=== PATIENT | female | born 1955 | race Caucasian/White ===

== ENCOUNTER 2021-09-17 01:23 | Observation (INO) | payer MEDICARE ==
--- NOTE | 2021-09-17 01:33 | ERPHSYRPT ---
- History of Present Illness Time Seen by Provider: 09/17/21 01:32 Source: patient, EMS Exam Limitations: clinical condition Physician History: This is a 66-year-old white female who has a history of hypothyroidism and arthritis and was recently placed on Humira. Patient took her first dose of Humira last night. Patient son said the last time he saw her was last evening. She woke up this morning confused and staring off into space. EMS service brought her in. There was a concern of a possible stroke. Patient denies hitting her head. She arrives to the emergency department vital signs normal and she is moving all her extremities. Patient's son states that she had a similar episode when they, in the past, attempted to take her off of thyroid medication. Patient reports, and son confirms that relatively recently she was taken off of thyroid medicine completely. Her primary care doctor is Dr. Aguilar. Timing/Duration: today Severity: mild Character of Deficits: other (Intermittently stares off then returned to normal baseline) Baseline/Normal Cognition: alert oriented x 3 Current Cognition: alert oriented x 3 Baseline Gait: walks w/o assistance Associated Symptoms: confusion Allergies/Adverse Reactions: Penicillins Allergy (Intermediate, Verified 09/17/21 03:13) Sulfa (Sulfonamide Antibiotics) Allergy (Intermediate, Verified 09/17/21 03:13) Home Medications: Unobtainable 09/17/21 [History] Travel Risk - International Travel Have you traveled outside of the country in past 3 weeks: No - Coronavirus Screening Are you exhibiting any of the following symptoms?: No Close contact with a COVID-19 positive Pt in past 14-21 Days: No - Past Medical History Pertinent Past Medical History: Yes - Past Surgical History Past Surgical History: Yes - Nursing Vital Signs Nursing Vital Signs: Initial Vital Signs Temperature 98.1 F 09/17/21 01:23 Pulse Rate 96 H 09/17/21 01:23 Respiratory Rate 16 09/17/21 01:23 Blood Pressure 144/100 09/17/21 01:23 O2 Sat by Pulse Oximetry 94 L 09/17/21 01:23 Pain Scale Pain Intensity 0 - James Coma Scale Best Eye Response ([place]): (4) open spontaneously Best Verbal Response ([place]): (5) oriented Best Motor Response ([place]): (6) obeys commands James Total: 15 - Physical Exam General Appearance: no apparent distress, alert, anxiety, thin Eye Exam: bilateral eye: normal inspection, PERRL, EOMI Ears, Nose, Throat Exam: normal ENT inspection, moist mucous membranes Neck Exam: normal inspection, non-tender, supple, full range of motion Respiratory: normal breath sounds, lungs clear, airway intact, No chest tenderness, No respiratory distress Cardiovascular: regular rate/rhythm, normal heart sounds, normal peripheral pulses Gastrointestinal: soft, normal bowel sounds, No tenderness Pelvic Exam: not done Rectal Exam: not done Back Exam: normal inspection, normal range of motion, CVA tenderness Extremity Exam: normal inspection, normal range of motion, pelvis stable Mental Status: alert, oriented x 3, cooperative forepart laster Exam: normal hearing, normal speech, PERRL, tongue midline Coordination/Gait: normal finger to nose Motor/Sensory: no motor deficit, no sensory deficit, no pronator drift Skin Exam: normal color, warm, dry SpO2 Interpretation: normal O2 Delivery: Room Air - Course Nursing assessment & vital signs reviewed: Yes EKG Interpreted by Me: RATE ([id number]), Sinus Rhythm, NORMAL AXIS, prolonged QT interval, Non-specific ST Changes, Other (No acute ischemic changes. No comparison EKG) Ordered Tests: Active Orders 24 hr Category Date Time Status Supervisor Engine Assembly STAT Care 09/17/21 01:34 Active Clean Catch Urine Specimen STAT Care 09/17/21 01:34 Active EKG-ER Only STAT Care 09/17/21 01:33 Active IV Insertion STAT Care 09/17/21 01:33 Active NPO (ED) STAT Care 09/17/21 01:33 Active Pulse Oximetry (ED) STAT Care 09/17/21 01:33 Active HEAD WITHOUT CONTRAST [CT] Stat Exams 09/17/21 01:33 Taken CBC W DIFF Stat Lab 09/17/21 01:46 Completed CMP Stat Lab 09/17/21 01:46 Completed ETHYL ALCOHOL Stat Lab 09/17/21 01:46 Completed T4 (Thyroxine) Stat Lab 09/17/21 01:48 Completed TSH [TSH, 3RD Generation] Stat Lab 09/17/21 01:48 Completed UA W/RFX UR CULTURE Stat Lab 09/17/21 01:33 Ordered Urine Triage Profile Stat Lab 09/17/21 01:34 Ordered Medication Summary Generic Name Dose Route Start Last Admin Trade Name Freq PRN Reason Stop Dose Admin Sodium Chloride 1,000 mls @ 100 mls/hr 09/17/21 01:45 09/17/21 01:47 Sodium Chloride 0.9% 1000 Ml IV 10/17/21 01:44 100 mls/hr .Q10H ESTRELLITA Administration Lab/Rad Data: Laboratory Result Diagrams 09/17/21 01:46 09/17/21 01:46 Laboratory Results 09/17/21 09/17/21 09/17/21 Range/Units 01:48 01:46 01:46 WBC (4.0-10.5) K/mm3 RBC (4.1-5.4) M/mm3 Hgb (12.0-16.0) gm/dl Hct (35-47) % MCV (78-100) fl MCH (26-32) pg MCHC (32-36) g/dl RDW (11.5-14.0) % Plt Count (150-450) K/mm3 Gran % (36.0-66.0) % Eos # (Auto) (0-0.5) Absolute Lymphs (auto) (1.0-4.6) Absolute Monos (auto) (0.0-1.3) Lymphocytes % (24.0-44.0) % Monocytes % (0.0-12.0) % Eosinophils % (0.00-5.0) % Basophils % (0.0-0.4) % Absolute Granulocytes (1.4-6.9) Basophils # (0-0.4) Sodium (137-145) mmol/L Potassium (3.5-5.1) mmol/L Chloride (98-107) mmol/L Carbon Dioxide (22-30) mmol/L Anion Gap (5-15) MEQ/L BUN (7-17) mg/dL Creatinine (0.52-1.04) mg/dL Estimated GFR ML/MIN Glucose (74-106) mg/dL Calcium (8.4-10.2) mg/dL Total Bilirubin (0.2-1.3) mg/dL AST (14-36) U/L ALT (0-35) U/L Alkaline Phosphatase (38-126) U/L Ammonia < 9 L (9-30) umol/L Serum Total Protein (6.3-8.2) g/dL Albumin (3.5-5.0) g/dL Thyroxine (T4) 6.34 (5.53-10.96) ug/dL TSH 3rd Generation 15.700 H (0.47-4.68) mIU/L Ethyl Alcohol < 10 (0-10) mg/dL 09/17/21 09/17/21 Range/Units 01:46 01:46 WBC 3.0 L (4.0-10.5) K/mm3 RBC 4.47 (4.1-5.4) M/mm3 Hgb 14.3 (12.0-16.0) gm/dl Hct 42.5 (35-47) % MCV 95.1 (78-100) fl MCH 32.0 (26-32) pg MCHC 33.6 (32-36) g/dl RDW 17.0 H (11.5-14.0) % Plt Count 24 L* (150-450) K/mm3 Gran % 84.3 H (36.0-66.0) % Eos # (Auto) 0.01 (0-0.5) Absolute Lymphs (auto) 0.30 L (1.0-4.6) Absolute Monos (auto) 0.14 (0.0-1.3) Lymphocytes % 10.0 L (24.0-44.0) % Monocytes % 4.7 (0.0-12.0) % Eosinophils % 0.3 (0.00-5.0) % Basophils % 0.7 (0.0-0.4) % Absolute Granulocytes 2.52 (1.4-6.9) Basophils # 0.02 (0-0.4) Sodium 132 L (137-145) mmol/L Potassium 4.3 (3.5-5.1) mmol/L Chloride 98 (98-107) mmol/L Carbon Dioxide 25 (22-30) mmol/L Anion Gap 13.1 (5-15) MEQ/L BUN 17 (7-17) mg/dL Creatinine 0.65 (0.52-1.04) mg/dL Estimated GFR > 60.0 ML/MIN Glucose 106 (74-106) mg/dL Calcium 9.1 (8.4-10.2) mg/dL Total Bilirubin 0.90 (0.2-1.3) mg/dL AST 41 H (14-36) U/L ALT 15 (0-35) U/L Alkaline Phosphatase 161 H (38-126) U/L Ammonia (9-30) umol/L Serum Total Protein 6.8 (6.3-8.2) g/dL Albumin 3.8 (3.5-5.0) g/dL Thyroxine (T4) (5.53-10.96) ug/dL TSH 3rd Generation (0.47-4.68) mIU/L Ethyl Alcohol (0-10) mg/dL - Progress Progress: improved, re-examined Progress Note: 09/17/21 02:43 CAT scan of the head stroke protocol reveals areas of ill-defined hypodensity bi lateral frontal lobes with an appearance of vasogenic edema. This is concerning for metastatic disease. Medical decision making: The nurse spoke with the patient's son and I spoke with the patient and both confirm that the patient has no history of any known cancers. I reviewed the results of the CAT scan with the patient. 09/17/21 Medical decision making: I spoke with Dr. Aguilar, the patient's primary care physician. I reviewed the patient history, condition, EKG findings, laboratory results and CAT scan of the head without contrast findings. He knows this patient well. He agrees with the patient should be admitted into the hospital and an MRI should be obtained. We will admit the patient to the hospital and obtain an MRI of the brain this morning. Discussed with : Dustin Counseled pt/family regarding: lab results, diagnosis, rad results - Departure Departure Disposition: In-patient Admission Clinical Impression: Thrombocytopenia, Vasogenic brain edema, Altered mental status Condition: Stable Critical Care Time: Yes Critical Care Time(excluding separately billable procedures): Critical 30-74 mins (35 minutes) Referrals: MARVIN AGUILAR MD [Primary Care Provider] - Follow up/PCP as directed
[2021-09-17] MEDS ORDERED: Sodium Chloride 0.9% 1000 ML 1,000 ML IV SCH (01:45)
[2021-09-17] MEDS ORDERED: Sodium Chloride 0.9% 1000 ML 1,000 ML ONE (01:46)
[2021-09-17 02:21] LABS: ALBUMIN 3.8 g/dL (3.5-5.0); ALKALINE PHOSPHATASE 161 U/L (38-126); ANION GAP 13.1 MEQ/L (5-15); Absolute Neutrophil Ct (ANC) 2.52 (1.4-6.9); BASOPHIL % 0.7 % (0.0-0.4); BLOOD UREA NITROGEN 17 mg/dL (7-17); Basophil (Absolute #) 0.02 (0-0.4); CHLORIDE 98 mmol/L (98-107); Calcium 9.1 mg/dL (8.4-10.2); Carbon Dioxide 25 mmol/L (22-30); Creatinine 1 0.65 mg/dL (0.52-1.04); EST GLOMERULAR FILTRATION RATE > 60.0 ML/MIN; Eosinophil % 0.3 % (0.00-5.0); Eosinophil (Absolute #) 0.01 (0-0.5); Glucose 106 mg/dL (74-106); Hematocrit 42.5 % (35-47); Hemoglobin 14.3 gm/dl (12.0-16.0); Mean Cell Volume 95.1 fl (78-100); Mean Corpuscular Hgb Concent. 33.6 g/dl (32-36); Monocyte (Absolute #) 0.14 (0.0-1.3); Monocytes % 4.7 % (0.0-12.0); Neutrophil % 84.3 % (36.0-66.0); Potassium 4.3 mmol/L (3.5-5.1); Red Blood Count 4.47 M/mm3 (4.1-5.4); SGOT/AST 41 U/L (14-36); SGPT/ALT 15 U/L (0-35); SODIUM 132 mmol/L (137-145); Total Protein 6.8 g/dL (6.3-8.2)
[2021-09-17 02:25] LABS: Platelet Count 24 K/mm3 (150-450)
[2021-09-17 03:05] LABS: T4 (Thyroxine) 6.34 ug/dL (5.53-10.96); TSH, 3RD Generation 15.7 mIU/L (0.47-4.68)
[2021-09-17 04:13] LABS: Slide Review 1 YES
[2021-09-17 04:15] LABS: Amphetamine,Urine NEGATIVE (NEGATIVE); Barbiturate,Urine NEGATIVE (NEGATIVE); Benzodiazepine,Urine NEGATIVE (NEGATIVE); Cocaine,Urine NEGATIVE (NEGATIVE); Methadone,Urine NEGATIVE (NEGATIVE); Opiate,Urine NEGATIVE (NEGATIVE); PCP,Urine NEGATIVE (NEGATIVE); THC,Urine NEGATIVE (NEGATIVE)
[2021-09-17 04:20] LABS: Appearance SLIGHTLY CLOUDY (CLEAR); Bilirubin NEGATIVE (NEGATIVE); Blood NEGATIVE Ery/ul (0-5); Glucose NEGATIVE (NEGATIVE); Ketones SMALL (NEGATIVE); Leukocyte Esterase SMALL (NEGATIVE); Mucus SLIGHT /HPF (NEGATIVE); Nitrite NEGATIVE (NEGATIVE); Protein,Urine Dip 100 (Negative); Urobilinogen 2 mg/dL (0-1)
[2021-09-17] MEDS ORDERED: TYLENOL 325 MG PO PRN (05:50)
[2021-09-17] MEDS ORDERED: Zofran 4 MG/2 ML VIAL IV PRN (05:50)
[2021-09-17] MEDS: Sodium Chloride 0.9% 1000 ML 1,000 ML IV SCH (07:00)
--- NOTE | 2021-09-17 08:41 | PCM.HP ---
History of Present Illness - Chief Complaint Chief Complaint: Altered Mental Status History of Present Illness: is a 66 year old female.who has a history of hypothyroidism and arthritis and was recently placed on Humira. Patient took her first dose of Humira last night. Patient son said the last time he saw her was last evening. She woke up this morning confused and staring off into space. EMS service brought her in. There was a concern of a possible stroke. Patient denies h itting her head. She arrives to the emergency department vital signs normal and she is moving all her extremities. Patient's son states that she had a similar episode when they, in the past, attempted to take her off of thyroid medication. Patient reports, and son confirms that relatively recently she was taken off of thyroid medicine completely. Her primary care doctor is Dr. Borja. Timing/Duration: today Severity: mild Character of Deficits: other (Intermittently stares off then returned to normal baseline) Baseline/Normal Cognition: alert oriented x 3 Current Cognition: alert oriented x 3 Baseline Gait: walks w/o assistance Associated Symptoms: confusion - Review of Systems Constitutional: Lethargy, Weakness, No Fever, No Chills Eyes: No Symptoms Ears, Nose, & Throat: No Symptoms Respiratory: No Cough, No Short Of Breath Cardiac: No Chest Pain, No Edema, No Syncope Abdominal/Gastrointestinal: No Abdominal Pain, No Nausea, No Vomiting, No Diarrhea Genitourinary Symptoms: No Dysuria Musculoskeletal: No Back Pain, No Neck Pain Skin: No Rash Neurological: No Dizziness, No Focal Weakness, No Sensory Changes Psychological: No Symptoms Endocrine: No Symptoms Hematologic/Lymphatic: No Symptoms Immunological/Allergic: No Symptoms Medications & Allergies Home Medications: Home Medication List Unobtainable 09/17/21 [History Confirmed 09/17/21] Allergies/Adverse Reactions: Allergies Allergy/AdvReac Type Severity Reaction Status Date / Time Penicillins Allergy Intermediate Verified 09/17/21 03:13 Sulfa (Sulfonamide Allergy Intermediate Verified 09/17/21 03:13 Antibiotics) - Past Medical History Past Medical History: Yes Neurological History: Stroke Cardiac History: Coronary Artery Disease, Myocardial Infarction (NH) Respiratory History: COPD Musculoskelatal History: Rheumatoid Arthritis Comment: Patient is not the best historian - Female History Are you now?: No - Past Surgical History Past Surgical History: Yes Musculskeletal Surgical Hx: Orthopedic Surgery Other Surgical History: hx of bilat shoulder surgery. pt poor historian at this time. hx obtained from pt's son over the phone. - Social History Smoking Status: Former smoker How long have you smoked: years Exposure to second hand smoke: Yes (Son) Alcohol: None Drug Use: none - Physical Exam Vital Signs: Vital Signs - 24 hr Temp Pulse Resp BP Pulse Ox 09/17/21 06:22 98.2 F 83 19 134/95 96 09/17/21 06:18 96 09/17/21 05:17 86 14 134/99 96 09/17/21 04:23 89 16 142/102 96 09/17/21 04:00 87 16 142/102 95 09/17/21 03:04 97 09/17/21 03:00 82 18 135/90 96 09/17/21 02:23 79 18 129/89 97 09/17/21 01:23 98.1 F 96 H 16 144/100 94 L General Appearance: no apparent distress, alert Neurologic Exam: alert, normal mood/affect, nml cerebellar function, nml station & gait, sensation nml, disoriented, No motor deficits Eye Exam: PERRL/EOMI, eyes nml inspection Ears, Nose, Throat Exam: normal ENT inspection, TMs normal, pharynx normal, moist mucous membranes Neck Exam: normal inspection, non-tender, supple, full range of motion Respiratory Exam: normal breath sounds, lungs clear, No respiratory distress Cardiovascular Exam: regular rate/rhythm, normal heart sounds, normal peripheral pulses Gastrointestinal/Abdomen Exam: soft, normal bowel sounds, No tenderness, No mass Back Exam: normal inspection, normal range of motion, No CVA tenderness, No vertebral tenderness Extremity Exam: normal inspection, normal range of motion, pelvis stable Skin Exam: normal color, warm, dry, No rash Lymphatic Exam: No adenopathy Results - Labs Lab/Micro Results: Lab Results-Last 24 Hours 09/17/21 09/17/21 09/17/21 Range/Units 01:46 01:46 01:46 WBC 3.0 L (4.0-10.5) K/mm3 RBC 4.47 (4.1-5.4) M/mm3 Hgb 14.3 (12.0-16.0) gm/dl Hct 42.5 (35-47) % MCV 95.1 (78-100) fl MCH 32.0 (26-32) pg MCHC 33.6 (32-36) g/dl RDW 17.0 H (11.5-14.0) % Plt Count 24 L* (150-450) K/mm3 Gran % 84.3 H (36.0-66.0) % Eos # (Auto) 0.01 (0-0.5) Absolute Lymphs (auto) 0.30 L (1.0-4.6) Absolute Monos (auto) 0.14 (0.0-1.3) Lymphocytes % 10.0 L (24.0-44.0) % Monocytes % 4.7 (0.0-12.0) % Eosinophils % 0.3 (0.00-5.0) % Basophils % 0.7 (0.0-0.4) % Absolute Granulocytes 2.52 (1.4-6.9) Basophils # 0.02 (0-0.4) Sodium 132 L (137-145) mmol/L Potassium 4.3 (3.5-5.1) mmol/L Chloride 98 (98-107) mmol/L Carbon Dioxide 25 (22-30) mmol/L Anion Gap 13.1 (5-15) MEQ/L BUN 17 (7-17) mg/dL Creatinine 0.65 (0.52-1.04) mg/dL Estimated GFR > 60.0 ML/MIN Glucose 106 (74-106) mg/dL Calcium 9.1 (8.4-10.2) mg/dL Total Bilirubin 0.90 (0.2-1.3) mg/dL AST 41 H (14-36) U/L ALT 15 (0-35) U/L Alkaline Phosphatase 161 H (38-126) U/L Ammonia (9-30) umol/L Serum Total Protein 6.8 (6.3-8.2) g/dL Albumin 3.8 (3.5-5.0) g/dL Thyroxine (T4) (5.53-10.96) ug/dL TSH 3rd Generation (0.47-4.68) mIU/L Urine Color (YELLOW) Urine Appearance (CLEAR) Urine pH (5-6) Ur Specific Tyler (1.005-1.025) Urine Protein (Negative) Urine Ketones (NEGATIVE) Urine Blood (0-5) Jacek/ul Urine Nitrite (NEGATIVE) Urine Bilirubin (NEGATIVE) Urine Urobilinogen (0-1) mg/dL Ur Leukocyte Esterase (NEGATIVE) Urine WBC (Auto) (0-5) /HPF Urine RBC (Auto) (0-2) /HPF U Epithel Cells (Auto) (FEW) /HPF Urine Bacteria (Auto) (NEGATIVE) /HPF Urine Mucus (Auto) (NEGATIVE) /HPF Urine Culture Reflexed (NO) Urine Glucose (NEGATIVE) mg/dL Urine Opiates Level (NEGATIVE) Ur Methadone (NEGATIVE) Urine Barbiturates (NEGATIVE) Ur Phencyclidine (PCP) (NEGATIVE) Urine Amphetamine (NEGATIVE) U Benzodiazepine Level (NEGATIVE) Urine Cocaine (NEGATIVE) Urine Marijuana (THC) (NEGATIVE) Ethyl Alcohol < 10 (0-10) mg/dL SARS-CoV-2 (PCR) (NEGATIVE) Slides for Path Review YES 09/17/21 09/17/21 09/17/21 Range/Units 01:46 01:48 03:36 WBC (4.0-10.5) K/mm3 RBC (4.1-5.4) M/mm3 Hgb (12.0-16.0) gm/dl Hct (35-47) % MCV (78-100) fl MCH (26-32) pg MCHC (32-36) g/dl RDW (11.5-14.0) % Plt Count (150-450) K/mm3 Gran % (36.0-66.0) % Eos # (Auto) (0-0.5) Absolute Lymphs (auto) (1.0-4.6) Absolute Monos (auto) (0.0-1.3) Lymphocytes % (24.0-44.0) % Monocytes % (0.0-12.0) % Eosinophils % (0.00-5.0) % Basophils % (0.0-0.4) % Absolute Granulocytes (1.4-6.9) Basophils # (0-0.4) Sodium (137-145) mmol/L Potassium (3.5-5.1) mmol/L Chloride (98-107) mmol/L Carbon Dioxide (22-30) mmol/L Anion Gap (5-15) MEQ/L BUN (7-17) mg/dL Creatinine (0.52-1.04) mg/dL Estimated GFR ML/MIN Glucose (74-106) mg/dL Calcium (8.4-10.2) mg/dL Total Bilirubin (0.2-1.3) mg/dL AST (14-36) U/L ALT (0-35) U/L Alkaline Phosphatase (38-126) U/L Ammonia < 9 L (9-30) umol/L Serum Total Protein (6.3-8.2) g/dL Albumin (3.5-5.0) g/dL Thyroxine (T4) 6.34 (5.53-10.96) ug/dL TSH 3rd Generation 15.700 H (0.47-4.68) mIU/L Urine Color CHRISTOPHER (YELLOW) Urine Appearance SLIGHTLY CLOUDY (CLEAR) Urine pH 6.0 (5-6) Ur Specific Tyler 1.020 (1.005-1.025) Urine Protein 100 (Negative) Urine Ketones SMALL (NEGATIVE) Urine Blood NEGATIVE (0-5) Jacek/ul Urine Nitrite NEGATIVE (NEGATIVE) Urine Bilirubin NEGATIVE (NEGATIVE) Urine Urobilinogen 2 (0-1) mg/dL Ur Leukocyte Esterase SMALL (NEGATIVE) Urine WBC (Auto) 16-25 (0-5) /HPF Urine RBC (Auto) 16-25 (0-2) /HPF U Epithel Cells (Auto) NONE (FEW) /HPF Urine Bacteria (Auto) NONE (NEGATIVE) /HPF Urine Mucus (Auto) SLIGHT (NEGATIVE) /HPF Urine Culture Reflexed YES (NO) Urine Glucose NEGATIVE (NEGATIVE) mg/dL Urine Opiates Level (NEGATIVE) Ur Methadone (NEGATIVE) Urine Barbiturates (NEGATIVE) Ur Phencyclidine (PCP) (NEGATIVE) Urine Amphetamine (NEGATIVE) U Benzodiazepine Level (NEGATIVE) Urine Cocaine (NEGATIVE) Urine Marijuana (THC) (NEGATIVE) Ethyl Alcohol (0-10) mg/dL SARS-CoV-2 (PCR) (NEGATIVE) Slides for Path Review 09/17/21 09/17/21 Range/Units 03:36 04:26 WBC (4.0-10.5) K/mm3 RBC (4.1-5.4) M/mm3 Hgb (12.0-16.0) gm/dl Hct (35-47) % MCV (78-100) fl MCH (26-32) pg MCHC (32-36) g/dl RDW (11.5-14.0) % Plt Count (150-450) K/mm3 Gran % (36.0-66.0) % Eos # (Auto) (0-0.5) Absolute Lymphs (auto) (1.0-4.6) Absolute Monos (auto) (0.0-1.3) Lymphocytes % (24.0-44.0) % Monocytes % (0.0-12.0) % Eosinophils % (0.00-5.0) % Basophils % (0.0-0.4) % Absolute Granulocytes (1.4-6.9) Basophils # (0-0.4) Sodium (137-145) mmol/L Potassium (3.5-5.1) mmol/L Chloride (98-107) mmol/L Carbon Dioxide (22-30) mmol/L Anion Gap (5-15) MEQ/L BUN (7-17) mg/dL Creatinine (0.52-1.04) mg/dL Estimated GFR ML/MIN Glucose (74-106) mg/dL Calcium (8.4-10.2) mg/dL Total Bilirubin (0.2-1.3) mg/dL AST (14-36) U/L ALT (0-35) U/L Alkaline Phosphatase (38-126) U/L Ammonia (9-30) umol/L Serum Total Protein (6.3-8.2) g/dL Albumin (3.5-5.0) g/dL Thyroxine (T4) (5.53-10.96) ug/dL TSH 3rd Generation (0.47-4.68) mIU/L Urine Color (YELLOW) Urine Appearance (CLEAR) Urine pH (5-6) Ur Specific Tyler (1.005-1.025) Urine Protein (Negative) Urine Ketones (NEGATIVE) Urine Blood (0-5) Jacek/ul Urine Nitrite (NEGATIVE) Urine Bilirubin (NEGATIVE) Urine Urobilinogen (0-1) mg/dL Ur Leukocyte Esterase (NEGATIVE) Urine WBC (Auto) (0-5) /HPF Urine RBC (Auto) (0-2) /HPF U Epithel Cells (Auto) (FEW) /HPF Urine Bacteria (Auto) (NEGATIVE) /HPF Urine Mucus (Auto) (NEGATIVE) /HPF Urine Culture Reflexed (NO) Urine Glucose (NEGATIVE) mg/dL Urine Opiates Level NEGATIVE (NEGATIVE) Ur Methadone NEGATIVE (NEGATIVE) Urine Barbiturates NEGATIVE (NEGATIVE) Ur Phencyclidine (PCP) NEGATIVE (NEGATIVE) Urine Amphetamine NEGATIVE (NEGATIVE) U Benzodiazepine Level NEGATIVE (NEGATIVE) Urine Cocaine NEGATIVE (NEGATIVE) Urine Marijuana (THC) NEGATIVE (NEGATIVE) Ethyl Alcohol (0-10) mg/dL SARS-CoV-2 (PCR) NEGATIVE (NEGATIVE) Slides for Path Review - Radiology Impressions Radiology Exams & Impressions: Radiology Procedures Category Date Time Status HEAD WITHOUT CONTRAST [CT] Stat Exams 09/17/21 01:33 Taken MRI BRAIN W/O CONTRAST [MRI] Stat Exams 09/17/21 05:50 Ordered Assessment/Plan (1) Altered mental status Current Visit: Yes Status: Acute Qualifiers: Altered mental status type: disorientation Qualified Code(s): R41.0 - Disorientation, unspecified Assessment & Plan: Chief Complaint Diagnosis Altered Mental Status Allergies Allergy/AdvReac Type Severity Reaction Status Date / Time Penicillins Allergy Intermediate Verified 09/17/21 03:13 Sulfa (Sulfonamide Allergy Intermediate Verified 09/17/21 03:13 Antibiotics) Vital Signs (Last 24 hours) Temp Pulse Resp BP Pulse Ox 09/17/21 06:22 98.2 F 83 19 134/95 96 09/17/21 06:18 96 09/17/21 05:17 86 14 134/99 96 09/17/21 04:23 89 16 142/102 96 09/17/21 04:00 87 16 142/102 95 09/17/21 03:04 97 09/17/21 03:00 82 18 135/90 96 09/17/21 02:23 79 18 129/89 97 09/17/21 01:23 98.1 F 96 H 16 144/100 94 L Home Medications Medication Instructions Recorded Confirmed Last Taken Type Unobtainable 09/17/21 09/17/21 Unknown History Current Medications Generic Name Dose Route Start Last Admin Trade Name Freq PRN Reason Stop Dose Admin Acetaminophen 650 mg 09/17/21 05:50 Acetaminophen 325 Mg Tablet PO 10/17/21 05:49 Q4H PRN PRN PAIN, FEVER, HEADACHE Sodium Chloride 1,000 mls @ 50 mls/hr 09/17/21 05:50 09/17/21 07:00 Sodium Chloride 0.9% 1000 Ml IV 12/12/21 05:49 50 mls/hr .Q20H ESTRELLITA Administration Ondansetron HCl 4 mg 09/17/21 05:50 Ondansetron Hcl 4 Mg/2 Ml Vial IV 10/17/21 05:49 Q6H PRN PRN NAUSEA/VOMITING Discontinued Medications Generic Name Dose Route Start Last Admin Trade Name Freq PRN Reason Stop Dose Admin Sodium Chloride 1,000 mls @ 100 mls/hr 09/17/21 01:45 09/17/21 01:47 Sodium Chloride 0.9% 1000 Ml IV 10/17/21 01:44 100 mls/hr .Q10H ESTRELLITA Administration Sodium Chloride Confirm 09/17/21 01:46 Sodium Chloride 0.9% 1000 Ml Administered 09/17/21 01:47 Dose 1,000 mls @ ud .ROUTE .STK-MED ONE Intake & Output (Last 24 hours) 09/14/21 09/15/21 09/16/21 09/17/21 11:59 11:59 11:59 11:59 Weight 44.6 kg Microbiology Results (Last 24 hours) 09/17/21 03:36 Urine, Void Urine Culture - Pending Laboratory Results (Last 24 hours) 09/17/21 09/17/21 09/17/21 04:26 03:36 03:36 WBC RBC Hgb Hct MCV MCH MCHC RDW Plt Count Gran % Eos # (Auto) Absolute Lymphs (auto) Absolute Monos (auto) Lymphocytes % Monocytes % Eosinophils % Basophils % Absolute Granulocytes Basophils # Sodium Potassium Chloride Carbon Dioxide Anion Gap BUN Creatinine Estimated GFR Glucose Calcium Total Bilirubin AST ALT Alkaline Phosphatase Ammonia Serum Total Protein Albumin Thyroxine (T4) TSH 3rd Generation Urine Color CHRISTOPHER Urine Appearance SLIGHTLY CLOUDY Urine pH 6.0 Ur Specific Tyler 1.020 Urine Protein 100 Urine Ketones SMALL Urine Blood NEGATIVE Urine Nitrite NEGATIVE Urine Bilirubin NEGATIVE Urine Urobilinogen 2 Ur Leukocyte Esterase SMALL Urine WBC (Auto) 16-25 Urine RBC (Auto) 16-25 U Epithel Cells (Auto) NONE Urine Bacteria (Auto) NONE Urine Mucus (Auto) SLIGHT Urine Culture Reflexed YES Urine Glucose NEGATIVE Urine Opiates Level NEGATIVE Ur Methadone NEGATIVE Urine Barbiturates NEGATIVE Ur Phencyclidine (PCP) NEGATIVE Urine Amphetamine NEGATIVE U Benzodiazepine Level NEGATIVE Urine Cocaine NEGATIVE Urine Marijuana (THC) NEGATIVE Ethyl Alcohol SARS-CoV-2 (PCR) NEGATIVE Slides for Path Review 09/17/21 09/17/21 09/17/21 01:48 01:46 01:46 WBC RBC Hgb Hct MCV MCH MCHC RDW Plt Count Gran % Eos # (Auto) Absolute Lymphs (auto) Absolute Monos (auto) Lymphocytes % Monocytes % Eosinophils % Basophils % Absolute Granulocytes Basophils # Sodium Potassium Chloride Carbon Dioxide Anion Gap BUN Creatinine Estimated GFR Glucose Calcium Total Bilirubin AST ALT Alkaline Phosphatase Ammonia < 9 L Serum Total Protein Albumin Thyroxine (T4) 6.34 TSH 3rd Generation 15.700 H Urine Color Urine Appearance Urine pH Ur Specific Tyler Urine Protein Urine Ketones Urine Blood Urine Nitrite Urine Bilirubin Urine Urobilinogen Ur Leukocyte Esterase Urine WBC (Auto) Urine RBC (Auto) U Epithel Cells (Auto) Urine Bacteria (Auto) Urine Mucus (Auto) Urine Culture Reflexed Urine Glucose Urine Opiates Level Ur Methadone Urine Barbiturates Ur Phencyclidine (PCP) Urine Amphetamine U Benzodiazepine Level Urine Cocaine Urine Marijuana (THC) Ethyl Alcohol < 10 SARS-CoV-2 (PCR) Slides for Path Review 09/17/21 09/17/21 01:46 01:46 WBC 3.0 L RBC 4.47 Hgb 14.3 Hct 42.5 MCV 95.1 MCH 32.0 MCHC 33.6 RDW 17.0 H Plt Count 24 L* Gran % 84.3 H Eos # (Auto) 0.01 Absolute Lymphs (auto) 0.30 L Absolute Monos (auto) 0.14 Lymphocytes % 10.0 L Monocytes % 4.7 Eosinophils % 0.3 Basophils % 0.7 Absolute Granulocytes 2.52 Basophils # 0.02 Sodium 132 L Potassium 4.3 Chloride 98 Carbon Dioxide 25 Anion Gap 13.1 BUN 17 Creatinine 0.65 Estimated GFR > 60.0 Glucose 106 Calcium 9.1 Total Bilirubin 0.90 AST 41 H ALT 15 Alkaline Phosphatase 161 H Ammonia Serum Total Protein 6.8 Albumin 3.8 Thyroxine (T4) TSH 3rd Generation Urine Color Urine Appearance Urine pH Ur Specific Tyler Urine Protein Urine Ketones Urine Blood Urine Nitrite Urine Bilirubin Urine Urobilinogen Ur Leukocyte Esterase Urine WBC (Auto) Urine RBC (Auto) U Epithel Cells (Auto) Urine Bacteria (Auto) Urine Mucus (Auto) Urine Culture Reflexed Urine Glucose Urine Opiates Level Ur Methadone Urine Barbiturates Ur Phencyclidine (PCP) Urine Amphetamine U Benzodiazepine Level Urine Cocaine Urine Marijuana (THC) Ethyl Alcohol SARS-CoV-2 (PCR) Slides for Path Review YES Orders (Last 24 hours) Category Date Time Status Bedrest TOLERATED Activity 09/17/21 05:50 Active Admit as Inpatient ROUTINE Care 09/17/21 05:50 Active Neonatal Pediatric Nurse STAT Care 09/17/21 01:34 Completed Clean Catch Urine Specimen STAT Care 09/17/21 01:34 Completed EKG-ER Only STAT Care 09/17/21 01:33 Completed IV Insertion STAT Care 09/17/21 01:33 Completed NPO (ED) STAT Care 09/17/21 01:33 Completed Pulse Oximetry (ED) STAT Care 09/17/21 01:33 Completed Weight,Daily 0600 Care 09/17/21 05:50 Active Cardio-Pulmonary Rehab .as ordered Cons 09/17/21 08:00 Active Heart-Healthy Diet Diet 09/17/21 Breakfast Active Nutritional Admission Screen ONCE Diet 09/17/21 08:00 Active HEAD WITHOUT CONTRAST [CT] Stat Exams 09/17/21 01:33 Taken MRI BRAIN W/O CONTRAST [MRI] Stat Exams 09/17/21 05:50 Ordered AMMONIA Stat Lab 09/17/21 01:46 Completed CBC W DIFF Stat Lab 09/17/21 01:46 Completed CMP Stat Lab 09/17/21 01:46 Completed CULTURE,URINE Stat Lab 09/17/21 03:36 Received ETHYL ALCOHOL Stat Lab 09/17/21 01:46 Completed T4 (Thyroxine) Stat Lab 09/17/21 01:48 Completed TSH [TSH, 3RD Generation] Stat Lab 09/17/21 01:48 Completed UA W/RFX UR CULTURE Stat Lab 09/17/21 03:36 Completed Urine Triage Profile Stat Lab 09/17/21 03:36 Completed Acetaminophen 325 mg [Tylenol 325 mg] Med 09/17/21 05:50 Active 650 mg PO Q4H PRN PRN NaCl 0.9% 1000 ml [Sodium Chloride 0.9% 1000 ML] 1,000 Med 09/17/21 01:46 Discontinued ml .ROUTE UD NaCl 0.9% 1000 ml [Sodium Chloride 0.9% 1000 ML] 1,000 Med 09/17/21 01:45 Discontinued ml IV 100 mls/hr NaCl 0.9% 1000 ml [Sodium Chloride 0.9% 1000 ML] 1,000 Med 09/17/21 05:50 Active ml IV 50 mls/hr Ondansetron HCl 4 mg/2 ml [Zofran 4 MG/2 ML VIAL] Med 09/17/21 05:50 Active 4 mg IV Q6H PRN PRN Pulse Oximetry ROUTINE RT 09/17/21 05:50 Active Transfer Order Routine Transfer 09/17/21 Completed Code(s): R41.82 - ALTERED MENTAL STATUS, UNSPECIFIED (2) Thrombocytopenia Current Visit: Yes Status: Acute (3) Vasogenic brain edema Current Visit: Yes Status: Acute Code(s): G93.6 - CEREBRAL EDEMA
--- NOTE | 2021-09-17 09:32 | XRAY ---
Indication: Acute mental status change. Stroke. Multiple contiguous axial images obtained through the head without contrast. Comparison: None Age-appropriate global atrophy and mild periventricular degenerative micro-ischemia. Anterior parietal lobe demonstrates moderate right and mild left cortical/subcortical vague hypodensities without mass effect/midline shifting. Findings most likely gliosis from old infarct. No acute intracranial hemorrhage, abnormal extra axial fluid collection, or hydrocephalus. Left maxillary sinus demonstrates moderate fluid leveling. Remaining visualized paranasal sinuses and mastoid air cells are clear. Impression: 1. Bilateral anterior parietal lobe cortical/subcortical hypodensities as detailed favoring old infarcts. Outside comparison studies or MRI brain may yield further information if there remains clinical concern. 2. Normal aging brain including atrophy and degenerative micro-ischemia. Comment: Preliminary interpretation made by [facility]. No critical discrepancy.
--- NOTE | 2021-09-17 11:13 | XRAY ---
Indication: Memory loss. Vasogenic edema. Sagittal, coronal, and axial MRI brain performed without contrast using T1, T2, FLAIR, diffusion, and ADC sequences. Comparison: None Age-appropriate global atrophy and mild periventricular degenerative micro-ischemia signal bilaterally. Brainstem demonstrates lesser minimal degenerative micro-ischemia signal. Old bilateral parietal lobe infarcts anteriorly, right greater than left with surrounding gliosis. Diffusion images are negative for restricted signal. No acute intracranial hemorrhage, abnormal extra-axial fluid collection, or mass effect. Fourth ventricle is midline without hydrocephalus. 7/8 cranial nerve complex bilaterally symmetric. Normal flow-void signal within the major intracerebral circulation. Normal appearing craniocervical junction and sella turcica. Fluid leveling left maxillary sinus. Impression: 1. Old bilateral parietal lobe infarcts as detailed. 2. Normal aging brain including atrophy and degenerative micro-ischemia as detailed. 3. Incidental left maxillary sinus disease.
[2021-09-17] MEDS: Spiriva 18 Mcg/Cap Inhaler IH SCH (13:10)
[2021-09-17] MEDS: Advair Hfa 115/21 Common canister IH SCH ×2 (13:10→19:45)
[2021-09-17] MEDS ORDERED: OXYCODONE HCL 5 MG PO PRN (13:21)
[2021-09-17] MEDS ORDERED: Oxy-IR 5 MG PO PRN (13:25)
[2021-09-17] MEDS ORDERED: MEDICATION INTERVENTION PO SCH (14:00)
[2021-09-17] MEDS: FOLATE 1 MG PO SCH (14:53)
[2021-09-17] MEDS: Protonix 40MG Tablet PO SCH (14:53)
[2021-09-17] MEDS: Neurontin 100 MG PO SCH (14:53)
[2021-09-17] MEDS: DELTASONE 20 MG PO SCH (14:53)
[2021-09-17] MEDS: Coreg 3.125 MG PO SCH (14:53)
[2021-09-17] MEDS: Paxil 20 MG PO SCH (14:53)
[2021-09-17] MEDS: Flonase NASAL NS SCH (14:54)
[2021-09-18] MEDS: Coreg 3.125 MG PO SCH ×3 (00:01→21:45)
[2021-09-18] MEDS: Neurontin 100 MG PO SCH ×3 (00:01→21:45)
[2021-09-18] MEDS: REMERON 30 MG PO SCH ×2 (00:01→21:45)
[2021-09-18] MEDS: DELTASONE 20 MG PO SCH ×3 (00:02→21:45)
[2021-09-18] MEDS: ZOCOR 20MG PO SCH ×2 (00:02→10:36)
[2021-09-18 05:48] LABS: BASOPHIL % 0.8 % (0.0-0.4); Basophil (Absolute #) 0.02 (0-0.4); Eosinophil (Absolute #) 0 (0-0.5); Hematocrit 40.4 % (35-47); Hemoglobin 13.2 gm/dl (12.0-16.0); Lymphocyte (Absolute #) 0.32 (1.0-4.6); Lymphocytes % 12.3 % (24.0-44.0); Mean Cell Volume 96.2 fl (78-100); Mean Corpuscular Hemoglobin 31.4 pg (26-32); Mean Corpuscular Hgb Concent. 32.7 g/dl (32-36); Monocyte (Absolute #) 0.06 (0.0-1.3); Monocytes % 2.3 % (0.0-12.0); Neutrophil % 84.6 % (36.0-66.0); White Blood Count 2.6 K/mm3 (4.0-10.5)
[2021-09-18 06:01] LABS: Platelet Count 15 K/mm3 (150-450)
[2021-09-18] MEDS: Spiriva 18 Mcg/Cap Inhaler IH SCH (07:28)
[2021-09-18] MEDS: Advair Hfa 115/21 Common canister IH SCH ×2 (07:28→19:47)
[2021-09-18 09:44] LABS: ABO TYPING A; Antibody Screen NEGATIVE (NEGATIVE); RH TYPING NEGATIVE
[2021-09-18] MEDS ORDERED: NON-FORMULARY ITEM (Leflunomide [Leflunomide] 20 MG Tablet) PO SCH (10:00)
[2021-09-18] MEDS ORDERED: NON-FORMULARY ITEM (Atorvastatin Calcium 20 MG Tab) PO SCH (10:00)
[2021-09-18] MEDS ORDERED: NON-FORMULARY ITEM (Omeprazole [Omeprazole] 20 MG Capsule.Dr) PO SCH (10:00)
[2021-09-18] MEDS: Paxil 20 MG PO SCH (10:36)
[2021-09-18] MEDS: Protonix 40MG Tablet PO SCH (10:36)
[2021-09-18] MEDS: FOLATE 1 MG PO SCH (10:37)
[2021-09-18] MEDS: Flonase NASAL NS SCH (10:37)
[2021-09-18 12:38] LABS: Slide Review 1 YES
[2021-09-18] MEDS: Sodium Chloride 0.9% 1000 ML 1,000 ML IV SCH (17:53)
[2021-09-18] MEDS ORDERED: APRESOLINE 20 MG/ML INJ IV PRN (22:45)
[2021-09-19 06:49] LABS: Absolute Neutrophil Ct (ANC) 3.33 (1.4-6.9); BASOPHIL % 0.3 % (0.0-0.4); Basophil (Absolute #) 0.01 (0-0.4); Eosinophil (Absolute #) 0 (0-0.5); Hematocrit 37.8 % (35-47); Hemoglobin 12.2 gm/dl (12.0-16.0); Lymphocyte (Absolute #) 0.26 (1.0-4.6); Mean Cell Volume 98.2 fl (78-100); Mean Corpuscular Hemoglobin 31.7 pg (26-32); Mean Corpuscular Hgb Concent. 32.3 g/dl (32-36); Mean Platelet Volume 10.7 fl (7.5-11.0); Monocyte (Absolute #) 0.12 (0.0-1.3); Monocytes % 3.2 % (0.0-12.0); Neutrophil % 89.5 % (36.0-66.0); Red Blood Count 3.85 M/mm3 (4.1-5.4); Red Cell Distribution Width 17.2 % (11.5-14.0); White Blood Count 3.7 K/mm3 (4.0-10.5)
[2021-09-19 06:55] LABS: Platelet Count 122 K/mm3 (150-450)
[2021-09-19 07:11] LABS: ANION GAP 7.8 MEQ/L (5-15); BLOOD UREA NITROGEN 14 mg/dL (7-17); CHLORIDE 104 mmol/L (98-107); Calcium 8.8 mg/dL (8.4-10.2); Carbon Dioxide 32 mmol/L (22-30); Creatinine 1 0.76 mg/dL (0.52-1.04); EST GLOMERULAR FILTRATION RATE > 60.0 ML/MIN; Glucose 109 mg/dL (74-106); Potassium 4.5 mmol/L (3.5-5.1); SODIUM 140 mmol/L (137-145)
[2021-09-19] MEDS: Advair Hfa 115/21 Common canister IH SCH (07:27)
[2021-09-19] MEDS: Spiriva 18 Mcg/Cap Inhaler IH SCH (07:27)
[2021-09-19] MEDS: ZOCOR 20MG PO SCH (10:00)
[2021-09-19] MEDS: FOLATE 1 MG PO SCH (10:00)
[2021-09-19] MEDS: Flonase NASAL NS SCH (10:00)
[2021-09-19] MEDS: Neurontin 100 MG PO SCH (10:00)
[2021-09-19] MEDS: DELTASONE 20 MG PO SCH (10:01)
[2021-09-19] MEDS: Paxil 20 MG PO SCH (10:01)
[2021-09-19] MEDS: Coreg 3.125 MG PO SCH (10:01)
[2021-09-19] MEDS: Protonix 40MG Tablet PO SCH (10:02)
--- NOTE | 2021-09-20 13:19 | PCM.DS ---
Discharge Summary Date of Admission: 09/17/21 05:45 Admitting Physician: MARVIN AGUILAR Primary Care Provider: MARVIN AGUILAR Allergies Allergies Penicillins Allergy (Intermediate, Verified 09/17/21 03:13) Sulfa (Sulfonamide Antibiotics) Allergy (Intermediate, Verified 09/17/21 03:13) Hospital Summary - Hospital Course Hospital Course: Chief Complaint Diagnosis Altered Mental Status Allergies Allergy/AdvReac Type Severity Reaction Status Date / Time Penicillins Allergy Intermediate Verified 09/17/21 03:13 Sulfa (Sulfonamide Allergy Intermediate Verified 09/17/21 03:13 Antibiotics) Home Medications Medication Instructions Recorded Confirmed Last Taken Type Atorvastatin Calcium [Lipitor 20MG 20 mg PO DAILY 09/17/21 09/17/21 Unknown History Tablet] Carvedilol 3.125 mg [Coreg 3.125 mg PO BID 09/17/21 09/17/21 Unknown History 3.125 MG] Fluticasone Propionate [Flonase 1 spray NS DAILY 09/17/21 09/17/21 Unknown History NASAL] Fluticasone/Salmeterol 2 puff IH BID 09/17/21 09/17/21 Unknown History [Advair Hfa 45-21 Mcg Inhaler] Folic Acid 1 mg [Folate 1 mg] 1 mg PO DAILY 09/17/21 09/17/21 Unknown History Gabapentin 100 mg [Neurontin 100 mg PO BID 09/17/21 09/17/21 Unknown History 100 MG] Leflunomide 20 mg PO DAILY 09/17/21 09/17/21 Unknown History Mirtazapine 30 mg [Remeron 30 30 mg PO QHS 09/17/21 09/17/21 Unknown History mg] Omeprazole 20 mg PO DAILY 09/17/21 09/17/21 Unknown History Oxycodone HCl 10 mg PO BIDPRN PRN 09/17/21 09/17/21 Unknown History Paroxetine HCl 20 mg [Paxil 20 20 mg PO DAILY 09/17/21 09/17/21 Unknown History MG] Prednisone 20 mg [Deltasone 20 20 mg PO BID 09/17/21 09/17/21 Unknown History mg] Tiotropium [place] Inhaler 1 puff IH DAILY 09/17/21 09/17/21 Unknown History [Spiriva 18 Mcg/Cap Inhaler] Current Medications Discontinued Medications Generic Name Dose Route Start Last Admin Trade Name Freq PRN Reason Stop Dose Admin Acetaminophen 650 mg 09/17/21 05:50 Acetaminophen 325 Mg Tablet PO 10/17/21 05:49 Q4H PRN PRN PAIN, FEVER, HEADACHE Carvedilol 3.125 mg 09/17/21 14:00 09/19/21 10:01 Carvedilol 3.125 Mg Tablet PO 10/17/21 13:59 3.125 mg BID ESTRELLITA Administration Fluticasone Propionate 0 gm 09/17/21 14:00 09/19/21 10:00 Fluticasone Propionate 16 Gm Bottle Nasal [place] NS 10/17/21 13:59 1 gm DAILY ESTRELLITA Administration Folic Acid 1 mg 09/17/21 14:00 09/19/21 10:00 Folic Acid 1 Mg Tablet PO 10/17/21 13:59 1 mg DAILY ESTRELLITA Administration Gabapentin 100 mg 09/17/21 14:00 09/19/21 10:00 Gabapentin 100 Mg Capsule PO 10/17/21 13:59 100 mg BID ESTRELLITA Administration Hydralazine HCl 10 mg 09/18/21 22:45 Hydralazine Hcl 20 Mg/Ml Vial IV 10/18/21 22:44 Q6H PRN PRN for SBP > 180 Sodium Chloride 1,000 mls @ 100 mls/hr 09/17/21 01:45 09/17/21 01:47 Sodium Chloride 0.9% 1000 Ml IV 10/17/21 01:44 100 mls/hr .Q10H ESTRELLITA Administration Sodium Chloride Confirm 09/17/21 01:46 Sodium Chloride 0.9% 1000 Ml Administered 09/17/21 01:47 Dose 1,000 mls @ ud .ROUTE .STK-MED ONE Sodium Chloride 1,000 mls @ 50 mls/hr 09/17/21 05:50 09/18/21 17:53 Sodium Chloride 0.9% 1000 Ml IV 10/17/21 05:49 50 mls/hr .Q20H ESTRELLITA Administration Mirtazapine 30 mg 09/17/21 22:00 09/18/21 21:45 Mirtazapine 30 Mg Tablet PO 10/17/21 21:59 30 mg QHS ESTRELLITA Administration Miscellaneous Information 1 each 09/17/21 14:00 Medication Intervention 1 Each Each PO 10/17/21 13:59 .RN TO CHECK ON ESTRELLITA Ondansetron HCl 4 mg 09/17/21 05:50 Ondansetron Hcl 4 Mg/2 Ml Vial IV 10/17/21 05:49 Q6H PRN PRN NAUSEA/VOMITING Oxycodone HCl 10 mg 09/17/21 13:25 Oxycodone Hcl 5 Mg Ir Tab PO 09/22/21 13:24 BIDPRN PRN PAIN Pantoprazole Sodium 40 mg 09/17/21 14:00 09/19/21 10:02 Protonix (Pantoprazole) 40 Mg Tablet PO 10/17/21 13:59 40 mg DAILY ESTRELLITA Administration Paroxetine HCl 20 mg 09/17/21 14:00 09/19/21 10:01 Paroxetine Hcl 20 Mg Tablet PO 10/17/21 13:59 20 mg DAILY ESTRELLITA Administration Prednisone 20 mg 09/17/21 14:00 09/19/21 10:01 Prednisone 20 Mg Tablet PO 10/17/21 13:59 20 mg BID ESTRELLITA Administration Fluticasone/Salmeterol 2 puff 09/17/21 07:00 09/19/21 07:27 Fluticasone/Salmeterol - 120 Puff Common Canister 10/17/21 06:59 2 puff BIDRT ESTRELLITA Administration Simvastatin 20 mg 09/17/21 14:00 09/19/21 10:00 Simvastatin 20 Mg Tablet PO 10/17/21 13:59 20 mg DAILY ESTRELLITA Administration Tiotropium [place] 1 ea 09/17/21 10:00 09/19/21 07:27 Tiotropium [place] 18 Mcg/Cap Inhaler IH 10/17/21 09:59 1 ea DAILY ESTRELLITA Administration Intake & Output (Last 24 hours) 09/18/21 09/19/21 09/20/21 09/21/21 11:59 11:59 11:59 11:59 Intake Total 1960 1625 Output Total 1800 800 Balance 160 825 Weight 44.5 kg 45 kg - Vitals & Intake/Output Vital Signs: Vital Signs Temperature 97.7 F 09/19/21 07:00 Pulse Rate 84 09/19/21 07:00 Respiratory Rate 18 09/19/21 07:00 Blood Pressure 158/101 09/19/21 07:00 O2 Sat by Pulse Oximetry 93 L 09/19/21 07:00 Intake & Output: Intake & Output 09/18/21 09/19/21 09/20/21 09/21/21 11:59 11:59 11:59 11:59 Intake Total 1960 1625 Output Total 1800 800 Balance 160 825 Weight 44.5 kg 45 kg - Lab Result Diagrams: 09/19/21 05:00 09/19/21 05:00 Micro Results-Entire Visit: Microbiology 09/17/21 03:36 Urine Culture - Final Urine, Void Enterobacter Clocae Complex - Procedures and Test Procedures and Tests throughout Hospitalization: Therapy Orders & Screens 09/18/21 07:00 Respiratory Therapy Assessment DAILY Comment: Diagnosis: Altered Mental Status Discharge Exam General Appearance: no apparent distress, alert Neurologic Exam: alert, oriented x 3, cooperative, normal mood/affect, nml cerebellar function, sensation nml, No motor deficits Eye Exam: PERRL, EOMI, eyes nml inspection Ears, Nose, Throat Exam: normal ENT inspection, pharynx normal, moist mucous membranes Neck Exam: normal inspection, non-tender, supple, full range of motion Respiratory Exam: normal breath sounds, lungs clear, No respiratory distress Cardiovascular Exam: regular rate/rhythm, normal heart sounds Gastrointestinal/Abdomen Exam: soft, No tenderness, No mass Pelvic Exam: deferred Rectal Exam: deferred Back Exam: normal inspection, normal range of motion, No CVA tenderness, No vertebral tenderness Extremity Exam: normal inspection, normal range of motion Skin Exam: normal color, warm, dry Final Diagnosis/Problem List - Final Discharge Diagnosis/Problem (1) Altered mental status Status: Acute Code(s): R41.82 - ALTERED MENTAL STATUS, UNSPECIFIED (2) Thrombocytopenia Status: Acute (3) Vasogenic brain edema Status: Acute Code(s): G93.6 - CEREBRAL EDEMA - Discharge Discharge Date: 09/19/21 Disposition: Home, Self-Care Condition: Stable Prescriptions: Continue Paroxetine HCl 20 mg [Paxil 20 MG] 20 mg PO DAILY Folic Acid 1 mg [Folate 1 mg] 1 mg PO DAILY Carvedilol 3.125 mg [Coreg 3.125 MG] 3.125 mg PO BID Tiotropium [place] Inhaler [Spiriva 18 Mcg/Cap Inhaler] 1 puff IH DAILY Oxycodone HCl 10 mg PO BIDPRN PRN PRN Reason: Pain Omeprazole 20 mg PO DAILY Mirtazapine 30 mg [Remeron 30 mg] 30 mg PO QHS Gabapentin 100 mg [Neurontin 100 MG] 100 mg PO BID Fluticasone/Salmeterol 45/21 [Advair Hfa 45-21 Mcg Inhaler] 2 puff IH BID Fluticasone Propionate [Flonase NASAL] 1 spray NS DAILY Atorvastatin Calcium [Lipitor 20MG Tablet] 20 mg PO DAILY Prednisone 20 mg [Deltasone 20 mg] 20 mg PO BID Leflunomide 20 mg PO DAILY Instructions: Altered Mental Status (DC) Additional Instructions: Follow-up with Dr. Aguilar no later than Monday. Follow up with: MARVIN AGUILAR MD [Primary Care Provider] - Forms: Discharge Instructions
== END 2021-09-19 11:08 | disposition home or self-care (01) ==
LOC: ED 01:23 → MED SURG 05:45 → INTOOBSV 05:45
PROVIDERS: ADMIT General Practice; ATTEND General Practice
DX: R41.82 Altered mental status, unspecified (principal); D69.6 Thrombocytopenia, unspecified; G93.6 Cerebral edema; E03.9 Hypothyroidism, unspecified; M19.90 Unspecified osteoarthritis, unspecified site; I25.10 Atherosclerotic heart disease of native coronary artery without angina pectoris; I25.2 Old myocardial infarction; J44.9 Chronic obstructive pulmonary disease, unspecified; R53.1 Weakness; Z79.899 Other long term (current) drug therapy; Z20.828 Contact with and (suspected) exposure to other viral communicable diseases
CPT/HCPCS: 36000; 36415; 36430; 70450; 70551; 80048; 80053; 80307; 81001; 82140; 84436; 84443; 85025; 86850; 86900; 86901; 87077; 87086; 87186; 93005; 93041; 94640; 94760; 99285; 99291; G0378; G0480; P9073; U0003; A9270-GY

== ENCOUNTER 2021-11-20 10:53 | Inpatient (IN) | payer MEDICARE ==
[2021-11-20] MEDS ORDERED: DUONEB 0.5-3 MG/3 ml Neb IH ONE ×2 (11:21→11:26)
[2021-11-20] MEDS ORDERED: solu-MEDROL 125 MG, Sterile H2O 10 ml 2 ML IV ONE ×2 (11:21)
[2021-11-20] MEDS ORDERED: solu-MEDROL ONE (11:26)
--- NOTE | 2021-11-20 11:29 | ERPHSYRPT ---
- History of Present Illness Time Seen by Provider: 11/20/21 10:59 Source: patient Exam Limitations: no limitations Patient Subjective Stated Complaint: SOB Triage Nursing Assessment: Patient brought back to ED via w/c and transferred to bed per self. Patient A+O X3. Patient's skin pink, warm and dry. Patient complains of increased SOB that started today. Patient is currently on home O2 at 2 liters per N/C but increased herself to 4 liters today. Initial O2 sat 85% on 4 liters per N/C; O2 increased to 5 liters with o2 sat 86%. Patient placed on non rebreather at 15 liters with sat coming to 94%. Patient's lungs noted to have rhonchi and wheezing throughout. Patient's work of breathing labored. Patient denies pain or discomfort. Physician History: 66 years old female with history of chronic respiratory failure from COPD on 2 L oxygen normally presented in the ER with increasing shortness of breath for the last couple of days which got worse this morning and she increased her oxygen to 4 L with no relief. Also reports cough productive of yellow-green sputum with rattling in the chest. Denies any chest pain. Reports recent admission to [facility] for pneumonia. Patient oxygen saturation is 85% on 4 L on presentation, placed on nonrebreather followed by BiPAP and feeling much better. Timing/Duration: day(s) (2), constant, gradual onset, worse Severity of Dyspnea-Max: severe Severity of Dyspnea-Current: severe Modifying Factors: Improves With: oxygen. Worsens With: coughing Associated Symptoms: chest pain/discomfort, productive cough, tightness Allergies/Adverse Reactions: Penicillins Allergy (Intermediate, Verified 11/20/21 11:06) Sulfa (Sulfonamide Antibiotics) Allergy (Intermediate, Verified 11/20/21 11:06) Home Medications: Atorvastatin Calcium [Lipitor 20MG Tablet] 20 mg PO DAILY 09/17/21 [History] Carvedilol 3.125 mg [Coreg 3.125 MG] 3.125 mg PO BID 09/17/21 [History] Fluticasone Propionate [Flonase NASAL] 1 spray NS DAILY 09/17/21 [History] Fluticasone/Salmeterol 45/21 [Advair Hfa 45-21 Mcg Inhaler] 2 puff IH BID 09/17/21 [History] Folic Acid 1 mg [Folate 1 mg] 1 mg PO DAILY 09/17/21 [History] Gabapentin 100 mg [Neurontin 100 MG] 100 mg PO BID 09/17/21 [History] Leflunomide 20 mg PO DAILY 09/17/21 [History] Mirtazapine 30 mg [Remeron 30 mg] 30 mg PO QHS 09/17/21 [History] Omeprazole 20 mg PO DAILY 09/17/21 [History] Oxycodone HCl 10 mg PO BIDPRN PRN 09/17/21 [History] Paroxetine HCl 20 mg [Paxil 20 MG] 20 mg PO DAILY 09/17/21 [History] Prednisone 20 mg [Deltasone 20 mg] 20 mg PO BID 09/17/21 [History] Tiotropium [place] Inhaler [Spiriva 18 Mcg/Cap Inhaler] 1 puff IH DAILY 09/17/21 [History] Hx Tetanus, Diphtheria Vaccination/Date Given: No (unsure) Hx Influenza Vaccination/Date Given: No Hx Pneumococcal Vaccination/Date Given: No Immunizations Up to Date: Yes Travel Risk - International Travel Have you traveled outside of the country in past 3 weeks: No - Coronavirus Screening Are you exhibiting any of the following symptoms?: No Close contact with a COVID-19 positive Pt in past 14-21 Days: No - Vaccine Status Have you recieved a Covid-19 vaccination: Yes Coupon Clerk: Moderna - Vaccination Dates Date of 2cond Vaccination (if applicable): Unknown - Review of Systems Constitutional: No Symptoms Eyes: No Symptoms Ears, Nose, & Throat: No Symptoms Respiratory: Cough, Dyspnea, Dyspnea on Exertion ([place]), Wheezing Cardiac: No Symptoms Abdominal/Gastrointestinal: No Symptoms Genitourinary Symptoms: No Symptoms Musculoskeletal: No Symptoms Skin: No Symptoms Neurological: No Symptoms Psychological: No Symptoms Endocrine: No Symptoms Hematologic/Lymphatic: No Symptoms Immunological/Allergic: No Symptoms - Past Medical History Pertinent Past Medical History: Yes Neurological History: Stroke Cardiac History: Coronary Artery Disease, Myocardial Infarction ([place]) Respiratory History: COPD Musculoskeletal History: Rheumatoid Arthritis Other Medical History: Patient is not the best historian - Past Surgical History Past Surgical History: Yes Musculoskeletal: Orthopedic Surgery Other Surgical History: hx of bilat shoulder surgery. pt poor historian at this time. hx obtained from pt's son over the phone. - Social History Smoking Status: Former smoker How long have you smoked: years Exposure to second hand smoke: Yes (Son) Drug Use: none Patient Lives Alone: No - Nursing Vital Signs Nursing Vital Signs: Initial Vital Signs Temperature 98.4 F 11/20/21 11:07 Pulse Rate 68 11/20/21 11:07 Respiratory Rate 30 H 11/20/21 11:07 Blood Pressure 95/69 11/20/21 11:07 O2 Sat by Pulse Oximetry 85 L 11/20/21 11:07 Pain Scale Pain Intensity 0 - Physical Exam General Appearance: no apparent distress, alert, anxiety Eye Exam: PERRL/EOMI, eyes nml inspection Ears, Nose, Throat Exam: hearing grossly normal, nasal congestion, pharyngeal erythema Neck Exam: normal inspection, non-tender, supple, full range of motion Respiratory Exam: respiratory distress, diminished breath sounds, crackles/rales, rhonchi, wheezing Cardiovascular/Chest Exam: normal heart sounds, regular rate/rhythm Abdominal/Gastrointestinal Exam: soft Extremity Exam: non-tender, normal range of motion Neurologic Exam: alert, oriented x 3, cooperative, alterations tailor II-XII nml as tested Skin Exam: normal color SpO2 Interpretation: hypoxic, O2 applied SpO2: 85 O2 Delivery: BiPap/CPAP - Course EKG Interpreted by Me: RATE (110), Sinus Tach, NORMAL AXIS, NORMAL INTERVALS, Non-specific ST Changes Ordered Tests: Active Orders 24 hr Category Date Time Status Electric Lineman STAT Care 11/20/21 11:22 Active EKG-ER Only STAT Care 11/20/21 11:21 Active Michael [Catheter-[place] Michael] STAT Care 11/20/21 12:07 Active IV Insertion STAT Care 11/20/21 11:21 Active CHEST 1 VIEW (PORTABLE) Stat Exams 11/20/21 11:22 Taken ARTERIAL BLOOD GASES Stat Lab 11/20/21 11:43 Completed BLOOD CULTURE Stat Lab 11/20/21 11:44 Received CBC W DIFF Stat Lab 11/20/21 11:25 Completed CMP Stat Lab 11/20/21 11:25 Completed Lactic Acid Stat Lab 11/20/21 11:43 Completed MAGNESIUM Stat Lab 11/20/21 11:25 Completed Manual Differential NC Stat Lab 11/20/21 11:25 Completed NT PRO BNP Stat Lab 11/20/21 11:25 Completed TROPONIN Q3H Lab 11/20/21 11:25 Completed TROPONIN Q3H Lab 11/20/21 14:30 Ordered TROPONIN Q3H Lab 11/20/21 17:30 Ordered TROPONIN Q3H Lab 11/20/21 20:30 Ordered TROPONIN Q3H Lab 11/20/21 23:30 Ordered UA W/RFX UR CULTURE Stat Lab 11/20/21 11:43 Ordered Medication Summary Generic Name Dose Route Start Last Admin Trade Name Freq PRN Reason Stop Dose Admin Sodium Chloride 1,000 mls @ 100 mls/hr 11/20/21 12:45 11/20/21 13:12 Sodium Chloride 0.9% 1000 Ml IV 12/20/21 12:44 500 mls/hr .Q10H ESTRELLITA Infusion Discontinued Medications Generic Name Dose Route Start Last Admin Trade Name Freq PRN Reason Stop Dose Admin Albuterol/Ipratropium 3 ml 11/20/21 11:21 11/20/21 11:37 Ipratropium/Albuterol Sulfate 3 Ml Ampul.Neb IH 11/20/21 11:22 3 ml STAT ONE Administration Albuterol/Ipratropium Confirm 11/20/21 11:26 Ipratropium/Albuterol Sulfate 3 Ml Ampul.Neb Administered 11/20/21 11:27 Dose 3 ml IH .STK-MED ONE Methylprednisolone Sodium 0 mg 11/20/21 11:21 11/20/21 11:27 Succinate 125 mg/ Sterile IV 11/20/21 11:22 125 mg Water 2 ml STAT ONE Administration Levofloxacin/Dextrose 500 mg in 100 mls @ 100 mls/hr 11/20/21 12:16 11/20/21 12:34 Levofloxacin 500mg/100ml D5w IV 11/20/21 13:15 100 mls/hr STAT STA 100 mls/hr Administration Levofloxacin/Dextrose Confirm 11/20/21 12:32 Levofloxacin 500mg/100ml D5w Administered 11/20/21 12:33 Dose 500 mg in 100 mls @ ud IV .STK-MED ONE Methylprednisolone Sodium Succinate Confirm 11/20/21 11:26 Methylprednis Sod Succ 125 Mg/2 Ml Vial Administered 11/20/21 11:27 Dose 125 mg .ROUTE .STK-MED ONE Lab/Rad Data: Laboratory Result Diagrams 11/20/21 11:25 11/20/21 11:25 Laboratory Results 11/20/21 11/20/21 11/20/21 Range/Units 11:43 11:25 11:25 WBC (4.0-10.5) K/mm3 RBC (4.1-5.4) M/mm3 Hgb (12.0-16.0) gm/dl Hct (35-47) % MCV (78-100) fl MCH (26-32) pg MCHC (32-36) g/dl RDW (11.5-14.0) % Plt Count (150-450) K/mm3 MPV (7.5-11.0) fl Puncture Site LEFT BRACHIAL pCO2 41 (35-45) mmHg pO2 88 (75-100) mmHg Base Excess 5.6 H (-2.0-2.0) O2 Saturation 95.3 (94-100) g/dF ABG pH 7.47 H (7.35-7.45) ABG HCO3 29.8 H* (22-28) ABG O2 Sat (Measured) 97.8 (95-100) % Arsenio Test NOT APPLICABLE A-a Gradient 574 a/A Ratio 0.13 Hemoglobin 13.6 Carboxyhemoglobin 1.6 (0.0-6.9) % THgb Methemoglobin 1.0 L (1.4-1.5) % Temperature 37.0 C POC O2 Flow Rate 100 % Sodium 131 L (137-145) mmol/L Potassium 4.6 4.9 (3.5-5.1) mmol/L Chloride 92 L (98-107) mmol/L Carbon Dioxide 30 (22-30) mmol/L Anion Gap 13.9 (5-15) MEQ/L BUN 54 H (7-17) mg/dL Creatinine 2.28 H (0.52-1.04) mg/dL Estimated GFR 22.8 ML/MIN Glucose 102 (74-106) mg/dL Lactic Acid 2.0 (0.4-2.0) Calcium 8.3 L (8.4-10.2) mg/dL Magnesium 1.7 (1.6-2.3) mg/dL Total Bilirubin 1.40 H (0.2-1.3) mg/dL AST 36 (14-36) U/L ALT 19 (0-35) U/L Alkaline Phosphatase 73 (38-126) U/L Troponin I 0.483 H* (0.000-0.034) ng/mL NT-Pro-B Natriuret Pep 5700 H (0-900) pg/mL Serum Total Protein 5.8 L (6.3-8.2) g/dL Albumin 3.0 L (3.5-5.0) g/dL 11/20/21 Range/Units 11:25 WBC 6.9 (4.0-10.5) K/mm3 RBC 3.90 L (4.1-5.4) M/mm3 Hgb 13.2 (12.0-16.0) gm/dl Hct 40.3 (35-47) % MCV 103.3 H (78-100) fl MCH 33.8 H (26-32) pg MCHC 32.8 (32-36) g/dl RDW 16.7 H (11.5-14.0) % Plt Count 39 L (150-450) K/mm3 MPV 10.7 (7.5-11.0) fl Puncture Site pCO2 (35-45) mmHg pO2 (75-100) mmHg Base Excess (-2.0-2.0) O2 Saturation (94-100) g/dF ABG pH (7.35-7.45) ABG HCO3 (22-28) ABG O2 Sat (Measured) (95-100) % Arsenio Test A-a Gradient a/A Ratio Hemoglobin Carboxyhemoglobin (0.0-6.9) % THgb Methemoglobin (1.4-1.5) % Temperature C POC O2 Flow Rate % Sodium (137-145) mmol/L Potassium (3.5-5.1) mmol/L Chloride (98-107) mmol/L Carbon Dioxide (22-30) mmol/L Anion Gap (5-15) MEQ/L BUN (7-17) mg/dL Creatinine (0.52-1.04) mg/dL Estimated GFR ML/MIN Glucose (74-106) mg/dL Lactic Acid (0.4-2.0) Calcium (8.4-10.2) mg/dL Magnesium (1.6-2.3) mg/dL Total Bilirubin (0.2-1.3) mg/dL AST (14-36) U/L ALT (0-35) U/L Alkaline Phosphatase (38-126) U/L Troponin I (0.000-0.034) ng/mL NT-Pro-B Natriuret Pep (0-900) pg/mL Serum Total Protein (6.3-8.2) g/dL Albumin (3.5-5.0) g/dL - Progress Progress: improved Air Movement: fair Progress Note: 11/20/21 13:33 66 years old is evaluated for increasing shortness of breath despite being on 4 L. Patient was hypoxic, placed on nonrebreather followed by BiPAP and feeling better. She is given Solu-Medrol and DuoNeb as well. Work-up showed normal white count and low platelets in the 30s which she has been running like this for last few months. Patient has acute renal failure with baseline creatinine of 1 and today 2.28 with BUN of 54. EKG showed sinus tach without any obvious acute ST elevations but has a troponin of 0.4 with no chest pain. On reevaluation patient is feeling much better. Elevated troponin probably from worsening renal function versus respiratory failure versus cardiac. Patient's platelets are low and will hold off aspirin for now. Chest x-ray showed infiltrative process on the right side and started on Levaquin. After placing on BiPAP patient blood pressure is in the 70s and 60s systolic, placed on 6 L O xymizer and pressure currently in the 90s. We will give her a small bolus of fluid and gentle hydration. I have discussed with patient about CODE STATUS and she does not want CPR/intubation and wants to be DNR, paperwork was signed. I have discussed with Dr. Schwartz, reviewed history/work-up, current management and agreed with admission. Blood Culture(s) Obtained: Yes Antibiotics given: Yes Discussed with : Peggy Will see patient in: hospital (full admit) Counseled pt/family regarding: drug and/or alcohol abuse, lab results, diagnosis - Departure Departure Disposition: In-patient Admission Clinical Impression: Thrombocytopenia, Elevated troponin Acute on chronic respiratory failure Qualifiers: Respiratory failure complication: hypoxia Qualified Code(s): J96.21 - Acute and chronic respiratory failure with hypoxia Acute renal failure Qualifiers: Acute renal failure type: unspecified Qualified Code(s): N17.9 - Acute kidney failure, unspecified Condition: Fair Critical Care Time: Yes Critical Care Time(excluding separately billable procedures): Critical 30-74 mins Referrals: MARVIN AGUILAR MD [Primary Care Provider] - Follow up/PCP as directed
[2021-11-20 11:48] LABS: A-aADO2 574; ABG HEMOGLOBIN 13.6; ABG POTASSIUM 4.6 (3.5-5.1); ABG SITE LEFT BRACHIAL; ARTERIAL BLD GAS O2 SATURATION 97.8 % (95-100); ARTERIAL BLOOD GAS BASE EXCESS 5.6 (-2.0-2.0); ARTERIAL BLOOD GAS FIO2 100 %; ARTERIAL BLOOD GAS PCO2 41 mmHg (35-45); ARTERIAL BLOOD GAS PO2 88 mmHg (75-100); ARTERIAL BLOOD GAS pH 7.47 (7.35-7.45); CARBOXYHEMOGLOBIN 1.6 % THgb (0.0-6.9); HCO3- 29.8 (22-28); HGB O2 SAT 95.3 g/dF (94-100)
[2021-11-20 11:54] LABS: Hematocrit 40.3 % (35-47); Hemoglobin 13.2 gm/dl (12.0-16.0); Mean Cell Volume 103.3 fl (78-100); Mean Corpuscular Hemoglobin 33.8 pg (26-32); Mean Corpuscular Hgb Concent. 32.8 g/dl (32-36); Mean Platelet Volume 10.7 fl (7.5-11.0); Platelet Count 39 K/mm3 (150-450); Red Cell Distribution Width 16.7 % (11.5-14.0); White Blood Count 6.9 K/mm3 (4.0-10.5)
[2021-11-20 12:11] LABS: ANION GAP 13.9 MEQ/L (5-15); BILIRUBIN,TOTAL 1.4 mg/dL (0.2-1.3); Calcium 8.3 mg/dL (8.4-10.2); Creatinine 1 2.28 mg/dL (0.52-1.04); EST GLOMERULAR FILTRATION RATE 22.8 ML/MIN; MAGNESIUM 1.7 mg/dL (1.6-2.3); Potassium 4.9 mmol/L (3.5-5.1); Total Protein 5.8 g/dL (6.3-8.2)
[2021-11-20] MEDS ORDERED: Levofloxacin 500MG/100ML D5W 500 MG/100 ML BAG IV STA (12:16)
[2021-11-20] MEDS ORDERED: Levofloxacin 500MG/100ML D5W 500 MG/100 ML BAG IV ONE (12:32)
[2021-11-20] MEDS ORDERED: Sodium Chloride 0.9% 1000 ML 1,000 ML IV SCH (12:45)
[2021-11-20] MEDS ORDERED: Sodium Chloride 0.9% 1000 ML 1,000 ML ONE (13:10)
[2021-11-20 14:25] LABS: INFLUENZA A NEGATIVE (NEGATIVE); INFLUENZA B NEGATIVE (NEGATIVE); RESPIRATORY SYNCTIAL VIRUS NEGATIVE (Negative); SARS-CoV-2 Xpert Express NEGATIVE (NEGATIVE)
[2021-11-20] MEDS ORDERED: Sodium Chloride 0.9% 500 ML 500 ML IV ONE ×2 (14:43→14:45)
[2021-11-20 15:23] LABS: Appearance SLIGHTLY CLOUDY (CLEAR); Bilirubin NEGATIVE (NEGATIVE); Blood MODERATE Ery/ul (0-5); Epithelial Cells RARE /HPF (FEW); Glucose NEGATIVE (NEGATIVE); Ketones NEGATIVE (NEGATIVE); Leukocyte Esterase TRACE (NEGATIVE); Mucus SLIGHT /HPF (NEGATIVE); Nitrite NEGATIVE (NEGATIVE); Non-Squamous Epithelial Cells RARE /HPF (FEW); Protein,Urine Dip 100 (Negative); RBC 26-50 /HPF (0-2); Urobilinogen 4 mg/dL (0-1)
[2021-11-20] MEDS: DUONEB 0.5-3 MG/3 ml Neb IH SCH ×2 (15:55→20:24)
[2021-11-20 16:05] LABS: BAND 34 % (0.0-2.0); Lymphocytes 6 % (24-44); Monocyte 4 % (0.0-12.0); Neutrophils 56 % (36.0-66.0); Platelet Estimate DECREASED (NORMAL); Total Cells Counted 100
[2021-11-20] MEDS: CARDIZEM DRIP 100 MG/100 ML D5W 100 ML IV PRN (16:34)
[2021-11-20] MEDS: Sodium Chloride 0.9% 1000 ML 1,000 ML IV SCH (16:34)
[2021-11-20] MEDS ORDERED: Flonase NASAL NS PRN (16:42)
[2021-11-20] MEDS ORDERED: MEDICATION INTERVENTION MC SCH (17:00)
[2021-11-20] MEDS ORDERED: solu-MEDROL 60 MG, Sterile H2O 10 ml 2 ML IV SCH ×2 (18:00)
[2021-11-20] MEDS: solu-MEDROL IV SCH (18:09)
--- NOTE | 2021-11-20 19:30 | XRAY ---
Indication: Short of breath. Comparison: December 13, 2019. Portable chest again hyperinflated with new right mid to lower lung consolidating airspace disease with tiny effusion. Stable left base calcified granuloma. Heart not enlarged. Bony thorax again demonstrates osteopenia, dextroscoliosis, and degenerative changes with interval bilateral shoulder arthroplasty.
[2021-11-20] MEDS: Advair Hfa 115/21 Common canister IH SCH (20:26)
[2021-11-20] MEDS: REMERON 30 MG PO SCH (21:05)
[2021-11-20] MEDS: Neurontin 100 MG PO SCH (21:05)
[2021-11-20] MEDS ORDERED: DELTASONE 20 MG PO SCH (22:00)
[2021-11-21] MEDS: CARDIZEM DRIP 100 MG/100 ML D5W 100 ML IV PRN ×3 (00:24→12:55)
[2021-11-21] MEDS: solu-MEDROL IV SCH ×4 (00:38→18:11)
[2021-11-21] MEDS: Advair Hfa 115/21 Common canister IH SCH ×2 (06:55→19:46)
[2021-11-21] MEDS: DUONEB 0.5-3 MG/3 ml Neb IH SCH ×4 (06:55→19:24)
[2021-11-21 07:43] LABS: ALBUMIN 2.4 g/dL (3.5-5.0); ANION GAP 8.2 MEQ/L (5-15); BILIRUBIN,TOTAL 1.1 mg/dL (0.2-1.3); Calcium 7.5 mg/dL (8.4-10.2); Creatinine 1 1.5 mg/dL (0.52-1.04); EST GLOMERULAR FILTRATION RATE 36.9 ML/MIN; Total Protein 5.3 g/dL (6.3-8.2)
[2021-11-21] MEDS ORDERED: PHARMACY DOSING REQUIRED: VANCOMYCIN IV STA (08:56)
[2021-11-21] MEDS ORDERED: PHARMACY DOSING REQUEST MC ONE (08:57)
[2021-11-21 09:22] LABS: Hematocrit 36.5 % (35-47); Hemoglobin 12.1 gm/dl (12.0-16.0); Mean Cell Volume 103.4 fl (78-100); Mean Corpuscular Hemoglobin 34.3 pg (26-32); Mean Corpuscular Hgb Concent. 33.2 g/dl (32-36); Mean Platelet Volume 12.3 fl (7.5-11.0); Red Blood Count 3.53 M/mm3 (4.1-5.4); Red Cell Distribution Width 16.8 % (11.5-14.0); White Blood Count 6.3 K/mm3 (4.0-10.5)
[2021-11-21 09:26] LABS: Platelet Count 8 K/mm3 (150-450)
[2021-11-21] MEDS ORDERED: NON-FORMULARY ITEM (Leflunomide [Leflunomide] 20 MG Tablet) PO SCH (10:00)
[2021-11-21] MEDS ORDERED: NON-FORMULARY ITEM (Atorvastatin Calcium 20 MG Tab) PO SCH (10:00)
[2021-11-21] MEDS ORDERED: NON-FORMULARY ITEM (Omeprazole [Omeprazole] 20 MG Capsule.Dr) PO SCH (10:00)
[2021-11-21] MEDS ORDERED: Levofloxacin 500MG/100ML D5W 500 MG/100 ML BAG IV SCH (10:00)
[2021-11-21] MEDS ORDERED: Spiriva 18 Mcg/Cap Inhaler IH SCH (10:00)
[2021-11-21] MEDS: PROTONIX 40 MG IV IV SCH (11:07)
[2021-11-21] MEDS: Paxil 20 MG PO SCH (11:10)
[2021-11-21] MEDS: ZOCOR 20MG PO SCH (11:10)
[2021-11-21] MEDS: Levofloxacin 250MG Tablet PO SCH (11:10)
[2021-11-21] MEDS: Cardizem CD 180 MG PO SCH (11:10)
[2021-11-21] MEDS: FOLATE 1 MG PO SCH (11:10)
[2021-11-21] MEDS: Neurontin 100 MG PO SCH ×2 (11:11→22:36)
[2021-11-21] MEDS: VANCOCIN 500 MG VIAL*** 500 MG in Sodium Chloride 100ML MINI-BAG PLUS 100 ML IV SCH (11:15)
[2021-11-21 13:48] LABS: BAND 20 % (0.0-2.0); Lymphocytes 5 % (24-44); Monocyte 2 % (0.0-12.0); Neutrophils 73 % (36.0-66.0); Platelet Estimate DECREASED (NORMAL); Total Cells Counted 100
[2021-11-21] MEDS: REMERON 30 MG PO SCH (22:37)
[2021-11-22] MEDS: solu-MEDROL IV SCH ×5 (00:01→23:47)
[2021-11-22 05:31] LABS: Hemoglobin 10.9 gm/dl (12.0-16.0); Mean Cell Volume 103.1 fl (78-100); Mean Corpuscular Hemoglobin 34.1 pg (26-32); Red Cell Distribution Width 16.8 % (11.5-14.0); White Blood Count 6.8 K/mm3 (4.0-10.5)
[2021-11-22 05:45] LABS: ALBUMIN 2.2 g/dL (3.5-5.0); ANION GAP 9.6 MEQ/L (5-15); BILIRUBIN,TOTAL 0.8 mg/dL (0.2-1.3); Calcium 7.9 mg/dL (8.4-10.2); Creatinine 1 1.34 mg/dL (0.52-1.04); EST GLOMERULAR FILTRATION RATE 42.1 ML/MIN; Potassium 3.9 mmol/L (3.5-5.1); Total Protein 4.7 g/dL (6.3-8.2)
[2021-11-22 06:08] LABS: Platelet Count 1 K/mm3 (150-450)
[2021-11-22] MEDS: DUONEB 0.5-3 MG/3 ml Neb IH SCH ×4 (07:15→19:09)
[2021-11-22] MEDS: Advair Hfa 115/21 Common canister IH SCH ×2 (07:21→19:09)
[2021-11-22] MEDS: ZOCOR 20MG PO SCH (09:29)
[2021-11-22] MEDS: Cardizem CD 180 MG PO SCH (09:29)
[2021-11-22] MEDS: FOLATE 1 MG PO SCH (09:29)
[2021-11-22] MEDS: Paxil 20 MG PO SCH (09:29)
[2021-11-22] MEDS: Levofloxacin 250MG Tablet PO SCH (09:29)
[2021-11-22] MEDS: Neurontin 100 MG PO SCH ×2 (09:29→21:26)
[2021-11-22] MEDS: PROTONIX 40 MG IV IV SCH (09:30)
[2021-11-22] MEDS: VANCOCIN 500 MG VIAL*** 500 MG in Sodium Chloride 100ML MINI-BAG PLUS 100 ML IV SCH (09:46)
[2021-11-22 09:53] LABS: ANISOCYTOSIS 1+; BAND 4 % (0.0-2.0); Lymphocytes 5 % (24-44); Monocyte 3 % (0.0-12.0); Neutrophils 88 % (36.0-66.0); Platelet Estimate DECREASED (NORMAL); Total Cells Counted 100; Toxic Granulation 1+
[2021-11-22] MEDS ORDERED: Levaquin 250MG/50ML D5W 250 MG/50 ML BAG IV SCH (10:00)
[2021-11-22] MEDS: TYLENOL 325 MG PO PRN (13:59)
[2021-11-22] MEDS ORDERED: Cardizem IV 50 MG/10 ML IV ONE (14:12)
[2021-11-22] MEDS: Sodium Chloride 0.9% 1000 ML 1,000 ML IV SCH (14:34)
[2021-11-22 15:32] LABS: ABO TYPING A
[2021-11-22 15:33] LABS: RH TYPING NEGATIVE
[2021-11-22] MEDS ORDERED: Sodium Chloride 0.9% 500 ML 500 ML IV ONE (16:14)
[2021-11-22] MEDS: CARDIZEM DRIP 100 MG/100 ML D5W 100 ML IV PRN (17:56)
--- NOTE | 2021-11-22 18:23 | PCM.HP ---
History of Present Illness - Chief Complaint Chief Complaint: weakness for 2-3 days History of Present Illness: is a 66 year old female with history of chronic respiratory failure from COPD on 2 L oxygen normally presented in the ER with increasing shortness of breath for the last couple of days which got worse this morning and she increased her oxygen to 4 L with no relief. Also reports cough productive of yellow-green sputum with rattling in the chest. Denies any chest pain. Reports recent admission to [facility] for pneumonia. Patient oxygen saturation is 85% on 4 L on presentation, placed on nonrebreather followed by BiPAP and feeling much better. Timing/Duration: day(s) (2), constant, gradual onset, worse Severity of Dyspnea-Max: severe Severity of Dyspnea-Current: severe Modifying Factors: Improves With: oxygen. Worsens With: coughing Associated Symptoms: chest pain/discomfort, productive cough, tightness - Review of Systems Constitutional: No Fever, No Chills Eyes: No Symptoms Ears, Nose, & Throat: No Symptoms Respiratory: Cough, Orthopnea, Short Of Breath Cardiac: No Chest Pain, No Edema, No Syncope Abdominal/Gastrointestinal: No Abdominal Pain, No Nausea, No Vomiting, No Diarrhea Genitourinary Symptoms: No Dysuria Musculoskeletal: No Back Pain, No Neck Pain Skin: No Rash Neurological: No Dizziness, No Focal Weakness, No Sensory Changes Psychological: No Symptoms Endocrine: No Symptoms Hematologic/Lymphatic: No Symptoms Immunological/Allergic: No Symptoms Medications & Allergies Home Medications: Home Medication List Atorvastatin Calcium [Lipitor 20MG Tablet] 20 mg PO DAILY 09/17/21 [History Confirmed 11/20/21] Carvedilol 3.125 mg [Coreg 3.125 MG] 3.125 mg PO BID 09/17/21 [History Confirmed 11/20/21] Fluticasone Propionate [Flonase NASAL] 1 spray NS DAILY PRN PRN 09/17/21 [History Confirmed 11/20/21] Fluticasone/Salmeterol 45/21 [Advair Hfa 45-21 Mcg Inhaler] 2 puff IH BID 09/17/21 [History Confirmed 11/20/21] Folic Acid 1 mg [Folate 1 mg] 1 mg PO DAILY 09/17/21 [History Confirmed 11/20/21] Gabapentin 100 mg [Neurontin 100 MG] 100 mg PO BID 09/17/21 [History Confirmed 11/20/21] Leflunomide 20 mg PO DAILY 09/17/21 [History Confirmed 11/20/21] Mirtazapine 30 mg [Remeron 30 mg] 30 mg PO QHS 09/17/21 [History Confirmed 11/20/21] Omeprazole 20 mg PO DAILY 09/17/21 [History Confirmed 11/20/21] Paroxetine HCl 20 mg [Paxil 20 MG] 20 mg PO DAILY 09/17/21 [History Confirmed 11/20/21] Prednisone 20 mg [Deltasone 20 mg] 20 mg PO BID 09/17/21 [History Confirmed 11/20/21] Tiotropium [place] Inhaler [Spiriva 18 Mcg/Cap Inhaler] 1 puff IH DAILY 09/17/21 [History Confirmed 11/20/21] Allergies/Adverse Reactions: Allergies Allergy/AdvReac Type Severity Reaction Status Date / Time Penicillins Allergy Intermediate Verified 11/20/21 11:06 Sulfa (Sulfonamide Allergy Intermediate Verified 11/20/21 11:06 Antibiotics) - Past Medical History Past Medical History: Yes Neurological History: Stroke Cardiac History: Coronary Artery Disease, Myocardial Infarction ([place]) Respiratory History: COPD Musculoskelatal History: Rheumatoid Arthritis GI Medical History: No Pertinent History History: No Pertinent History Pyscho-Social History: Depression Reproductive Disorders: No Pertinent History Comment: Patient is not the best historian - Female History Are you now?: No - Past Surgical History Past Surgical History: Yes Neuro Surgical History: No Pertinent History Cardiac History: No Pertinent History Respiratory Surgery: No Pertinent History GI Surgical History: No Pertinent History Genitourinary Surgical Hx: No Pertinent History Musculskeletal Surgical Hx: Orthopedic Surgery Female Surgical History: No Pertinent History Other Surgical History: hx of bilat shoulder surgery and back surgery. pt poor historian at this time. hx obtained from pt's son over the phone. - Social History Smoking Status: Former smoker How long have you smoked: years Exposure to second hand smoke: Yes (Son) Alcohol: None Drug Use: none - Physical Exam Vital Signs: Vital Signs - 24 hr Temp Pulse Resp BP BP Pulse Ox 11/22/21 18:00 113 H 18 89/60 97 11/22/21 17:56 133 H 21 94/58 11/22/21 16:00 96.8 F 106 H 18 103/61 98 11/22/21 14:34 150 H 21 95 11/22/21 14:00 93 H 96/61 96 11/22/21 12:00 97.2 F 92 H 25 H 96/72 92 L 11/22/21 11:26 98 H 24 90 L 11/22/21 10:00 96 H 24 88/60 97 11/22/21 08:55 80 28 H 99 11/22/21 08:00 97.6 F 86 19 99/62 99 11/22/21 06:36 97.8 F 86 18 94/63 98 11/22/21 05:14 98.2 F 89 16 93/62 97 11/22/21 04:00 98.2 F 101 H 16 94/77 97 11/22/21 02:12 97.4 F 89 16 102/70 96 11/22/21 00:50 97.7 F 84 16 95/50 97 11/21/21 23:51 93 H 11/21/21 23:05 97.8 F 94 H 18 106/66 97 11/21/21 22:00 97.7 F 88 18 87/57 96 11/21/21 21:00 97.6 F 85 18 82/50 96 11/21/21 20:18 97.6 F 88 18 99/38 96 11/21/21 20:00 97.3 F 75 19 88/58 96 11/21/21 19:24 88 16 95 General Appearance: no apparent distress, mild distress, alert Neurologic Exam: alert, oriented x 3, cooperative, normal mood/affect, sensation nml, No motor deficits Eye Exam: PERRL/EOMI, eyes nml inspection Ears, Nose, Throat Exam: normal ENT inspection, TMs normal, pharynx normal, moist mucous membranes Neck Exam: normal inspection, non-tender, supple, full range of motion Respiratory Exam: normal breath sounds, diminished breath sounds, crackles/rales, rhonchi, wheezing, No respiratory distress Cardiovascular Exam: regular rate/rhythm, normal heart sounds, normal peripheral pulses Gastrointestinal/Abdomen Exam: soft, normal bowel sounds, No tenderness, No mass Pelvic Exam: not done Rectal Exam: deferred Back Exam: normal inspection, normal range of motion, No CVA tenderness, No vertebral tenderness Extremity Exam: normal inspection, normal range of motion, pelvis stable Skin Exam: normal color, warm, dry, No rash Lymphatic Exam: No adenopathy Results - Labs Lab/Micro Results: Lab Results-Last 24 Hours 11/21/21 11/22/21 11/22/21 Range/Units 21:09 04:25 04:25 WBC 6.8 (4.0-10.5) K/mm3 RBC 3.20 L (4.1-5.4) M/mm3 Hgb 10.9 L (12.0-16.0) gm/dl Hct 33.0 L (35-47) % MCV 103.1 H (78-100) fl MCH 34.1 H (26-32) pg MCHC 33.0 (32-36) g/dl RDW 16.8 H (11.5-14.0) % Plt Count 1 L* D (150-450) K/mm3 Segmented Neutrophils 88 H (36.0-66.0) % Band Neutrophils 4 H (0.0-2.0) % Lymphocytes (Manual) 5 L (24-44) % Monocytes (Manual) 3 (0.0-12.0) % Toxic Granulation 1+ Platelet Estimate DECREASED (NORMAL) RBC Morphology ABNORMAL Anisocytosis 1+ Sodium (137-145) mmol/L Potassium (3.5-5.1) mmol/L Chloride (98-107) mmol/L Carbon Dioxide (22-30) mmol/L Anion Gap (5-15) MEQ/L BUN (7-17) mg/dL Creatinine (0.52-1.04) mg/dL Estimated GFR ML/MIN Glucose (74-106) mg/dL POC Glucometer 142 H (74 to 106) mg/dL Calcium (8.4-10.2) mg/dL Total Bilirubin (0.2-1.3) mg/dL AST (14-36) U/L ALT (0-35) U/L Alkaline Phosphatase (38-126) U/L Troponin I 0.101 H* (0.000-0.034) ng/mL Serum Total Protein (6.3-8.2) g/dL Albumin (3.5-5.0) g/dL ABO Group Rh Factor 11/22/21 11/22/21 11/22/21 Range/Units 04:25 07:47 09:02 WBC (4.0-10.5) K/mm3 RBC (4.1-5.4) M/mm3 Hgb (12.0-16.0) gm/dl Hct (35-47) % MCV (78-100) fl MCH (26-32) pg MCHC (32-36) g/dl RDW (11.5-14.0) % Plt Count (150-450) K/mm3 Segmented Neutrophils (36.0-66.0) % Band Neutrophils (0.0-2.0) % Lymphocytes (Manual) (24-44) % Monocytes (Manual) (0.0-12.0) % Toxic Granulation Platelet Estimate (NORMAL) RBC Morphology Anisocytosis Sodium 133 L (137-145) mmol/L Potassium 3.9 (3.5-5.1) mmol/L Chloride 103 (98-107) mmol/L Carbon Dioxide 24 (22-30) mmol/L Anion Gap 9.6 (5-15) MEQ/L BUN 46 H (7-17) mg/dL Creatinine 1.34 H (0.52-1.04) mg/dL Estimated GFR 42.1 ML/MIN Glucose 115 H (74-106) mg/dL POC Glucometer 113 H (74 to 106) mg/dL Calcium 7.9 L (8.4-10.2) mg/dL Total Bilirubin 0.80 (0.2-1.3) mg/dL AST 24 (14-36) U/L ALT 14 (0-35) U/L Alkaline Phosphatase 65 (38-126) U/L Troponin I (0.000-0.034) ng/mL Serum Total Protein 4.7 L (6.3-8.2) g/dL Albumin 2.2 L (3.5-5.0) g/dL ABO Group A Rh Factor NEGATIVE 11/22/21 11/22/21 Range/Units 11:28 16:20 WBC (4.0-10.5) K/mm3 RBC (4.1-5.4) M/mm3 Hgb (12.0-16.0) gm/dl Hct (35-47) % MCV (78-100) fl MCH (26-32) pg MCHC (32-36) g/dl RDW (11.5-14.0) % Plt Count (150-450) K/mm3 Segmented Neutrophils (36.0-66.0) % Band Neutrophils (0.0-2.0) % Lymphocytes (Manual) (24-44) % Monocytes (Manual) (0.0-12.0) % Toxic Granulation Platelet Estimate (NORMAL) RBC Morphology Anisocytosis Sodium (137-145) mmol/L Potassium (3.5-5.1) mmol/L Chloride (98-107) mmol/L Carbon Dioxide (22-30) mmol/L Anion Gap (5-15) MEQ/L BUN (7-17) mg/dL Creatinine (0.52-1.04) mg/dL Estimated GFR ML/MIN Glucose (74-106) mg/dL POC Glucometer 103 150 H (74 to 106) mg/dL Calcium (8.4-10.2) mg/dL Total Bilirubin (0.2-1.3) mg/dL AST (14-36) U/L ALT (0-35) U/L Alkaline Phosphatase (38-126) U/L Troponin I (0.000-0.034) ng/mL Serum Total Protein (6.3-8.2) g/dL Albumin (3.5-5.0) g/dL ABO Group Rh Factor Microbiology 11/20/21 11:43 Urine Culture - Preliminary Catherized GRAM POSITIVE ID AND SENSITIVITY PENDING 11/20/21 11:44 Blood Culture Gram Stain - Final Blood Blood Culture - Preliminary GRAM POSITIVE ID AND SENSITIVITY PENDING 11/20/21 11:25 Blood Culture Gram Stain - Final Blood Blood Culture - Preliminary GRAM POSITIVE ID AND SENSITIVITY PENDING Accuchecks Date 11/22/21 Date 11/21/21 Time 11:54 Time 21:28 Assessment/Plan (1) Thrombocytopenia Current Visit: Yes Status: Acute Assessment & Plan: Chief Complaint Diagnosis thrombocytopenia, elevated troponin Allergies Allergy/AdvReac Type Severity Reaction Status Date / Time Penicillins Allergy Intermediate Verified 11/20/21 11:06 Sulfa (Sulfonamide Allergy Intermediate Verified 11/20/21 11:06 Antibiotics) Vital Signs (Last 24 hours) Temp Pulse Resp BP BP Pulse Ox 11/22/21 18:00 113 H 18 89/60 97 11/22/21 17:56 133 H 21 94/58 11/22/21 16:00 96.8 F 106 H 18 103/61 98 11/22/21 14:34 150 H 21 95 11/22/21 14:00 93 H 96/61 96 11/22/21 12:00 97.2 F 92 H 25 H 96/72 92 L 11/22/21 11:26 98 H 24 90 L 11/22/21 10:00 96 H 24 88/60 97 11/22/21 08:55 80 28 H 99 11/22/21 08:00 97.6 F 86 19 99/62 99 11/22/21 06:36 97.8 F 86 18 94/63 98 11/22/21 05:14 98.2 F 89 16 93/62 97 11/22/21 04:00 98.2 F 101 H 16 94/77 97 11/22/21 02:12 97.4 F 89 16 102/70 96 11/22/21 00:50 97.7 F 84 16 95/50 97 11/21/21 23:51 93 H 11/21/21 23:05 97.8 F 94 H 18 106/66 97 11/21/21 22:00 97.7 F 88 18 87/57 96 11/21/21 21:00 97.6 F 85 18 82/50 96 11/21/21 20:18 97.6 F 88 18 99/38 96 11/21/21 20:00 97.3 F 75 19 88/58 96 11/21/21 19:24 88 16 95 Current Medications Generic Name Dose Route Start Last Admin Trade Name Freq PRN Reason Stop Dose Admin Acetaminophen 650 mg 11/20/21 15:07 11/22/21 13:59 Acetaminophen 325 Mg Tablet PO 12/20/21 15:06 650 mg Q4H PRN PRN Administration PAIN AND/OR FEVER Albuterol/Ipratropium 3 ml 11/20/21 15:07 11/22/21 14:33 Ipratropium/Albuterol Sulfate 3 Ml Ampul.Neb IH 12/20/21 15:06 3 ml QIDRT ESTRELLITA Administration Device 1 11/23/21 09:30 Therapuetic Drug Level Monitor Each IJ 11/23/21 09:31 1XONLY ONE Diltiazem HCl 180 mg 11/21/21 10:00 11/22/21 09:29 Diltiazem Hcl 180 Mg Cap.Sr.24h PO 12/21/21 09:59 180 mg DAILY ESTRELLITA Administration Fluticasone Propionate 0 gm 11/20/21 16:42 Fluticasone Propionate 16 Gm Bottle Nasal [place] NS 12/20/21 16:41 DAILY PRN PRN ALLERGIES Folic Acid 1 mg 11/21/21 10:00 11/22/21 09:29 Folic Acid 1 Mg Tablet PO 12/21/21 09:59 1 mg DAILY ESTRELLITA Administration Gabapentin 100 mg 11/20/21 22:00 11/22/21 09:29 Gabapentin 100 Mg Capsule PO 12/20/21 21:59 100 mg BID ESTRELLITA Administration Sodium Chloride 1,000 mls @ 30 mls/hr 11/20/21 15:07 11/22/21 14:34 Sodium Chloride 0.9% 1000 Ml IV 12/20/21 15:06 30 mls/hr .Q24H ESTRELLITA Administration Vancomycin HCl 500 mg/ Sodium 100 mls @ 100 mls/hr 11/21/21 10:00 11/22/21 09:46 Chloride IV 12/21/21 09:59 100 mls/hr Q24H10 ESTRELLITA Administration Diltiazem HCl 100 mls @ 5 mls/hr 11/22/21 17:46 11/22/21 17:56 Cardizem Drip 100 Mg/100 Ml D5w IV 12/22/21 17:45 5 mg/hr .Q20H PRN 5 mls/hr HEART RATE/ A-FIB Administration Protocol 5 MG/HR Levofloxacin 250 mg 11/21/21 10:00 11/22/21 09:29 Levofloxacin 250 Mg Tab PO 12/21/21 09:59 250 mg DAILY ESTRELLITA Administration Methylprednisolone Sodium Succinate 60 mg 11/20/21 18:00 11/22/21 17:55 Methylprednis Sod Succ 125 Mg/2 Ml Vial IV 12/20/21 17:59 60 mg Q6HT ESTRELLITA Administration Mirtazapine 30 mg 11/20/21 22:00 11/21/21 22:37 Mirtazapine 30 Mg Tablet PO 12/20/21 21:59 30 mg QHS ESTRELLITA Administration Miscellaneous Information 1 each 11/20/21 17:00 Medication Intervention 1 Each Each 12/20/21 16:59 .RN TO CHECK WITH PT ESTRELLITA Pantoprazole Sodium 40 mg 11/21/21 10:00 11/22/21 09:30 Pantoprazole 40 Mg Vial IV 12/21/21 09:59 40 mg Q24H10 ESTRELLITA Administration Paroxetine HCl 20 mg 11/21/21 10:00 11/22/21 09:29 Paroxetine Hcl 20 Mg Tablet PO 12/21/21 09:59 20 mg DAILY ESTRELLITA Administration Fluticasone/Salmeterol 2 puff 11/20/21 19:00 11/22/21 07:21 Fluticasone/Salmeterol 115/21 - 120 Puff Common Canister IH 12/20/21 18:59 2 puff BIDRT ESTRELLITA Administration Simvastatin 20 mg 11/21/21 10:00 11/22/21 09:29 Simvastatin 20 Mg Tablet PO 12/21/21 09:59 20 mg DAILY ESTRELLITA Administration Discontinued Medications Generic Name Dose Route Start Last Admin Trade Name Freq PRN Reason Stop Dose Admin Albuterol/Ipratropium 3 ml 11/20/21 11:21 11/20/21 11:37 Ipratropium/Albuterol Sulfate 3 Ml Ampul.Neb IH 11/20/21 11:22 3 ml STAT ONE Administration Albuterol/Ipratropium Confirm 11/20/21 11:26 Ipratropium/Albuterol Sulfate 3 Ml Ampul.Neb Administered 11/20/21 11:27 Dose 3 ml IH .STK-MED ONE Methylprednisolone Sodium 0 mg 11/20/21 11:21 11/20/21 11:27 Succinate 125 mg/ Sterile IV 11/20/21 11:22 125 mg Water 2 ml STAT ONE Administration Methylprednisolone Sodium 0 mg 11/20/21 18:00 Succinate 60 mg/ Sterile Water IV 12/20/21 17:59 2 ml Q6HT ESTRELLITA Diltiazem HCl 5 mg 11/22/21 14:12 11/22/21 14:31 Diltiazem Hcl Iv 5 Mg/Ml Vial IV 11/22/21 14:13 5 mg STAT ONE Administration Levofloxacin/Dextrose 500 mg in 100 mls @ 100 mls/hr 11/20/21 12:16 11/20/21 13:42 Levofloxacin 500mg/100ml D5w IV 11/20/21 13:15 Infused STAT STA Infusion Levofloxacin/Dextrose Confirm 11/20/21 12:32 Levofloxacin 500mg/100ml D5w Administered 11/20/21 12:33 Dose 500 mg in 100 mls @ ud IV .STK-MED ONE Sodium Chloride 1,000 mls @ 100 mls/hr 11/20/21 12:45 11/20/21 14:16 Sodium Chloride 0.9% 1000 Ml IV 12/20/21 12:44 500 mls/hr .Q10H ESTRELLITA Infusion Sodium Chloride 500 mls @ 500 mls/hr 11/20/21 14:43 11/20/21 14:45 Sodium Chloride 0.9% 500 Ml IV 11/20/21 15:42 500 mls/hr .Q1H ONE Administration Sodium Chloride Confirm 11/20/21 14:45 Sodium Chloride 0.9% 500 Ml Administered 11/20/21 14:46 Dose 500 mls @ ud IV .STK-MED ONE Sodium Chloride Confirm 11/20/21 13:10 Sodium Chloride 0.9% 1000 Ml Administered 11/20/21 13:11 Dose 1,000 mls @ ud .ROUTE .STK-MED ONE Diltiazem HCl 100 mls @ 5 mls/hr 11/20/21 16:19 11/21/21 16:57 Cardizem Drip 100 Mg/100 Ml D5w IV 12/20/21 16:18 0 mg/hr .Q20H PRN 0 mls/hr HEART RATE/ A-FIB Titration Protocol 5 MG/HR Levofloxacin/Dextrose 250 mg in 50 mls @ 100 mls/hr 11/22/21 10:00 Levaquin 250mg/50ml D5w IV 12/22/21 09:59 Q48H ESTRELLITA Sodium Chloride Confirm 11/22/21 16:14 Sodium Chloride 0.9% 500 Ml Administered 11/22/21 16:15 Dose 500 mls @ ud IV .STK-MED ONE Methylprednisolone Sodium Succinate Confirm 11/20/21 11:26 Methylprednis Sod Succ 125 Mg/2 Ml Vial Administered 11/20/21 11:27 Dose 125 mg .ROUTE .STK-MED ONE Non-Formulary Medication 20 mg 11/21/21 10:00 Omeprazole [Omeprazole] PO 12/21/21 09:59 DAILY [facility] Non-Formulary Medication 1 each 11/21/21 08:56 11/21/21 11:11 Pharmacy Dose Request: Vancomycin 1 Each IV 11/21/21 08:57 1 each STAT STA Administration Non-Formulary Medication 1 each 11/21/21 08:57 11/21/21 11:12 Pharmacy Dosing Request 11/21/21 08:58 1 each STAT ONE Administration Prednisone 20 mg 11/20/21 22:00 Prednisone 20 Mg Tablet PO 12/20/21 21:59 BID ESTRELLITA Tiotropium [place] 1 ea 11/21/21 10:00 Tiotropium [place] 18 Mcg/Cap Inhaler IH 12/21/21 09:59 DAILY ESTRELLITA Intake & Output (Last 24 hours) 11/20/21 11/21/21 11/22/21 11/23/21 11:59 11:59 11:59 11:59 Intake Total 2051 1413 1098 Output Total 775 800 300 Balance 1276 613 798 Weight 47.174 kg 48.1 kg 48.3 kg Microbiology Results (Last 24 hours) 11/20/21 11:43 Catherized Urine Culture - Preliminary GRAM POSITIVE ID AND SENSITIVITY PENDING 11/20/21 11:44 Blood Blood Culture Gram Stain - Final 11/20/21 11:44 Blood Blood Culture - Preliminary GRAM POSITIVE ID AND SENSITIVITY PENDING 11/20/21 11:25 Blood Blood Culture Gram Stain - Final 11/20/21 11:25 Blood Blood Culture - Preliminary GRAM POSITIVE ID AND SENSITIVITY PENDING Laboratory Results (Last 24 hours) 11/22/21 11/22/21 11/22/21 16:20 11:28 09:02 WBC RBC Hgb Hct MCV MCH MCHC RDW Plt Count Segmented Neutrophils Band Neutrophils Lymphocytes (Manual) Monocytes (Manual) Toxic Granulation Platelet Estimate RBC Morphology Anisocytosis Sodium Potassium Chloride Carbon Dioxide Anion Gap BUN Creatinine Estimated GFR Glucose POC Glucometer 150 H 103 Calcium Total Bilirubin AST ALT Alkaline Phosphatase Troponin I Serum Total Protein Albumin ABO Group A Rh Factor NEGATIVE 11/22/21 11/22/21 11/22/21 07:47 04:25 04:25 WBC 6.8 RBC 3.20 L Hgb 10.9 L Hct 33.0 L MCV 103.1 H MCH 34.1 H MCHC 33.0 RDW 16.8 H Plt Count 1 L* D Segmented Neutrophils 88 H Band Neutrophils 4 H Lymphocytes (Manual) 5 L Monocytes (Manual) 3 Toxic Granulation 1+ Platelet Estimate DECREASED RBC Morphology ABNORMAL Anisocytosis 1+ Sodium 133 L Potassium 3.9 Chloride 103 Carbon Dioxide 24 Anion Gap 9.6 BUN 46 H Creatinine 1.34 H Estimated GFR 42.1 Glucose 115 H POC Glucometer 113 H Calcium 7.9 L Total Bilirubin 0.80 AST 24 ALT 14 Alkaline Phosphatase 65 Troponin I Serum Total Protein 4.7 L Albumin 2.2 L ABO Group Rh Factor 11/22/21 11/21/21 04:25 21:09 WBC RBC Hgb Hct MCV MCH MCHC RDW Plt Count Segmented Neutrophils Band Neutrophils Lymphocytes (Manual) Monocytes (Manual) Toxic Granulation Platelet Estimate RBC Morphology Anisocytosis Sodium Potassium Chloride Carbon Dioxide Anion Gap BUN Creatinine Estimated GFR Glucose POC Glucometer 142 H Calcium Total Bilirubin AST ALT Alkaline Phosphatase Troponin I 0.101 H* Serum Total Protein Albumin ABO Group Rh Factor Orders (Last 24 hours) Category Date Time Status Miscellaneous Nursing Order ROUTINE Care 11/22/21 09:02 Active ABO TYPING Stat Lab 11/22/21 09:02 Completed BLOOD COMPONENT REQUEST Stat Lab 11/22/21 09:02 Completed CBC W DIFF AM.LAB Lab 11/22/21 04:25 Completed CMP AM.LAB Lab 11/22/21 04:25 Completed Manual Differential NC Routine Lab 11/22/21 04:25 Completed POCT GLUCOSE Stat Lab 11/21/21 21:09 Completed POCT GLUCOSE Stat Lab 11/22/21 07:47 Completed POCT GLUCOSE Stat Lab 11/22/21 11:28 Completed POCT GLUCOSE Stat Lab 11/22/21 16:20 Completed RH TYPING Stat Lab 11/22/21 09:02 Completed TROPONIN Routine Lab 11/22/21 04:25 Completed Vancomycin, Trough Urgent Lab 11/23/21 09:30 Ordered Diltiazem HCl 100 mg/100 ml [Cardizem Drip 100 mg/100 Med 11/22/21 17:46 Ordered ml D5w] 100 ml IV 5 mg/hr Diltiazem HCl 50 mg/10 ml [Cardizem IV 50 MG/10 ML Med 11/22/21 14:12 Discontinued *] 5 mg IV STAT ONE Levofloxacin [Levaquin 250MG/50ML D5W] Med 11/22/21 10:00 Discontinued 250 mg in 50 ml IV Q48H NaCl 0.9% 500 ml [Sodium Chloride 0.9% 500 ML] 500 ml Med 11/22/21 16:14 Discontinued IV UD Therapuetic Drug Level Monitor [Trough Drug Levels] Med 11/23/21 09:30 Once 1 IJ 1XONLY ONE Patient Care Notes (Last 24 hours) 11/22/21 17:51 Nursing Note by Liseth Tiwari Patient HR starting to increase again 120's -150's. Dr Borja notified and order recvd to restart Cardizem gtt Initialized on 11/22/21 17:51 - END OF NOTE 11/22/21 16:42 Nursing Note by Liseth Tiwari 1st unit of platelets infusing without difficulty. Patient resting in bed with bipapa on and sats 98%. No active bleeding noted. Watching TV at present Initialized on 11/22/21 16:42 - END OF NOTE 11/22/21 14:23 Nursing Note by Liseth Tiwari HR elevated 120's-150's. Patient back to bed and put back on bipap. Sat up to 95% Dr Borja notifed of elevated HR and Orders recvd for 1x dose of Cardizem 5mg IV. No gtt or additional po med at this time. Initialized on 11/22/21 14:23 - END OF NOTE 11/22/21 10:03 (created 11/22/21 10:25) Nursing Note by June Shrestha FAXED RECORDS REQUEST TO DR. MARTINEZ'S OFFICE. Initialized on 11/22/21 10:25 - END OF NOTE 11/22/21 09:20 (created 11/22/21 09:24) Nursing Note by June Shrestha FAXED RECORD REQUEST TO DR. CABRERA' OFFICE Initialized on 11/22/21 09:24 - END OF NOTE 11/22/21 08:15 Case Management Note by Bethany Gonzalez PATIENT ACUTELY ILL ON BIPAP AND CPAP, WILL HOLD ON D/C ASSESSMENT AT THIS TIME. Initialized on 11/22/21 08:15 - END OF NOTE 11/22/21 07:10 Nursing Note by Itzel Guerin Pt had a critical Troponin of 0.101 which is trending down from 0.515. Platlets are also critical at 1,000. Dr Borja notified @ this time. Initialized on 11/22/21 07:10 - END OF NOTE (2) Acute on chronic respiratory failure Current Visit: Yes Status: Acute Qualifiers: Respiratory failure complication: hypoxia and hypercapnia Qualified Code(s): J96.21 - Acute and chronic respiratory failure with hypoxia; J96.22 - Acute and chronic respiratory failure with hypercapnia Code(s): J96.20 - ACUTE AND CHR RESP FAILURE, UNSP W HYPOXIA OR HYPERCAPNIA (3) Acute renal failure Current Visit: Yes Status: Acute Qualifiers: Acute renal failure type: unspecified Qualified Code(s): N17.9 - Acute kidney failure, unspecified (4) Elevated troponin Current Visit: Yes Status: Acute Code(s): R77.8 - OTHER SPECIFIED ABNORMALITIES OF PLASMA PROTEINS
[2021-11-22] MEDS ORDERED: DECADRON 10MG INJ. IV ONE (20:02)
[2021-11-22] MEDS ORDERED: Decadron 4 MG INJ ONE (20:06)
[2021-11-22] MEDS: REMERON 30 MG PO SCH (21:25)
[2021-11-23] MEDS: solu-MEDROL IV SCH ×4 (05:30→22:46)
[2021-11-23] MEDS: Advair Hfa 115/21 Common canister IH SCH (07:28)
[2021-11-23] MEDS: DUONEB 0.5-3 MG/3 ml Neb IH SCH ×4 (07:28→18:45)
[2021-11-23] MEDS: Cardizem CD 180 MG PO SCH (09:09)
[2021-11-23] MEDS ORDERED: TROUGH DRUG LEVELS IJ ONE (09:30)
[2021-11-23 09:54] LABS: Basophil (Absolute #) 0 (0-0.4); Eosinophil (Absolute #) 0 (0-0.5); Hematocrit 27.4 % (35-47); Hemoglobin 8.9 gm/dl (12.0-16.0); Lymphocyte (Absolute #) 0.17 (1.0-4.6); Lymphocytes % 2.5 % (24.0-44.0); Mean Cell Volume 104.6 fl (78-100); Mean Corpuscular Hgb Concent. 32.5 g/dl (32-36); Mean Platelet Volume 9.7 fl (7.5-11.0); Monocyte (Absolute #) 0.14 (0.0-1.3); Neutrophil % 95.5 % (36.0-66.0); Red Blood Count 2.62 M/mm3 (4.1-5.4); Red Cell Distribution Width 17.1 % (11.5-14.0); White Blood Count 6.9 K/mm3 (4.0-10.5)
[2021-11-23 09:55] LABS: Platelet Count 49 K/mm3 (150-450)
[2021-11-23 10:25] LABS: ALBUMIN 2.8 g/dL (3.5-5.0); ANION GAP 11.1 MEQ/L (5-15); BILIRUBIN,TOTAL 0.9 mg/dL (0.2-1.3); Calcium 8.3 mg/dL (8.4-10.2); Creatinine 1 1.58 mg/dL (0.52-1.04); EST GLOMERULAR FILTRATION RATE 34.8 ML/MIN; Total Protein 5.9 g/dL (6.3-8.2)
[2021-11-23] MEDS: PROTONIX 40 MG IV IV SCH (10:31)
[2021-11-23] MEDS: Neurontin 100 MG PO SCH ×2 (10:36→22:39)
[2021-11-23] MEDS: Levofloxacin 250MG Tablet PO SCH (10:36)
[2021-11-23] MEDS: Paxil 20 MG PO SCH (10:36)
[2021-11-23] MEDS: FOLATE 1 MG PO SCH (10:36)
[2021-11-23] MEDS: ZOCOR 20MG PO SCH (10:39)
[2021-11-23] MEDS: VANCOCIN 500 MG VIAL*** 500 MG in Sodium Chloride 100ML MINI-BAG PLUS 100 ML IV SCH ×2 (10:44→22:39)
[2021-11-23] MEDS: CARDIZEM DRIP 100 MG/100 ML D5W 100 ML IV PRN ×2 (10:48→20:30)
[2021-11-23] MEDS ORDERED: Sterile H2O 10 ml IJ ONE (12:14)
--- NOTE | 2021-11-23 13:24 | PCM.NOTE ---
Date and Time: 11/23/21 1323 Subjective Assessment: doing little better - Review of Systems Constitutional: No Fever, No Chills Eyes: No Symptoms Ears, Nose, & Throat: No Symptoms Respiratory: No Cough, No Short Of Breath Cardiac: No Chest Pain, No Edema, No Syncope Abdominal/Gastrointestinal: No Abdominal Pain, No Nausea, No Vomiting, No Diarrhea Genitourinary Symptoms: No Dysuria Musculoskeletal: No Back Pain, No Neck Pain Skin: No Rash Neurological: No Dizziness, No Focal Weakness, No Sensory Changes Psychological: No Symptoms Endocrine: No Symptoms Hematologic/Lymphatic: No Symptoms Immunological/Allergic: No Symptoms Objective Exam General Appearance: no apparent distress, alert Neurologic Exam: alert, oriented x 3, cooperative, normal mood/affect, nml cerebellar function, sensation nml, No motor deficits Skin Exam: normal color, warm, dry Eye Exam: PERRL, EOMI, eyes nml inspection Ears, Nose, Throat Exam: normal ENT inspection, pharynx normal, moist mucous membranes Neck Exam: normal inspection, non-tender, supple, full range of motion Respiratory Exam: normal breath sounds, lungs clear, No respiratory distress Cardiovascular Exam: regular rate/rhythm, normal heart sounds Gastrointestinal/Abdomen Exam: soft, No tenderness, No mass Extremity Exam: normal inspection, normal range of motion Back Exam: normal inspection, normal range of motion, No CVA tenderness, No vertebral tenderness Pelvic Exam: deferred Rectal Exam: deferred OBJECTIVE DATA Vital Signs: Vital Signs - 24 hr Temp Pulse Resp BP BP Pulse Ox 11/23/21 12:30 131 H 28 H 103/87 11/23/21 10:49 115 H 24 90 L 11/23/21 09:00 85 25 H 87/73 92 L 11/23/21 08:00 97.4 F 95 H 15 90/64 98 11/23/21 07:27 94 H 21 100 11/23/21 06:58 96 H 16 90/54 96 11/23/21 06:00 74 18 82/65 96 11/23/21 05:00 92 H 20 89/69 97 11/23/21 04:00 97.2 F 115 H 15 85/52 97 11/23/21 03:00 109 H 19 78/58 97 11/23/21 02:00 101 H 25 H 88/60 96 11/23/21 01:00 104 H 21 90/65 96 11/23/21 00:01 116 H 11/23/21 00:00 97.1 F 115 H 18 84/61 97 11/22/21 23:00 101 H 11 L 110/53 96 11/22/21 22:00 117 H 14 96/66 97 11/22/21 21:00 104 H 12 90/61 97 11/22/21 20:35 97.3 F 136 H 18 81/61 97 11/22/21 19:47 97.0 F 107 H 13 88/58 97 11/22/21 19:12 122 H 16 97 11/22/21 18:00 113 H 18 89/60 97 11/22/21 17:56 133 H 21 94/58 11/22/21 16:00 96.8 F 106 H 18 103/61 98 11/22/21 14:34 150 H 21 95 11/22/21 14:00 93 H 96/61 96 Pain Assessment - Last Documented Pain Intensity 10 Pain Scale Used 0-10 Pain Scale Intake and Output: Intake & Output 11/21/21 11/22/21 11/23/21 11/24/21 11:59 11:59 11:59 11:59 Intake Total 2051 1413 1320 Output Total 775 800 550 Balance 1276 613 770 Weight 48.1 kg 48.3 kg 49.8 kg Lab Results: Lab Results-Last 24 Hours 11/22/21 11/22/21 11/22/21 Range/Units 09:02 16:20 22:16 WBC (4.0-10.5) K/mm3 RBC (4.1-5.4) M/mm3 Hgb (12.0-16.0) gm/dl Hct (35-47) % MCV (78-100) fl MCH (26-32) pg MCHC (32-36) g/dl RDW (11.5-14.0) % Plt Count (150-450) K/mm3 MPV (7.5-11.0) fl Gran % (36.0-66.0) % Eos # (Auto) (0-0.5) Absolute Lymphs (auto) (1.0-4.6) Absolute Monos (auto) (0.0-1.3) Lymphocytes % (24.0-44.0) % Monocytes % (0.0-12.0) % Eosinophils % (0.00-5.0) % Basophils % (0.0-0.4) % Absolute Granulocytes (1.4-6.9) Basophils # (0-0.4) Sodium (137-145) mmol/L Potassium (3.5-5.1) mmol/L Chloride (98-107) mmol/L Carbon Dioxide (22-30) mmol/L Anion Gap (5-15) MEQ/L BUN (7-17) mg/dL Creatinine (0.52-1.04) mg/dL Estimated GFR ML/MIN Glucose (74-106) mg/dL POC Glucometer 150 H 157 H (74 to 106) mg/dL Calcium (8.4-10.2) mg/dL Total Bilirubin (0.2-1.3) mg/dL AST (14-36) U/L ALT (0-35) U/L Alkaline Phosphatase (38-126) U/L Serum Total Protein (6.3-8.2) g/dL Albumin (3.5-5.0) g/dL Vancomycin Trough (10-20) ug/mL ABO Group A Rh Factor NEGATIVE 11/23/21 11/23/21 11/23/21 Range/Units 07:26 09:40 09:40 WBC 6.9 (4.0-10.5) K/mm3 RBC 2.62 L (4.1-5.4) M/mm3 Hgb 8.9 L (12.0-16.0) gm/dl Hct 27.4 L (35-47) % MCV 104.6 H (78-100) fl MCH 34.0 H (26-32) pg MCHC 32.5 (32-36) g/dl RDW 17.1 H (11.5-14.0) % Plt Count 49 L D (150-450) K/mm3 MPV 9.7 (7.5-11.0) fl Gran % 95.5 H (36.0-66.0) % Eos # (Auto) 0 (0-0.5) Absolute Lymphs (auto) 0.17 L (1.0-4.6) Absolute Monos (auto) 0.14 (0.0-1.3) Lymphocytes % 2.5 L (24.0-44.0) % Monocytes % 2.0 (0.0-12.0) % Eosinophils % 0.0 (0.00-5.0) % Basophils % 0.0 (0.0-0.4) % Absolute Granulocytes 6.60 (1.4-6.9) Basophils # 0 (0-0.4) Sodium (137-145) mmol/L Potassium (3.5-5.1) mmol/L Chloride (98-107) mmol/L Carbon Dioxide (22-30) mmol/L Anion Gap (5-15) MEQ/L BUN (7-17) mg/dL Creatinine (0.52-1.04) mg/dL Estimated GFR ML/MIN Glucose (74-106) mg/dL POC Glucometer 152 H (74 to 106) mg/dL Calcium (8.4-10.2) mg/dL Total Bilirubin (0.2-1.3) mg/dL AST (14-36) U/L ALT (0-35) U/L Alkaline Phosphatase (38-126) U/L Serum Total Protein (6.3-8.2) g/dL Albumin (3.5-5.0) g/dL Vancomycin Trough 7.29 L (10-20) ug/mL ABO Group Rh Factor 11/23/21 11/23/21 Range/Units 09:40 12:22 WBC (4.0-10.5) K/mm3 RBC (4.1-5.4) M/mm3 Hgb (12.0-16.0) gm/dl Hct (35-47) % MCV (78-100) fl MCH (26-32) pg MCHC (32-36) g/dl RDW (11.5-14.0) % Plt Count (150-450) K/mm3 MPV (7.5-11.0) fl Gran % (36.0-66.0) % Eos # (Auto) (0-0.5) Absolute Lymphs (auto) (1.0-4.6) Absolute Monos (auto) (0.0-1.3) Lymphocytes % (24.0-44.0) % Monocytes % (0.0-12.0) % Eosinophils % (0.00-5.0) % Basophils % (0.0-0.4) % Absolute Granulocytes (1.4-6.9) Basophils # (0-0.4) Sodium 137 (137-145) mmol/L Potassium 4.0 (3.5-5.1) mmol/L Chloride 106 (98-107) mmol/L Carbon Dioxide 24 (22-30) mmol/L Anion Gap 11.1 (5-15) MEQ/L BUN 63 H (7-17) mg/dL Creatinine 1.58 H (0.52-1.04) mg/dL Estimated GFR 34.8 ML/MIN Glucose 144 H (74-106) mg/dL POC Glucometer 126 H (74 to 106) mg/dL Calcium 8.3 L (8.4-10.2) mg/dL Total Bilirubin 0.90 (0.2-1.3) mg/dL AST 30 (14-36) U/L ALT 21 (0-35) U/L Alkaline Phosphatase 85 (38-126) U/L Serum Total Protein 5.9 L (6.3-8.2) g/dL Albumin 2.8 L (3.5-5.0) g/dL Vancomycin Trough (10-20) ug/mL ABO Group Rh Factor Multi-Disciplinary Progress Notes: Multi-Disciplinary Progress Notes 11/23/21 09:08 Case Management Note by Bethany Gonzalez PATIENT IS ACUTELY ILL AND STILL ON BIPAP/CPAP. WILL HOLD OFF ON D/C ASSESSMENT AT THIS TIME. . Initialized on 11/23/21 09:08 - END OF NOTE 11/23/21 08:56 Respiratory Note by Alana Chong 0840 PT SWITCHED TI HHF AT 50L AND 100% Initialized on 11/23/21 08:56 - END OF NOTE Assessment/Plan (1) Thrombocytopenia Current Visit: Yes Status: Acute Assessment & Plan: Chief Complaint Diagnosis weakness for 2-3 days Allergies Allergy/AdvReac Type Severity Reaction Status Date / Time Penicillins Allergy Intermediate Verified 11/20/21 11:06 Sulfa (Sulfonamide Allergy Intermediate Verified 11/20/21 11:06 Antibiotics) Vital Signs (Last 24 hours) Temp Pulse Resp BP BP Pulse Ox 11/23/21 12:30 131 H 28 H 103/87 11/23/21 10:49 115 H 24 90 L 11/23/21 09:00 85 25 H 87/73 92 L 11/23/21 08:00 97.4 F 95 H 15 90/64 98 11/23/21 07:27 94 H 21 100 11/23/21 06:58 96 H 16 90/54 96 11/23/21 06:00 74 18 82/65 96 11/23/21 05:00 92 H 20 89/69 97 11/23/21 04:00 97.2 F 115 H 15 85/52 97 11/23/21 03:00 109 H 19 78/58 97 11/23/21 02:00 101 H 25 H 88/60 96 11/23/21 01:00 104 H 21 90/65 96 11/23/21 00:01 116 H 11/23/21 00:00 97.1 F 115 H 18 84/61 97 11/22/21 23:00 101 H 11 L 110/53 96 11/22/21 22:00 117 H 14 96/66 97 11/22/21 21:00 104 H 12 90/61 97 11/22/21 20:35 97.3 F 136 H 18 81/61 97 11/22/21 19:47 97.0 F 107 H 13 88/58 97 11/22/21 19:12 122 H 16 97 11/22/21 18:00 113 H 18 89/60 97 11/22/21 17:56 133 H 21 94/58 11/22/21 16:00 96.8 F 106 H 18 103/61 98 11/22/21 14:34 150 H 21 95 11/22/21 14:00 93 H 96/61 96 Current Medications Generic Name Dose Route Start Last Admin Trade Name Freq PRN Reason Stop Dose Admin Acetaminophen 650 mg 11/20/21 15:07 11/22/21 13:59 Acetaminophen 325 Mg Tablet PO 12/20/21 15:06 650 mg Q4H PRN PRN Administration PAIN AND/OR FEVER Albuterol/Ipratropium 3 ml 11/20/21 15:07 11/23/21 10:43 Ipratropium/Albuterol Sulfate 3 Ml Ampul.Neb IH 12/20/21 15:06 3 ml QIDRT ESTRELLITA Administration Device 1 11/24/21 21:30 Therapuetic Drug Level Monitor Each IJ 11/24/21 21:31 1XONLY ONE Diltiazem HCl 180 mg 11/21/21 10:00 11/23/21 09:09 Diltiazem Hcl 180 Mg Cap.Sr.24h PO 12/21/21 09:59 180 mg DAILY ESTRELLITA Administration Fluticasone Propionate 0 gm 11/20/21 16:42 Fluticasone Propionate 16 Gm Bottle Nasal [place] NS 12/20/21 16:41 DAILY PRN PRN ALLERGIES Folic Acid 1 mg 11/21/21 10:00 11/23/21 10:36 Folic Acid 1 Mg Tablet PO 12/21/21 09:59 1 mg DAILY ESTRELLITA Administration Gabapentin 100 mg 11/20/21 22:00 11/23/21 10:36 Gabapentin 100 Mg Capsule PO 12/20/21 21:59 100 mg BID ESTRELLITA Administration Sodium Chloride 1,000 mls @ 30 mls/hr 11/20/21 15:07 11/22/21 14:34 Sodium Chloride 0.9% 1000 Ml IV 12/20/21 15:06 30 mls/hr .Q24H ESTRELLITA Administration Diltiazem HCl 100 mls @ 5 mls/hr 11/22/21 17:46 11/23/21 12:30 Cardizem Drip 100 Mg/100 Ml D5w IV 12/22/21 17:45 10 mg/hr .Q20H PRN 10 mls/hr HEART RATE/ A-FIB Titration Protocol 5 MG/HR Vancomycin HCl 500 mg/ Sodium 100 mls @ 100 mls/hr 11/23/21 22:00 Chloride IV 12/23/21 21:59 Q12HT ESTRELLITA Levofloxacin 250 mg 11/21/21 10:00 11/23/21 10:36 Levofloxacin 250 Mg Tab PO 12/21/21 09:59 250 mg DAILY ESTRELLITA Administration Methylprednisolone Sodium Succinate 60 mg 11/20/21 18:00 11/23/21 12:42 Methylprednis Sod Succ 125 Mg/2 Ml Vial IV 12/20/21 17:59 60 mg Q6HT ESTRELLITA Administration Mirtazapine 30 mg 11/20/21 22:00 11/22/21 21:25 Mirtazapine 30 Mg Tablet PO 12/20/21 21:59 30 mg QHS ESTRELLITA Administration Miscellaneous Information 1 each 11/20/21 17:00 Medication Intervention 1 Each Each 12/20/21 16:59 .RN TO CHECK WITH PT ESTRELLITA Pantoprazole Sodium 40 mg 11/21/21 10:00 11/23/21 10:31 Pantoprazole 40 Mg Vial IV 12/21/21 09:59 40 mg Q24H10 ESTRELLITA Administration Paroxetine HCl 20 mg 11/21/21 10:00 11/23/21 10:36 Paroxetine Hcl 20 Mg Tablet PO 12/21/21 09:59 20 mg DAILY ESTRELLITA Administration Fluticasone/Salmeterol 2 puff 11/20/21 19:00 11/23/21 07:28 Fluticasone/Salmeterol /21 - 120 Puff Common Canister IH 12/20/21 18:59 2 puff BIDRT ESTRELLITA Administration Simvastatin 20 mg 11/21/21 10:00 11/23/21 10:39 Simvastatin 20 Mg Tablet PO 12/21/21 09:59 20 mg DAILY ESTRELLITA Administration Discontinued Medications Generic Name Dose Route Start Last Admin Trade Name Freq PRN Reason Stop Dose Admin Albuterol/Ipratropium 3 ml 11/20/21 11:21 11/20/21 11:37 Ipratropium/Albuterol Sulfate 3 Ml Ampul.Neb IH 11/20/21 11:22 3 ml STAT ONE Administration Albuterol/Ipratropium Confirm 11/20/21 11:26 Ipratropium/Albuterol Sulfate 3 Ml Ampul.Neb Administered 11/20/21 11:27 Dose 3 ml IH .STK-MED ONE Methylprednisolone Sodium 0 mg 11/20/21 11:21 11/20/21 11:27 Succinate 125 mg/ Sterile IV 11/20/21 11:22 125 mg Water 2 ml STAT ONE Administration Methylprednisolone Sodium 0 mg 11/20/21 18:00 Succinate 60 mg/ Sterile Water IV 12/20/21 17:59 2 ml Q6HT ESTRELLITA Device 1 11/23/21 09:30 11/23/21 10:36 Therapuetic Drug Level Monitor Each IJ 11/23/21 09:31 Not Given 1XONLY ONE Dexamethasone Sodium Phosphate 6 mg 11/22/21 20:02 11/22/21 20:10 Dexamethasone Sod Phosphate 10 Mg/Ml IV 11/22/21 20:03 6 mg STAT ONE Administration Dexamethasone Sodium Phosphate Confirm 11/22/21 20:06 Dexamethasone Sod Phosphate 4 Mg/Ml Ml Administered 11/22/21 20:07 Dose 8 mg .ROUTE .STK-MED ONE Diltiazem HCl 5 mg 11/22/21 14:12 11/22/21 14:31 Diltiazem Hcl Iv 5 Mg/Ml Vial IV 11/22/21 14:13 5 mg STAT ONE Administration Levofloxacin/Dextrose 500 mg in 100 mls @ 100 mls/hr 11/20/21 12:16 11/20/21 13:42 Levofloxacin 500mg/100ml D5w IV 11/20/21 13:15 Infused STAT STA Infusion Levofloxacin/Dextrose Confirm 11/20/21 12:32 Levofloxacin 500mg/100ml D5w Administered 11/20/21 12:33 Dose 500 mg in 100 mls @ ud IV .STK-MED ONE Sodium Chloride 1,000 mls @ 100 mls/hr 11/20/21 12:45 11/20/21 14:16 Sodium Chloride 0.9% 1000 Ml IV 12/20/21 12:44 500 mls/hr .Q10H ESTRELLITA Infusion Sodium Chloride 500 mls @ 500 mls/hr 11/20/21 14:43 11/20/21 14:45 Sodium Chloride 0.9% 500 Ml IV 11/20/21 15:42 500 mls/hr .Q1H ONE Administration Sodium Chloride Confirm 11/20/21 14:45 Sodium Chloride 0.9% 500 Ml Administered 11/20/21 14:46 Dose 500 mls @ ud IV .STK-MED ONE Sodium Chloride Confirm 11/20/21 13:10 Sodium Chloride 0.9% 1000 Ml Administered 11/20/21 13:11 Dose 1,000 mls @ ud .ROUTE .STK-MED ONE Diltiazem HCl 100 mls @ 5 mls/hr 11/20/21 16:19 11/21/21 16:57 Cardizem Drip 100 Mg/100 Ml D5w IV 12/20/21 16:18 0 mg/hr .Q20H PRN 0 mls/hr HEART RATE/ A-FIB Titration Protocol 5 MG/HR Levofloxacin/Dextrose 250 mg in 50 mls @ 100 mls/hr 11/22/21 10:00 Levaquin 250mg/50ml D5w IV 12/22/21 09:59 Q48H ESTRELLITA Vancomycin HCl 500 mg/ Sodium 100 mls @ 100 mls/hr 11/21/21 10:00 11/23/21 10:44 Chloride IV 12/21/21 09:59 100 mls/hr Q24H10 ESTRELLITA Administration Sodium Chloride Confirm 11/22/21 16:14 Sodium Chloride 0.9% 500 Ml Administered 11/22/21 16:15 Dose 500 mls @ ud IV .STK-MED ONE Methylprednisolone Sodium Succinate Confirm 11/20/21 11:26 Methylprednis Sod Succ 125 Mg/2 Ml Vial Administered 11/20/21 11:27 Dose 125 mg .ROUTE .STK-MED ONE Non-Formulary Medication 20 mg 11/21/21 10:00 Omeprazole [Omeprazole] PO 12/21/21 09:59 DAILY ESTRELLITA Non-Formulary Medication 1 each 11/21/21 08:56 11/21/21 11:11 Pharmacy Dose Request: Vancomycin 1 Each IV 11/21/21 08:57 1 each STAT STA Administration Non-Formulary Medication 1 each 11/21/21 08:57 11/21/21 11:12 Pharmacy Dosing Request MC 11/21/21 08:58 1 each STAT ONE Administration Prednisone 20 mg 11/20/21 22:00 Prednisone 20 Mg Tablet PO 12/20/21 21:59 BID ESTRELLITA Sterile Water Confirm 11/23/21 12:14 Water For Injection,Sterile 10 Ml Vial Administered 11/23/21 12:15 Dose 10 ml IJ .STK-MED ONE Tiotropium [place] 1 ea 11/21/21 10:00 Tiotropium [place] 18 Mcg/Cap Inhaler IH 12/21/21 09:59 DAILY ESTRELLITA Intake & Output (Last 24 hours) 11/21/21 11/22/21 11/23/21 11/24/21 11:59 11:59 11:59 11:59 Intake Total 2051 1413 1320 Output Total 775 800 550 Balance 1276 613 770 Weight 48.1 kg 48.3 kg 49.8 kg Microbiology Results (Last 24 hours) 11/20/21 11:44 Blood Blood Culture Gram Stain - Final 11/20/21 11:44 Blood Blood Culture - Final Staphylococcus Aureus 11/20/21 11:25 Blood Blood Culture Gram Stain - Final 11/20/21 11:25 Blood Blood Culture - Final Staphylococcus Aureus 11/20/21 11:43 Catherized Urine Culture - Final Strep Dysgalactiae Ssp [facility] Laboratory Results (Last 24 hours) 11/23/21 11/23/21 11/23/21 12:22 09:40 09:40 WBC 6.9 RBC 2.62 L Hgb 8.9 L Hct 27.4 L MCV 104.6 H MCH 34.0 H MCHC 32.5 RDW 17.1 H Plt Count 49 L D MPV 9.7 Gran % 95.5 H Eos # (Auto) 0 Absolute Lymphs (auto) 0.17 L Absolute Monos (auto) 0.14 Lymphocytes % 2.5 L Monocytes % 2.0 Eosinophils % 0.0 Basophils % 0.0 Absolute Granulocytes 6.60 Basophils # 0 Sodium 137 Potassium 4.0 Chloride 106 Carbon Dioxide 24 Anion Gap 11.1 BUN 63 H Creatinine 1.58 H Estimated GFR 34.8 Glucose 144 H POC Glucometer 126 H Calcium 8.3 L Total Bilirubin 0.90 AST 30 ALT 21 Alkaline Phosphatase 85 Serum Total Protein 5.9 L Albumin 2.8 L Vancomycin Trough ABO Group Rh Factor 11/23/21 11/23/21 11/22/21 09:40 07:26 22:16 WBC RBC Hgb Hct MCV MCH MCHC RDW Plt Count MPV Gran % Eos # (Auto) Absolute Lymphs (auto) Absolute Monos (auto) Lymphocytes % Monocytes % Eosinophils % Basophils % Absolute Granulocytes Basophils # Sodium Potassium Chloride Carbon Dioxide Anion Gap BUN Creatinine Estimated GFR Glucose POC Glucometer 152 H 157 H Calcium Total Bilirubin AST ALT Alkaline Phosphatase Serum Total Protein Albumin Vancomycin Trough 7.29 L ABO Group Rh Factor 11/22/21 11/22/21 16:20 09:02 WBC RBC Hgb Hct MCV MCH MCHC RDW Plt Count MPV Gran % Eos # (Auto) Absolute Lymphs (auto) Absolute Monos (auto) Lymphocytes % Monocytes % Eosinophils % Basophils % Absolute Granulocytes Basophils # Sodium Potassium Chloride Carbon Dioxide Anion Gap BUN Creatinine Estimated GFR Glucose POC Glucometer 150 H Calcium Total Bilirubin AST ALT Alkaline Phosphatase Serum Total Protein Albumin Vancomycin Trough ABO Group A Rh Factor NEGATIVE Orders (Last 24 hours) Category Date Time Status CBC W DIFF Stat Lab 11/23/21 09:40 Completed CMP Stat Lab 11/23/21 09:40 Completed CREATININE SERUM AM.LAB Lab 11/24/21 04:00 Ordered CREATININE SERUM AM.LAB Lab 11/25/21 04:00 Ordered CREATININE SERUM AM.LAB Lab 11/26/21 04:00 Ordered POCT GLUCOSE Stat Lab 11/22/21 16:20 Completed POCT GLUCOSE Stat Lab 11/22/21 22:16 Completed POCT GLUCOSE Stat Lab 11/23/21 07:26 Completed POCT GLUCOSE Stat Lab 11/23/21 12:22 Completed Vancomycin, Trough Urgent Lab 11/23/21 09:40 Completed Vancomycin, Trough Urgent Lab 11/24/21 21:30 Ordered Dexamethasone 4 mg [Decadron 4 MG INJ] Med 11/22/21 20:06 Discontinued 8 mg .ROUTE .STK-MED ONE Dexamethasone Sod Phosphate [Decadron 10Mg Inj.] Med 11/22/21 20:02 Discontinued 6 mg IV STAT ONE Diltiazem HCl 100 mg/100 ml [Cardizem Drip 100 mg/100 Med 11/22/21 17:46 Active ml D5w] 100 ml IV 5 mg/hr Diltiazem HCl 50 mg/10 ml [Cardizem IV 50 MG/10 ML Med 11/22/21 14:12 Discontinued *] 5 mg IV STAT ONE NaCl 0.9% 500 ml [Sodium Chloride 0.9% 500 ML] 500 ml Med 11/22/21 16:14 Discontinued IV UD Therapuetic Drug Level Monitor [Trough Drug Levels] Med 11/23/21 09:30 Discontinued 1 IJ 1XONLY ONE Therapuetic Drug Level Monitor [Trough Drug Levels] Med 11/24/21 21:30 Once 1 IJ 1XONLY ONE Vancomycin HCl 500 mg Inj [Vancocin 500 mg Vial] Med 11/23/21 22:00 Active 500 mg NaCl 0.9% 100 ml Mini-Bag Plus [Sodium Chloride 100ML MINI-BAG PLUS] 100 ml IV Q12HT Water For Injection,Sterile [Sterile H2O 10 ml] Med 11/23/21 12:14 Discontinued 10 ml IJ .STK-MED ONE Patient Care Notes (Last 24 hours) 11/23/21 09:26 Nursing Note by Meghan He Dr, pt's heme/onc doctor in [place], was called by this nurse to notify Dr Velasco of admission and clinical course per request of Dr Aguilar. Dr Velasco's office stated they would contact us if the doctor has any questions. Initialized on 11/23/21 09:26 - END OF NOTE 11/23/21 09:08 Case Management Note by Bethany Gonzalez PATIENT IS ACUTELY ILL AND STILL ON BIPAP/CPAP. WILL HOLD OFF ON D/C ASSESSMENT AT THIS TIME. . Initialized on 11/23/21 09:08 - END OF NOTE 11/23/21 08:56 Respiratory Note by Alana Chong 0840 PT SWITCHED TI HHF AT 50L AND 100% Initialized on 11/23/21 08:56 - END OF NOTE 11/22/21 20:15 (created 11/22/21 21:12) Nursing Note by MARIE GURROLA AT 1945 PT'S SECOND UNIT OF PLATELETS WERE STARTED. AT 1954 PT COMPLAINED OF CHEST PAIN 4/10. PLATELETS STOPPED, NEW IV TUBING HUNG WITH NORMAL SALINE AND DR. AGUILAR CALLED. NEW ORDER FOR DECADRON 6MG IV ONCE AND TO STOP TRANSFUSION,. NOTIFY LAB AND TO SEND PLATELETS BACK TO LAB. [facility] COORDINATOR MADE AWARE. Initialized on 11/22/21 21:12 - END OF NOTE 11/22/21 17:51 Nursing Note by Liseth Tiwari Patient HR starting to increase again 120's -150's. Dr Aguilar notified and order recvd to restart Cardizem gtt Initialized on 11/22/21 17:51 - END OF NOTE 11/22/21 16:42 Nursing Note by Liseth Tiwari 1st unit of platelets infusing without difficulty. Patient resting in bed with bipapa on and sats 98%. No active bleeding noted. Watching TV at present Initialized on 11/22/21 16:42 - END OF NOTE 11/22/21 14:23 Nursing Note by Liseth Tiwari HR elevated 120's-150's. Patient back to bed and put back on bipap. Sat up to 95% Dr Aguilar notifed of elevated HR and Orders recvd for 1x dose of Cardizem 5mg IV. No gtt or additional po med at this time. Initialized on 11/22/21 14:23 - END OF NOTE (2) Acute on chronic respiratory failure Current Visit: Yes Status: Acute Qualifiers: Respiratory failure complication: hypoxia and hypercapnia Qualified Code(s): J96.21 - Acute and chronic respiratory failure with hypoxia; J96.22 - Acute and chronic respiratory failure with hypercapnia Code(s): J96.20 - ACUTE AND CHR RESP FAILURE, UNSP W HYPOXIA OR HYPERCAPNIA (3) Acute renal failure Current Visit: Yes Status: Acute Qualifiers: Acute renal failure type: unspecified Qualified Code(s): N17.9 - Acute kidney failure, unspecified (4) Elevated troponin Current Visit: Yes Status: Acute Code(s): R77.8 - OTHER SPECIFIED ABNORMALITIES OF PLASMA PROTEINS
[2021-11-23 13:53] LABS: Slide Review 1 YES
[2021-11-23] MEDS: Sodium Chloride 0.9% 1000 ML 1,000 ML IV SCH ×3 (20:30→21:11)
[2021-11-23] MEDS: REMERON 30 MG PO SCH (22:39)
[2021-11-23] MEDS ORDERED: STERILE WATER FOR INJECTION 20 ML 20 ML ONE (22:47)
[2021-11-24] MEDS: CARDIZEM DRIP 100 MG/100 ML D5W 100 ML IV PRN ×3 (03:05→19:43)
[2021-11-24] MEDS: solu-MEDROL IV SCH ×4 (05:23→23:23)
[2021-11-24] MEDS: Advair Hfa 115/21 Common canister IH SCH ×3 (05:42→19:15)
[2021-11-24 05:43] LABS: Creatinine 1 1.44 mg/dL (0.52-1.04); EST GLOMERULAR FILTRATION RATE 38.7 ML/MIN
[2021-11-24] MEDS: DUONEB 0.5-3 MG/3 ml Neb IH SCH ×4 (05:56→19:14)
--- NOTE | 2021-11-24 09:33 | XRAY ---
Indication: Respiratory failure. Comparison: November 20, 2021. Portable chest demonstrates dramatic worsening diffuse right lung airspace disease with increasing mid to lower lung consolidation/effusion. Also new diffuse left lung interstitial alveolar opacities with tiny effusion. Heart not enlarged.
[2021-11-24] MEDS ORDERED: Cordarone 200 MG PO SCH (10:00)
[2021-11-24] MEDS: PROTONIX 40 MG IV IV SCH (10:47)
[2021-11-24] MEDS: Paxil 20 MG PO SCH (10:47)
[2021-11-24] MEDS: Cardizem CD 180 MG PO SCH (10:47)
[2021-11-24] MEDS: FOLATE 1 MG PO SCH (10:47)
[2021-11-24] MEDS: Neurontin 100 MG PO SCH ×2 (10:47→21:11)
[2021-11-24] MEDS: ZOCOR 20MG PO SCH (10:47)
[2021-11-24] MEDS: VANCOCIN 500 MG VIAL*** 500 MG in Sodium Chloride 100ML MINI-BAG PLUS 100 ML IV SCH ×2 (10:53→21:16)
[2021-11-24] MEDS ORDERED: Cordarone 200 MG PO ONE (12:30)
--- NOTE | 2021-11-24 14:11 | PCM.NOTE ---
Date and Time: 11/24/21 1410 Subjective Assessment: still rapid heart rhythm - Review of Systems Constitutional: No Fever, No Chills Eyes: No Symptoms Ears, Nose, & Throat: No Symptoms Respiratory: No Cough, No Short Of Breath Cardiac: No Chest Pain, No Edema, No Syncope Abdominal/Gastrointestinal: No Abdominal Pain, No Nausea, No Vomiting, No Diarrhea Genitourinary Symptoms: No Dysuria Musculoskeletal: No Back Pain, No Neck Pain Skin: No Rash Neurological: No Dizziness, No Focal Weakness, No Sensory Changes Psychological: No Symptoms Endocrine: No Symptoms Hematologic/Lymphatic: No Symptoms Immunological/Allergic: No Symptoms Objective Exam General Appearance: no apparent distress, alert Neurologic Exam: alert, oriented x 3, cooperative, normal mood/affect, nml cerebellar function, sensation nml, No motor deficits Skin Exam: normal color, warm, dry Eye Exam: PERRL, EOMI, eyes nml inspection Ears, Nose, Throat Exam: normal ENT inspection, pharynx normal, moist mucous membranes Neck Exam: normal inspection, non-tender, supple, full range of motion Respiratory Exam: crackles/rales, rhonchi, wheezing, No respiratory distress Cardiovascular Exam: regular rate/rhythm, normal heart sounds Gastrointestinal/Abdomen Exam: soft, No tenderness, No mass Extremity Exam: normal inspection, normal range of motion Back Exam: normal inspection, normal range of motion, No CVA tenderness, No vertebral tenderness Pelvic Exam: deferred Rectal Exam: deferred OBJECTIVE DATA Vital Signs: Vital Signs - 24 hr Temp Pulse Resp BP BP Pulse Ox 11/24/21 13:00 126 H 21 114/83 92 L 11/24/21 12:00 125 H 27 H 103/73 92 L 11/24/21 11:00 97.1 F 125 H 24 108/90 91 L 11/24/21 10:21 130 H 24 91 L 11/24/21 10:00 116 H 20 108/90 89 L 11/24/21 09:00 114 H 24 103/66 94 L 11/24/21 08:00 86 19 95/65 98 11/24/21 07:00 97.1 F 91 H 19 96/68 95 11/24/21 06:00 89 14 94/67 96 11/24/21 05:57 76 16 95 11/24/21 05:00 81 16 94/67 94 L 11/24/21 04:05 89 18 90/66 11/24/21 04:00 82 16 92/62 93 L 11/24/21 03:05 88 18 81/60 11/24/21 03:00 97.5 F 96 H 18 81/60 93 L 11/24/21 02:09 87 18 96/60 95 11/24/21 00:48 97.6 F 97 H 18 90/61 97 11/23/21 23:55 94 H 11/23/21 23:50 99 H 17 91/56 99 11/23/21 23:00 120 H 17 93/65 100 11/23/21 21:58 135 H 32 H 95/62 99 11/23/21 21:00 121 H 24 97/55 98 11/23/21 20:33 147 H 28 H 94/72 11/23/21 20:30 130 H 28 H 97/65 11/23/21 20:00 97.9 F 115 H 27 H 97/56 88 L 11/23/21 18:45 103 H 22 86 L 11/23/21 18:00 119 H 24 99/68 96 11/23/21 17:00 21 110/76 85 L 11/23/21 16:36 99 H 23 92/61 11/23/21 16:00 119 H 11/23/21 15:00 104 H 26 H 97/54 89 L 11/23/21 14:59 102 H 16 96 Pain Assessment - Last Documented Pain Intensity 0 Pain Scale Used 0-10 Pain Scale Intake and Output: Intake & Output 11/22/21 11/23/21 11/24/21 11/25/21 11:59 11:59 11:59 11:59 Intake Total 1413 1320 1548 Output Total 800 550 700 Balance 613 770 848 Weight 48.3 kg 49.8 kg Lab Results: Lab Results-Last 24 Hours 11/23/21 11/23/21 11/24/21 Range/Units 17:08 21:47 04:50 Creatinine 1.44 H (0.52-1.04) mg/dL Estimated GFR 38.7 ML/MIN POC Glucometer 150 H 186 H (74 to 106) mg/dL 11/24/21 11/24/21 Range/Units 07:10 11:31 Creatinine (0.52-1.04) mg/dL Estimated GFR ML/MIN POC Glucometer 153 H 219 H (74 to 106) mg/dL Radiology Exams: Radiology Procedures Category Date Time Status Portable Chest [CHEST 1 VIEW (PORTABLE)] Urgent Exams 11/24/21 09:10 Completed Multi-Disciplinary Progress Notes: Multi-Disciplinary Progress Notes 11/24/21 12:28 Pharmacy Note by Dhruv Hunt Cultures reviewed. Vancomyicn should cover both staph and strep. No other antibiotics needed. Initialized on 11/24/21 12:28 - END OF NOTE 11/23/21 15:01 Respiratory Note by Alana Chong 1500 O2 SAT 96% ON 100%. FIO2 DECREASED TO 80% ON HHF Initialized on 11/23/21 15:01 - END OF NOTE Assessment/Plan (1) Thrombocytopenia Current Visit: Yes Status: Acute (2) Acute on chronic respiratory failure Current Visit: Yes Status: Acute Qualifiers: Respiratory failure complication: hypoxia and hypercapnia Qualified Code(s): J96.21 - Acute and chronic respiratory failure with hypoxia; J96.22 - Acute and chronic respiratory failure with hypercapnia Code(s): J96.20 - ACUTE AND CHR RESP FAILURE, UNSP W HYPOXIA OR HYPERCAPNIA (3) Acute renal failure Current Visit: Yes Status: Acute Qualifiers: Acute renal failure type: unspecified Qualified Code(s): N17.9 - Acute ki dney failure, unspecified (4) Elevated troponin Current Visit: Yes Status: Acute Code(s): R77.8 - OTHER SPECIFIED ABNORMALITIES OF PLASMA PROTEINS
[2021-11-24 14:14] LABS: INFLUENZA A NEGATIVE (NEGATIVE); INFLUENZA B NEGATIVE (NEGATIVE); RESPIRATORY SYNCTIAL VIRUS NEGATIVE (Negative); SARS-CoV-2 Xpert Express NEGATIVE (NEGATIVE)
[2021-11-24] MEDS ORDERED: Vibramycin 100 MG ONE (20:40)
[2021-11-24] MEDS ORDERED: Sterile H2O 10 ml IJ ONE (20:44)
[2021-11-24] MEDS: REMERON 30 MG PO SCH (21:11)
[2021-11-24] MEDS: Cordarone 200 MG PO SCH (21:12)
[2021-11-24] MEDS ORDERED: TROUGH DRUG LEVELS IJ ONE (21:30)
[2021-11-25] MEDS ORDERED: CARDIZEM DRIP 100 MG/100 ML D5W 100 ML IV ONE (02:16)
[2021-11-25] MEDS: CARDIZEM DRIP 100 MG/100 ML D5W 100 ML IV PRN ×4 (02:18→22:07)
[2021-11-25 05:30] LABS: Absolute Neutrophil Ct (ANC) 5.32 (1.4-6.9); Basophil (Absolute #) 0.01 (0-0.4); Eosinophil (Absolute #) 0 (0-0.5); Hematocrit 29.7 % (35-47); Hemoglobin 9.6 gm/dl (12.0-16.0); Lymphocyte (Absolute #) 0.14 (1.0-4.6); Lymphocytes % 2.5 % (24.0-44.0); Mean Cell Volume 105.3 fl (78-100); Mean Corpuscular Hgb Concent. 32.3 g/dl (32-36); Mean Platelet Volume 11.7 fl (7.5-11.0); Monocyte (Absolute #) 0.07 (0.0-1.3); Monocytes % 1.3 % (0.0-12.0); Red Blood Count 2.82 M/mm3 (4.1-5.4); Red Cell Distribution Width 17.1 % (11.5-14.0); White Blood Count 5.5 K/mm3 (4.0-10.5)
[2021-11-25] MEDS: Advair Hfa 115/21 Common canister IH SCH ×2 (05:30→18:56)
[2021-11-25 05:43] LABS: ALBUMIN 2.8 g/dL (3.5-5.0); ANION GAP 9.9 MEQ/L (5-15); BILIRUBIN,TOTAL 0.8 mg/dL (0.2-1.3); Calcium 8.2 mg/dL (8.4-10.2); Creatinine 1 1.22 mg/dL (0.52-1.04); EST GLOMERULAR FILTRATION RATE 46.9 ML/MIN; Total Protein 5.9 g/dL (6.3-8.2)
[2021-11-25] MEDS: solu-MEDROL IV SCH (05:46)
[2021-11-25] MEDS: DUONEB 0.5-3 MG/3 ml Neb IH SCH ×4 (05:58→18:56)
[2021-11-25 06:13] LABS: Platelet Count 30 K/mm3 (150-450)
[2021-11-25 07:21] LABS: Slide Review 1 YES
[2021-11-25] MEDS: Sodium Chloride 0.9% 1000 ML 1,000 ML IV SCH (08:16)
[2021-11-25] MEDS: Cardizem CD 180 MG PO SCH (08:35)
[2021-11-25] MEDS: Cordarone 200 MG PO SCH ×2 (08:35→21:17)
[2021-11-25] MEDS: PROTONIX 40 MG IV IV SCH (10:39)
[2021-11-25] MEDS: Neurontin 100 MG PO SCH ×2 (10:41→21:17)
[2021-11-25] MEDS: FOLATE 1 MG PO SCH (10:41)
[2021-11-25] MEDS: ZOCOR 20MG PO SCH (10:41)
[2021-11-25] MEDS: Paxil 20 MG PO SCH (10:41)
[2021-11-25] MEDS: VANCOCIN 500 MG VIAL*** 500 MG in Sodium Chloride 100ML MINI-BAG PLUS 100 ML IV SCH ×2 (11:14→23:01)
[2021-11-25] MEDS ORDERED: solu-MEDROL 60 MG, Sterile H2O 10 ml 2 ML IV SCH ×2 (12:00)
--- NOTE | 2021-11-25 17:15 | PCM.NOTE ---
Date and Time: 11/25/211712 Subjective Assessment: still very short of breath. - Review of Systems Constitutional: No Fever, No Chills Eyes: No Symptoms Ears, Nose, & Throat: No Symptoms Respiratory: Cough, Orthopnea, Short Of Breath, Wheezing Cardiac: Palpitations, Orthopnea, No Chest Pain, No Edema, No Syncope, No PND Abdominal/Gastrointestinal: No Abdominal Pain, No Nausea, No Vomiting, No Diarrhea Genitourinary Symptoms: No Dysuria Musculoskeletal: No Back Pain, No Neck Pain Skin: No Rash Neurological: No Dizziness, No Focal Weakness, No Sensory Changes Psychological: No Symptoms Endocrine: No Symptoms Hematologic/Lymphatic: No Symptoms Immunological/Allergic: No Symptoms Objective Exam General Appearance: no apparent distress, alert Neurologic Exam: alert, oriented x 3, cooperative, normal mood/affect, nml cerebellar function, sensation nml, No motor deficits Skin Exam: normal color, warm, dry Eye Exam: PERRL, EOMI, eyes nml inspection Ears, Nose, Throat Exam: normal ENT inspection, pharynx normal, moist mucous membranes Neck Exam: normal inspection, non-tender, supple, full range of motion Respiratory Exam: diminished breath sounds, accessory muscle use, prolonged expirations, crackles/rales, No lungs clear, No respiratory distress, No rhonchi, No wheezing Cardiovascular Exam: regular rate/rhythm, normal heart sounds Gastrointestinal/Abdomen Exam: soft, No tenderness, No mass Extremity Exam: normal inspection, normal range of motion Back Exam: normal inspection, normal range of motion, No CVA tenderness, No vertebral tenderness Pelvic Exam: deferred Rectal Exam: deferred OBJECTIVE DATA Vital Signs: Vital Signs - 24 hr Temp Pulse Resp BP BP Pulse Ox 11/25/21 15:00 108 H 22 121/93 95 11/25/21 14:44 118 H 28 H 94 L 11/25/21 14:00 86 21 106/76 95 11/25/21 13:00 119 H 23 114/83 94 L 11/25/21 12:28 84 22 92 L 11/25/21 12:00 97.8 F 152 H 24 105/91 91 L 11/25/21 11:00 120 H 22 106/78 92 L 11/25/21 10:00 156 H 23 119/78 93 L 11/25/21 09:00 137 H 29 H 118/63 90 L 11/25/21 08:30 120 H 16 113/81 11/25/21 08:00 130 H 25 H 113/81 92 L 11/25/21 07:58 126 H 11/25/21 06:45 107 H 24 87/64 93 L 11/25/21 06:43 105 H 19 91/64 11/25/21 05:42 105 H 19 92/63 11/25/21 05:30 89 26 H 91 L 11/25/21 04:35 89 21 98/71 97 11/25/21 04:34 86 21 98/71 11/25/21 04:00 86 21 97/62 11/25/21 03:35 83 18 105/75 11/25/21 03:33 83 11/25/21 03:18 18 11/25/21 02:46 90 18 97/62 11/25/21 02:45 90 18 122/70 11/25/21 02:18 115 H 16 96/70 11/25/21 01:31 93 H 18 97/66 11/25/21 01:30 111 H 20 97/66 97 11/25/21 00:47 90 20 91/70 11/25/21 00:42 91 H 20 104/68 11/25/21 00:00 88 14 91/58 95/71 93 L 11/24/21 23:55 109 H 11/24/21 22:41 80 20 96/71 99 11/24/21 22:40 92 H 20 96/71 11/24/21 22:08 119 H 18 102/71 11/24/21 21:39 96 H 18 124/71 11/24/21 21:28 160 H 18 110/80 11/24/21 21:00 83 18 90/67 11/24/21 20:55 92 H 18 11/24/21 20:43 16 11/24/21 20:10 85 18 103/67 11/24/21 20:00 87 20 90/67 95 11/24/21 19:43 94 H 20 88/68 11/24/21 19:28 102 H 24 90 L 11/24/21 19:00 94 H 18 92/70 11/24/21 18:00 115 H 21 105/72 94 L Pain Assessment - Last Documented Pain Intensity 0 Pain Scale Used 0-10 Pain Scale Intake and Output: Intake & Output 11/23/21 11/24/21 11/25/21 11/26/21 11:59 11:59 11:59 11:59 Intake Total 1320 1548 1766 Output Total 129 408 975 Balance 770 848 791 Weight 49.8 kg 52.9 kg Lab Results: Lab Results-Last 24 Hours 11/24/21 11/24/21 11/25/21 Range/Units 21:23 22:04 05:15 WBC 5.5 (4.0-10.5) K/mm3 RBC 2.82 L (4.1-5.4) M/mm3 Hgb 9.6 L (12.0-16.0) gm/dl Hct 29.7 L (35-47) % MCV 105.3 H (78-100) fl MCH 34.0 H (26-32) pg MCHC 32.3 (32-36) g/dl RDW 17.1 H (11.5-14.0) % Plt Count 30 L D (150-450) K/mm3 MPV 11.7 H (7.5-11.0) fl Gran % 96.0 H (36.0-66.0) % Eos # (Auto) 0 (0-0.5) Absolute Lymphs (auto) 0.14 L (1.0-4.6) Absolute Monos (auto) 0.07 (0.0-1.3) Lymphocytes % 2.5 L (24.0-44.0) % Monocytes % 1.3 (0.0-12.0) % Eosinophils % 0.0 (0.00-5.0) % Basophils % 0.2 (0.0-0.4) % Absolute Granulocytes 5.32 (1.4-6.9) Basophils # 0.01 (0-0.4) Sodium (137-145) mmol/L Potassium (3.5-5.1) mmol/L Chloride (98-107) mmol/L Carbon Dioxide (22-30) mmol/L Anion Gap (5-15) MEQ/L BUN (7-17) mg/dL Creatinine (0.52-1.04) mg/dL Estimated GFR ML/MIN Glucose (74-106) mg/dL POC Glucometer 126 H (74 to 106) mg/dL Calcium (8.4-10.2) mg/dL Total Bilirubin (0.2-1.3) mg/dL AST (14-36) U/L ALT (0-35) U/L Alkaline Phosphatase (38-126) U/L Serum Total Protein (6.3-8.2) g/dL Albumin (3.5-5.0) g/dL Vancomycin Trough 33.63 H (10-20) ug/mL Random Vancomycin ug/mL Slides for Path Review YES 11/25/21 11/25/21 11/25/21 Range/Units 05:15 06:51 09:45 WBC (4.0-10.5) K/mm3 RBC (4.1-5.4) M/mm3 Hgb (12.0-16.0) gm/dl Hct (35-47) % MCV (78-100) fl MCH (26-32) pg MCHC (32-36) g/dl RDW (11.5-14.0) % Plt Count (150-450) K/mm3 MPV (7.5-11.0) fl Gran % (36.0-66.0) % Eos # (Auto) (0-0.5) Absolute Lymphs (auto) (1.0-4.6) Absolute Monos (auto) (0.0-1.3) Lymphocytes % (24.0-44.0) % Monocytes % (0.0-12.0) % Eosinophils % (0.00-5.0) % Basophils % (0.0-0.4) % Absolute Granulocytes (1.4-6.9) Basophils # (0-0.4) Sodium 139 (137-145) mmol/L Potassium 4.0 (3.5-5.1) mmol/L Chloride 109 H (98-107) mmol/L Carbon Dioxide 24 (22-30) mmol/L Anion Gap 9.9 (5-15) MEQ/L BUN 51 H (7-17) mg/dL Creatinine 1.22 H (0.52-1.04) mg/dL Estimated GFR 46.9 ML/MIN Glucose 158 H (74-106) mg/dL POC Glucometer 156 H (74 to 106) mg/dL Calcium 8.2 L (8.4-10.2) mg/dL Total Bilirubin 0.80 (0.2-1.3) mg/dL AST 30 (14-36) U/L ALT 27 (0-35) U/L Alkaline Phosphatase 104 (38-126) U/L Serum Total Protein 5.9 L (6.3-8.2) g/dL Albumin 2.8 L (3.5-5.0) g/dL Vancomycin Trough (10-20) ug/mL Random Vancomycin 15.01 ug/mL Slides for Path Review 11/25/21 11/25/21 Range/Units 10:56 16:41 WBC (4.0-10.5) K/mm3 RBC (4.1-5.4) M/mm3 Hgb (12.0-16.0) gm/dl Hct (35-47) % MCV (78-100) fl MCH (26-32) pg MCHC (32-36) g/dl RDW (11.5-14.0) % Plt Count (150-450) K/mm3 MPV (7.5-11.0) fl Gran % (36.0-66.0) % Eos # (Auto) (0-0.5) Absolute Lymphs (auto) (1.0-4.6) Absolute Monos (auto) (0.0-1.3) Lymphocytes % (24.0-44.0) % Monocytes % (0.0-12.0) % Eosinophils % (0.00-5.0) % Basophils % (0.0-0.4) % Absolute Granulocytes (1.4-6.9) Basophils # (0-0.4) Sodium (137-145) mmol/L Potassium (3.5-5.1) mmol/L Chloride (98-107) mmol/L Carbon Dioxide (22-30) mmol/L Anion Gap (5-15) MEQ/L BUN (7-17) mg/dL Creatinine (0.52-1.04) mg/dL Estimated GFR ML/MIN Glucose (74-106) mg/dL POC Glucometer 213 H 241 H (74 to 106) mg/dL Calcium (8.4-10.2) mg/dL Total Bilirubin (0.2-1.3) mg/dL AST (14-36) U/L ALT (0-35) U/L Alkaline Phosphatase (38-126) U/L Serum Total Protein (6.3-8.2) g/dL Albumin (3.5-5.0) g/dL Vancomycin Trough (10-20) ug/mL Random Vancomycin ug/mL Slides for Path Review Radiology Exams: Radiology Procedures Category Date Time Status Portable Chest [CHEST 1 VIEW (PORTABLE)] Urgent Exams 11/24/21 09:10 Completed Multi-Disciplinary Progress Notes: Multi-Disciplinary Progress Notes 11/25/21 15:45 Nutrition Note by Sydni Mcginnis F/u Note: Heart healthy diet con't with 50-100% po intake. adm weight 45.4kg;current weight 52.9kg. Labs 11/25= BUN 51, Cr 1.22, glu 158, abl 2.8, hgb 9.6, hct 29.7, mcv 105.3. goal of po intake >=50% met and ongoing. Will con't to monitor and f/u prn. T.[email or web address] Mcginnis Initialized on 11/25/21 15:45 - END OF NOTE 11/25/21 07:17 Pharmacy Note by Dhruv Hunt Vancomycin trough unusually high. Level might have been drawn during infusion. Will recheck level this am and adjust dose as needed. Creatinine has improved. Initialized on 11/25/21 07:17 - END OF NOTE Assessment/Plan (1) PSVT (paroxysmal supraventricular tachycardia) Current Visit: Yes Status: Acute Assessment & Plan: on amiadarone Code(s): I47.1 - SUPRAVENTRICULAR TACHYCARDIA (2) Acute on chronic respiratory failure Current Visit: Yes Status: Acute Qualifiers: Respiratory failure complication: hypoxia and hypercapnia Qualified Code(s): J96.21 - Acute and chronic respiratory failure with hypoxia; J96.22 - Acute and chronic respiratory failure with hypercapnia Code(s): J96.20 - ACUTE AND CHR RESP FAILURE, UNSP W HYPOXIA OR HYPERCAPNIA (3) Thrombocytopenia Current Visit: Yes Status: Acute (4) Acute renal failure Current Visit: Yes Status: Acute Qualifiers: Acute renal failure type: unspecified Qualified Code(s): N17.9 - Acute kidney failure, unspecified (5) Elevated troponin Current Visit: Yes Status: Resolved Code(s): R77.8 - OTHER SPECIFIED ABNORMALITIES OF PLASMA PROTEINS (6) Pneumonia Current Visit: Yes Status: Acute Qualifiers: Pneumonia type: due to unspecified organism Laterality: bilateral Lung location: lower lobe of lung Qualified Code(s): J18.9 - Pneumonia, unspecified organism Code(s): J18.9 - PNEUMONIA, UNSPECIFIED ORGANISM
[2021-11-25] MEDS: solu-MEDROL 60 MG, Sterile H2O 10 ml 2 ML IV SCH ×2 (18:59)
[2021-11-25] MEDS: REMERON 30 MG PO SCH (21:17)
[2021-11-26] MEDS: solu-MEDROL 60 MG, Sterile H2O 10 ml 2 ML IV SCH ×10 (00:13→23:21)
[2021-11-26] MEDS: CARDIZEM DRIP 100 MG/100 ML D5W 100 ML IV PRN ×2 (04:26→11:16)
[2021-11-26 06:42] LABS: Creatinine 1 1.13 mg/dL (0.52-1.04); EST GLOMERULAR FILTRATION RATE 51.2 ML/MIN
[2021-11-26] MEDS: Advair Hfa 115/21 Common canister IH SCH ×2 (06:56→18:34)
[2021-11-26] MEDS: DUONEB 0.5-3 MG/3 ml Neb IH SCH ×4 (06:56→18:34)
[2021-11-26] MEDS: Sodium Chloride 0.9% 1000 ML 1,000 ML IV SCH ×2 (07:16→16:28)
[2021-11-26] MEDS: PROTONIX 40 MG IV IV SCH (09:07)
[2021-11-26] MEDS: ZOCOR 20MG PO SCH (09:07)
[2021-11-26] MEDS: Paxil 20 MG PO SCH (09:07)
[2021-11-26] MEDS: FOLATE 1 MG PO SCH (09:07)
[2021-11-26] MEDS: Neurontin 100 MG PO SCH ×2 (09:07→21:09)
[2021-11-26] MEDS: Cordarone 200 MG PO SCH ×3 (09:07→21:10)
[2021-11-26] MEDS: Cardizem CD 180 MG PO SCH (09:07)
[2021-11-26] MEDS: VANCOCIN 500 MG VIAL*** 500 MG in Sodium Chloride 100ML MINI-BAG PLUS 100 ML IV SCH ×2 (10:10→22:01)
[2021-11-26] MEDS ORDERED: solu-MEDROL ONE (10:50)
--- NOTE | 2021-11-26 17:39 | PCM.NOTE ---
Date and Time: 11/26/211736 Subjective Assessment: still very short of breath, tachcardia HR 130s - Review of Systems Constitutional: Lethargy, No Fever, No Chills Eyes: No Symptoms Ears, Nose, & Throat: No Symptoms Respiratory: Orthopnea, Short Of Breath, Wheezing, No Cough Cardiac: Palpitations, Orthopnea, PND, No Chest Pain, No Edema, No Syncope Abdominal/Gastrointestinal: No Abdominal Pain, No Nausea, No Vomiting, No Diarrhea Genitourinary Symptoms: No Dysuria Musculoskeletal: No Back Pain, No Neck Pain Skin: No Rash Neurological: No Dizziness, No Focal Weakness, No Sensory Changes Psychological: No Symptoms Endocrine: No Symptoms Hematologic/Lymphatic: No Symptoms Immunological/Allergic: No Symptoms Objective Exam General Appearance: no apparent distress, alert Neurologic Exam: alert, oriented x 3, cooperative, normal mood/affect, sensation nml, No motor deficits Skin Exam: normal color, warm, dry Eye Exam: PERRL, EOMI, eyes nml inspection Ears, Nose, Throat Exam: normal ENT inspection, pharynx normal, moist mucous membranes Neck Exam: normal inspection, non-tender, supple, full range of motion Respiratory Exam: diminished breath sounds, crackles/rales, rhonchi, wheezing, No respiratory distress Cardiovascular Exam: tachycardia Gastrointestinal/Abdomen Exam: soft, No tenderness, No mass Extremity Exam: normal inspection, normal range of motion Back Exam: normal inspection, normal range of motion, No CVA tenderness, No vertebral tenderness Pelvic Exam: deferred Rectal Exam: deferred OBJECTIVE DATA Vital Signs: Vital Signs - 24 hr Temp Pulse Resp BP BP Pulse Ox 11/26/21 14:30 158 H 24 94 L 11/26/21 12:16 110 H 11/26/21 12:00 97.4 F 110 H 23 93/77 95 11/26/21 11:00 110 H 24 99/71 98 11/26/21 10:40 139 H 24 98 11/26/21 10:00 99 H 21 101/56 94 L 11/26/21 09:00 101 H 21 95/63 93 L 11/26/21 08:00 97.6 F 121 H 23 107/73 91 L 11/26/21 07:20 118 H 11/26/21 06:59 96 H 23 93 L 11/26/21 06:38 90 21 95/75 11/26/21 06:36 91 H 24 95/75 11/26/21 05:47 94 H 20 87/66 11/26/21 05:45 106 H 22 95/64 88 L 11/26/21 05:26 18 11/26/21 05:02 143 H 21 95/77 11/26/21 04:34 111 H 18 91/62 11/26/21 04:32 101 H 19 91/62 99 11/26/21 04:26 112 H 23 106/68 11/26/21 03:52 97 H 11/26/21 03:51 99 H 16 105/74 11/26/21 03:50 108 H 16 105/74 11/26/21 02:46 97 H 14 101/75 11/26/21 02:41 155 H 14 101/75 11/26/21 02:18 97 H 14 103/69 11/26/21 01:47 104 H 16 85/69 95 11/26/21 01:02 156 H 16 96/80 11/26/21 00:46 108 H 15 92/61 93 L 11/26/21 00:12 127 H 16 78/66 11/26/21 00:01 119 H 11/25/21 23:44 115 H 14 100/79 97 11/25/21 23:07 18 11/25/21 23:00 69 12 99 11/25/21 22:53 65 18 95/64 95/64 11/25/21 22:07 126 H 16 95/72 11/25/21 21:48 97 H 19 108/74 11/25/21 21:43 102 H 24 88/46 11/25/21 21:22 85 20 97/69 11/25/21 21:00 99 H 22 96/71 94 L 11/25/21 20:00 155 H 19 103/76 95 11/25/21 19:59 95 H 24 100/69 11/25/21 18:57 95 H 22 96 11/25/21 18:48 98.0 F 78 22 100/79 95 11/25/21 18:00 90 24 107/73 95 Pain Assessment - Last Documented Pain Intensity 0 Pain Scale Used 0-10 Pain Scale Intake and Output: Intake & Output 11/24/21 11/25/21 11/26/21 11/27/21 11:59 11:59 11:59 11:59 Intake Total 1548 1766 1781 840 Output Total 700 795 850 450 Balance 842 491 931 390 Weight 52.9 kg 54.6 kg Lab Results: Lab Results-Last 24 Hours 11/25/21 11/26/21 11/26/21 Range/Units 21:06 04:45 08:09 Creatinine 1.13 H (0.52-1.04) mg/dL Estimated GFR 51.2 ML/MIN POC Glucometer 227 H 172 H (74 to 106) mg/dL 11/26/21 11/26/21 Range/Units 11:46 16:29 Creatinine (0.52-1.04) mg/dL Estimated GFR ML/MIN POC Glucometer 209 H 251 H (74 to 106) mg/dL Multi-Disciplinary Progress Notes: Multi-Disciplinary Progress Notes 11/26/21 09:20 Case Management Note by Lyubov Grier PATIENT STILL CRITICALLY ILL- PATIENT WILL NEED DC PLANS REASSESSED CLOSER TO TIME OF DC- PATIENT IS NORMALLY INDEPENDENT AT HOME WITH ADLS, SHE SHARES A HOME WITH HER SON AND WEARS 2L/NC 29/05 Initialized on 11/26/21 09:20 - END OF NOTE Assessment/Plan (1) Pneumonia Current Visit: Yes Status: Acute Qualifiers: Pneumonia type: due to unspecified organism Laterality: bilateral Lung location: lower lobe of lung Qualified Code(s): J18.9 - Pneumonia, unspecified organism Assessment & Plan: Chief Complaint Diagnosis weakness for 2-3 days Allergies Allergy/AdvReac Type Severity Reaction Status Date / Time Penicillins Allergy Intermediate Verified 11/20/21 11:06 Sulfa (Sulfonamide Allergy Intermediate Verified 11/20/21 11:06 Antibiotics) Vital Signs (Last 24 hours) Temp Pulse Resp BP BP Pulse Ox 11/26/21 14:30 158 H 24 94 L 11/26/21 12:16 110 H 11/26/21 12:00 97.4 F 110 H 23 93/77 95 11/26/21 11:00 110 H 24 99/71 98 11/26/21 10:40 139 H 24 98 11/26/21 10:00 99 H 21 101/56 94 L 11/26/21 09:00 101 H 21 95/63 93 L 11/26/21 08:00 97.6 F 121 H 23 107/73 91 L 11/26/21 07:20 118 H 11/26/21 06:59 96 H 23 93 L 11/26/21 06:38 90 21 95/75 11/26/21 06:36 91 H 24 95/75 11/26/21 05:47 94 H 20 87/66 11/26/21 05:45 106 H 22 95/64 88 L 11/26/21 05:26 18 11/26/21 05:02 143 H 21 95/77 11/26/21 04:34 111 H 18 91/62 11/26/21 04:32 101 H 19 91/62 99 11/26/21 04:26 112 H 23 106/68 11/26/21 03:52 97 H 11/26/21 03:51 99 H 16 105/74 11/26/21 03:50 108 H 16 105/74 11/26/21 02:46 97 H 14 101/75 11/26/21 02:41 155 H 14 101/75 11/26/21 02:18 97 H 14 103/69 11/26/21 01:47 104 H 16 85/69 95 11/26/21 01:02 156 H 16 96/80 11/26/21 00:46 108 H 15 92/61 93 L 11/26/21 00:12 127 H 16 78/66 11/26/21 00:01 119 H 11/25/21 23:44 115 H 14 100/79 97 11/25/21 23:07 18 11/25/21 23:00 69 12 99 11/25/21 22:53 65 18 95/64 95/64 11/25/21 22:07 126 H 16 95/72 11/25/21 21:48 97 H 19 108/74 11/25/21 21:43 102 H 24 88/46 11/25/21 21:22 85 20 97/69 11/25/21 21:00 99 H 22 96/71 94 L 11/25/21 20:00 155 H 19 103/76 95 11/25/21 19:59 95 H 24 100/69 11/25/21 18:57 95 H 22 96 11/25/21 18:48 98.0 F 78 22 100/79 95 11/25/21 18:00 90 24 107/73 95 Current Medications Generic Name Dose Route Start Last Admin Trade Name Freq PRN Reason Stop Dose Admin Acetaminophen 650 mg 11/20/21 15:07 11/22/21 13:59 Acetaminophen 325 Mg Tablet PO 12/20/21 15:06 650 mg Q4H PRN PRN Administration PAIN AND/OR FEVER Albuterol/Ipratropium 3 ml 11/20/21 15:07 11/26/21 14:30 Ipratropium/Albuterol Sulfate 3 Ml Ampul.Neb IH 12/20/21 15:06 3 ml QIDRT ESTRELLITA Administration Amiodarone HCl 200 mg 11/26/21 16:30 11/26/21 16:37 Amiodarone Hcl 200 Mg Tab PO 12/26/21 16:29 200 mg TID ESTRELLITA Administration Carvedilol 6.25 mg 11/26/21 22:00 Carvedilol 6.25 Mg Tablet PO 12/26/21 21:59 BID ESTRELLITA Methylprednisolone Sodium 0 mg 11/25/21 18:00 11/26/21 16:37 Succinate 60 mg/ Sterile Water IV 12/25/21 17:59 60 mg 2 ml Q6HT ESTRELLITA Administration Device 1 11/27/21 09:30 Therapuetic Drug Level Monitor Each IJ 11/27/21 09:31 1XONLY ONE Fluticasone Propionate 0 gm 11/20/21 16:42 Fluticasone Propionate 16 Gm Bottle Nasal [place] 12/20/21 16:41 DAILY PRN PRN ALLERGIES Folic Acid 1 mg 11/21/21 10:00 11/26/21 09:07 Folic Acid 1 Mg Tablet PO 12/21/21 09:59 1 mg DAILY ESTRELLITA Administration Gabapentin 100 mg 11/20/21 22:00 11/26/21 09:07 Gabapentin 100 Mg Capsule PO 12/20/21 21:59 100 mg BID ESTRELLITA Administration Sodium Chloride 1,000 mls @ 30 mls/hr 11/20/21 15:07 11/26/21 16:28 Sodium Chloride 0.9% 1000 Ml IV 12/20/21 15:06 30 mls/hr .Q24H ESTRELLITA Administration Vancomycin HCl 500 mg/ Sodium 100 mls @ 100 mls/hr 11/25/21 11:00 11/26/21 10:10 Chloride IV 12/25/21 10:59 100 mls/hr Q12H ESTRELLITA Administration Mirtazapine 30 mg 11/20/21 22:00 11/25/21 21:17 Mirtazapine 30 Mg Tablet PO 12/20/21 21:59 30 mg QHS ESTRELLITA Administration Pantoprazole Sodium 40 mg 11/21/21 10:00 11/26/21 09:07 Pantoprazole 40 Mg Vial IV 12/21/21 09:59 40 mg Q24H10 ESTRELLITA Administration Paroxetine HCl 20 mg 11/21/21 10:00 11/26/21 09:07 Paroxetine Hcl 20 Mg Tablet PO 12/21/21 09:59 20 mg DAILY ESTRELLITA Administration Fluticasone/Salmeterol 2 puff 11/20/21 19:00 11/26/21 06:56 Fluticasone/Salmeterol / - 120 Puff Common Canister IH 12/20/21 18:59 2 puff BIDRT ESTRELLITA Administration Simvastatin 20 mg 11/21/21 10:00 11/26/21 09:07 Simvastatin 20 Mg Tablet PO 12/21/21 09:59 20 mg DAILY ESTRELLITA Administration Discontinued Medications Generic Name Dose Route Start Last Admin Trade Name Freq PRN Reason Stop Dose Admin Albuterol/Ipratropium 3 ml 11/20/21 11:21 11/20/21 11:37 Ipratropium/Albuterol Sulfate 3 Ml Ampul.Neb IH 11/20/21 11:22 3 ml STAT ONE Administration Albuterol/Ipratropium Confirm 11/20/21 11:26 Ipratropium/Albuterol Sulfate 3 Ml Ampul.Neb Administered 11/20/21 11:27 Dose 3 ml IH .STK-MED ONE Amiodarone HCl 100 mg 11/24/21 10:00 11/24/21 09:47 Amiodarone Hcl 200 Mg Tab PO 12/24/21 09:59 100 mg BID ESTRELLITA Administration Amiodarone HCl 200 mg 11/24/21 12:20 11/26/21 09:07 Amiodarone Hcl 200 Mg Tab PO 12/24/21 09:59 200 mg BID ESTRELLITA Administration Amiodarone HCl 100 mg 11/24/21 12:30 11/24/21 12:45 Amiodarone Hcl 200 Mg Tab PO 11/24/21 12:31 100 mg ONCE ONE Administration Methylprednisolone Sodium 0 mg 11/20/21 11:21 11/20/21 11:27 Succinate 125 mg/ Sterile IV 11/20/21 11:22 125 mg Water 2 ml STAT ONE Administration Methylprednisolone Sodium 0 mg 11/20/21 18:00 Succinate 60 mg/ Sterile Water IV 12/20/21 17:59 2 ml Q6HT ESTRELLITA Methylprednisolone Sodium 0 mg 11/25/21 12:00 11/25/21 12:57 Succinate 60 mg/ Sterile Water IV 12/25/21 11:59 60 mg 2 ml Q6HT ESTRELLITA Administration Device 1 11/23/21 09:30 11/23/21 10:36 Therapuetic Drug Level Monitor Each IJ 11/23/21 09:31 Not Given 1XONLY ONE Device 1 11/24/21 21:30 11/26/21 07:16 Therapuetic Drug Level Monitor Each IJ 11/24/21 21:31 Not Given 1XONLY ONE Dexamethasone Sodium Phosphate 6 mg 11/22/21 20:02 11/22/21 20:10 Dexamethasone Sod Phosphate 10 Mg/Ml IV 11/22/21 20:03 6 mg STAT ONE Administration Dexamethasone Sodium Phosphate Confirm 11/22/21 20:06 Dexamethasone Sod Phosphate 4 Mg/Ml Ml Administered 11/22/21 20:07 Dose 8 mg .ROUTE .STK-MED ONE Diltiazem HCl 180 mg 11/21/21 10:00 11/26/21 09:07 Diltiazem Hcl 180 Mg Cap.Sr.24h PO 12/21/21 09:59 180 mg DAILY ESTRELLITA Administration Diltiazem HCl 5 mg 11/22/21 14:12 11/22/21 14:31 Diltiazem Hcl Iv 5 Mg/Ml Vial IV 11/22/21 14:13 5 mg STAT ONE Administration Doxycycline Hyclate Confirm 11/24/21 20:40 Doxycycline Hyclate 100 Mg Tablet Administered 11/24/21 20:41 Dose 100 mg .ROUTE .STK-MED ONE Levofloxacin/Dextrose 500 mg in 100 mls @ 100 mls/hr 11/20/21 12:16 11/20/21 13:42 Levofloxacin 500mg/100ml D5w IV 11/20/21 13:15 Infused STAT STA Infusion Levofloxacin/Dextrose Confirm 11/20/21 12:32 Levofloxacin 500mg/100ml D5w Administered 11/20/21 12:33 Dose 500 mg in 100 mls @ ud IV .STK-MED ONE Sodium Chloride 1,000 mls @ 100 mls/hr 11/20/21 12:45 11/20/21 14:16 Sodium Chloride 0.9% 1000 Ml IV 12/20/21 12:44 500 mls/hr .Q10H ESTRELLITA Infusion Sodium Chloride 500 mls @ 500 mls/hr 11/20/21 14:43 11/20/21 14:45 Sodium Chloride 0.9% 500 Ml IV 11/20/21 15:42 500 mls/hr .Q1H ONE Administration Sodium Chloride Confirm 11/20/21 14:45 Sodium Chloride 0.9% 500 Ml Administered 11/20/21 14:46 Dose 500 mls @ ud IV .STK-MED ONE Sodium Chloride Confirm 11/20/21 13:10 Sodium Chloride 0.9% 1000 Ml Administered 11/20/21 13:11 Dose 1,000 mls @ ud .ROUTE .STK-MED ONE Diltiazem HCl 100 mls @ 5 mls/hr 11/20/21 16:19 11/21/21 16:57 Cardizem Drip 100 Mg/100 Ml D5w IV 12/20/21 16:18 0 mg/hr .Q20H PRN 0 mls/hr HEART RATE/ A-FIB Titration Protocol 5 MG/HR Levofloxacin/Dextrose 250 mg in 50 mls @ 100 mls/hr 11/22/21 10:00 Levaquin 250mg/50ml D5w IV 12/22/21 09:59 Q48H ESTRELLITA Vancomycin HCl 500 mg/ Sodium 100 mls @ 100 mls/hr 11/21/21 10:00 11/23/21 10:44 Chloride IV 12/21/21 09:59 100 mls/hr Q24H10 ESTRELLITA Administration Sodium Chloride Confirm 11/22/21 16:14 Sodium Chloride 0.9% 500 Ml Administered 11/22/21 16:15 Dose 500 mls @ ud IV .STK-MED ONE Diltiazem HCl 100 mls @ 5 mls/hr 11/22/21 17:46 11/26/21 11:16 Cardizem Drip 100 Mg/100 Ml D5w IV 12/22/21 17:45 15 mg/hr .Q20H PRN 15 mls/hr HEART RATE/ A-FIB Administration Protocol 5 MG/HR Vancomycin HCl 500 mg/ Sodium 100 mls @ 100 mls/hr 11/23/21 22:00 11/24/21 21:16 Chloride IV 12/23/21 21:59 100 mls/hr Q12HT ESTRELLITA Administration Sterile Water Confirm 11/23/21 22:47 Sterile Water For Injection 20 Ml Administered 11/23/21 22:48 Dose 20 mls @ ud .ROUTE .STK-MED ONE Diltiazem HCl Confirm 11/25/21 02:16 Cardizem Drip 100 Mg/100 Ml D5w Administered 11/25/21 02:17 Dose 100 mls @ ud IV .STK-MED ONE Levofloxacin 250 mg 11/21/21 10:00 11/23/21 10:36 Levofloxacin 250 Mg Tab PO 12/21/21 09:59 250 mg DAILY ESTRELLITA Administration Methylprednisolone Sodium Succinate Confirm 11/20/21 11:26 Methylprednis Sod Succ 125 Mg/2 Ml Vial Administered 11/20/21 11:27 Dose 125 mg .ROUTE .STK-MED ONE Methylprednisolone Sodium Succinate 60 mg 11/20/21 18:00 11/25/21 05:46 Methylprednis Sod Succ 125 Mg/2 Ml Vial IV 12/20/21 17:59 60 mg Q6HT ESTRELLITA Administration Methylprednisolone Sodium Succinate Confirm 11/26/21 10:50 Methylprednis Sod Succ 125 Mg/2 Ml Vial Administered 11/26/21 10:51 Dose 125 mg .ROUTE .STK-MED ONE Miscellaneous Information 1 each 11/20/21 17:00 Medication Intervention 1 Each Each 12/20/21 16:59 .RN TO CHECK WITH PT [facility] Non-Formulary Medication 20 mg 11/21/21 10:00 Omeprazole [Omeprazole] PO 12/21/21 09:59 DAILY [facility] Non-Formulary Medication 1 each 11/21/21 08:56 11/21/21 11:11 Pharmacy Dose Request: Vancomycin 1 Each IV 11/21/21 08:57 1 each STAT STA Administration Non-Formulary Medication 1 each 11/21/21 08:57 11/21/21 11:12 Pharmacy Dosing Request [facility] 11/21/21 08:58 1 each STAT ONE Administration Prednisone 20 mg 11/20/21 22:00 Prednisone 20 Mg Tablet PO 12/20/21 21:59 BID [facility] Sterile Water Confirm 11/23/21 12:14 Water For Injection,Sterile 10 Ml Vial Administered 11/23/21 12:15 Dose 10 ml IJ .STK-MED ONE Sterile Water Confirm 11/24/21 20:44 Water For Injection,Sterile 10 Ml Vial Administered 11/24/21 20:45 Dose 10 ml IJ .STK-MED ONE Tiotropium [place] 1 ea 11/21/21 10:00 Tiotropium [place] 18 Mcg/Cap Inhaler IH 12/21/21 09:59 DAILY ESTRELLITA Intake & Output (Last 24 hours) 11/24/21 11/25/21 11/26/21 11/27/21 11:59 11:59 11:59 11:59 Intake Total 1548 1766 1781 840 Output Total 700 975 850 450 Balance 848 791 931 390 Weight 52.9 kg 54.6 kg Laboratory Results (Last 24 hours) 11/26/21 11/26/21 11/26/21 16:29 11:46 08:09 Creatinine Estimated GFR POC Glucometer 251 H 209 H 172 H 11/26/21 11/25/21 04:45 21:06 Creatinine 1.13 H Estimated GFR 51.2 POC Glucometer 227 H Orders (Last 24 hours) Category Date Time Status Tele-Health Consult ROUTINE Cons 11/26/21 12:17 Active CREATININE SERUM AM.LAB Lab 11/26/21 04:45 Completed POCT GLUCOSE Stat Lab 11/25/21 16:41 Completed POCT GLUCOSE Stat Lab 11/25/21 21:06 Completed POCT GLUCOSE Stat Lab 11/26/21 08:09 Completed POCT GLUCOSE Stat Lab 11/26/21 11:46 Completed POCT GLUCOSE Stat Lab 11/26/21 16:29 Completed Vancomycin, Trough Urgent Lab 11/27/21 09:30 Ordered Amiodarone HCl 200 mg [Cordarone 200 MG] Med 11/26/21 16:30 Active 200 mg PO TID Carvedilol 6.25 mg [Coreg 6.25 MG] Med 11/26/21 22:00 Active 6.25 mg PO BID Methylprednis Sod Succ 125 mg* [solu-MEDROL] Med 11/26/21 10:50 Discontinued 125 mg .ROUTE .STK-MED ONE Methylprednis Sod Succ 125 mg* [solu-MEDROL] 60 mg Med 11/25/21 18:00 Active Water For Injection,Sterile [Sterile H2O 10 ml] 2 ml IV Q6HT Therapuetic Drug Level Monitor [Trough Drug Levels] Med 11/27/21 09:30 Once 1 IJ 1XONLY ONE Transfer Order Routine Transfer 11/26/21 Completed Patient Care Notes (Last 24 hours) 11/26/21 15:50 Nursing Note by Philomena Dickens tele-cardiology consult completed with dr. mari. plan to resume home medication of coreg but @ 6.25mg bid. will dc cardizem and once platelets come up to above 100 can think about starting a blood thinner. talked with pharmacy about starting a second antibiotic and will discuss with dr. younger as well. Initialized on 11/26/21 15:50 - END OF NOTE 11/26/21 12:58 (created 11/26/21 13:10) Nursing Note by June Shrestha FAXED RECORDS FOR TELECARDIO Initialized on 11/26/21 13:10 - END OF NOTE 11/26/21 12:18 Nursing Note by Philomena Dickens pt continues in afib 150s, dr. younger at bedside, rounding on pt. cardizem drip dc'd and tele cardiology ordered for dr. moraes. Initialized on 11/26/21 12:18 - END OF NOTE 11/26/21 09:20 Case Management Note by Lyubov Grier PATIENT STILL CRITICALLY ILL- PATIENT WILL NEED DC PLANS REASSESSED CLOSER TO TIME OF DC- PATIENT IS NORMALLY INDEPENDENT AT HOME WITH ADLS, SHE SHARES A HOME WITH HER SON AND WEARS 2L/[place] 24/7 Initialized on 11/26/21 09:20 - END OF NOTE Code(s): J18.9 - PNEUMONIA, UNSPECIFIED ORGANISM (2) PSVT (paroxysmal supraventricular tachycardia) Current Visit: Yes Status: Acute Code(s): I47.1 - SUPRAVENTRICULAR TACHYCARDIA (3) Acute on chronic respiratory failure Current Visit: Yes Status: Acute Qualifiers: Respiratory failure complication: hypoxia and hypercapnia Qualified Code(s): J96.21 - Acute and chronic respiratory failure with hypoxia; J96.22 - Acute and chronic respiratory failure with hypercapnia Code(s): J96.20 - ACUTE AND CHR RESP FAILURE, UNSP W HYPOXIA OR HYPERCAPNIA (4) Thrombocytopenia Current Visit: Yes Status: Acute (5) Acute renal failure Current Visit: Yes Status: Acute Qualifiers: Acute renal failure type: unspecified Qualified Code(s): N17.9 - Acute kidney failure, unspecified (6) Elevated troponin Current Visit: Yes Status: Resolved Code(s): R77.8 - OTHER SPECIFIED ABNORMALITIES OF PLASMA PROTEINS
[2021-11-26] MEDS: REMERON 30 MG PO SCH (21:10)
[2021-11-26] MEDS: Coreg 6.25 MG PO SCH (21:10)
[2021-11-27] MEDS: solu-MEDROL 60 MG, Sterile H2O 10 ml 2 ML IV SCH ×8 (05:00→22:59)
[2021-11-27] MEDS: DUONEB 0.5-3 MG/3 ml Neb IH SCH ×4 (05:00→18:38)
[2021-11-27] MEDS: Advair Hfa 115/21 Common canister IH SCH ×2 (05:09→18:40)
[2021-11-27] MEDS ORDERED: TROUGH DRUG LEVELS IJ ONE (09:30)
[2021-11-27] MEDS: Cordarone 200 MG PO SCH ×3 (09:46→22:58)
[2021-11-27] MEDS: Paxil 20 MG PO SCH (09:46)
[2021-11-27] MEDS: Neurontin 100 MG PO SCH ×2 (09:46→22:58)
[2021-11-27] MEDS: FOLATE 1 MG PO SCH (09:46)
[2021-11-27] MEDS: ZOCOR 20MG PO SCH (09:46)
[2021-11-27] MEDS: Coreg 6.25 MG PO SCH ×2 (09:46→22:58)
[2021-11-27] MEDS: PROTONIX 40 MG IV IV SCH (09:46)
[2021-11-27] MEDS: VANCOCIN 500 MG VIAL*** 500 MG in Sodium Chloride 100ML MINI-BAG PLUS 100 ML IV SCH (10:57)
[2021-11-27 11:19] LABS: ALBUMIN 2.7 g/dL (3.5-5.0); ANION GAP 9.3 MEQ/L (5-15); BILIRUBIN,TOTAL 0.8 mg/dL (0.2-1.3); Calcium 8.2 mg/dL (8.4-10.2); Total Protein 5.7 g/dL (6.3-8.2)
[2021-11-27 11:23] LABS: Absolute Neutrophil Ct (ANC) 8.68 (1.4-6.9); Basophil (Absolute #) 0.06 (0-0.4); Eosinophil (Absolute #) 0 (0-0.5); Hematocrit 28.4 % (35-47); Lymphocyte (Absolute #) 0.08 (1.0-4.6); Lymphocytes % 0.9 % (24.0-44.0); Mean Cell Volume 106.4 fl (78-100); Mean Corpuscular Hemoglobin 33.7 pg (26-32); Mean Corpuscular Hgb Concent. 31.7 g/dl (32-36); Mean Platelet Volume 13.6 fl (7.5-11.0); Monocyte (Absolute #) 0.05 (0.0-1.3); Monocytes % 0.6 % (0.0-12.0); Neutrophil % 97.8 % (36.0-66.0); Platelet Count 60 K/mm3 (150-450); Red Blood Count 2.67 M/mm3 (4.1-5.4); White Blood Count 8.9 K/mm3 (4.0-10.5)
[2021-11-27 15:08] LABS: Slide Review 1 YES
[2021-11-27] MEDS: REMERON 30 MG PO SCH (22:58)
[2021-11-28] MEDS: Sodium Chloride 0.9% 1000 ML 1,000 ML IV SCH ×2 (01:17→17:41)
[2021-11-28] MEDS: VANCOCIN 500 MG VIAL*** 500 MG in Sodium Chloride 100ML MINI-BAG PLUS 100 ML IV SCH (06:13)
[2021-11-28] MEDS: solu-MEDROL 60 MG, Sterile H2O 10 ml 2 ML IV SCH ×6 (06:13→17:41)
[2021-11-28] MEDS: DUONEB 0.5-3 MG/3 ml Neb IH SCH ×4 (06:42→18:57)
--- NOTE | 2021-11-28 08:26 | XRAY ---
Indication: Respiratory failure. Comparison: November 24, 2021. Portable continues to demonstrate diffuse bilateral interstitial alveolar opacities right greater than left unchanged. Heart now enlarged again with bibasilar effusions/atelectasis, increased on the left concerning for cardiac decompensation versus fluid overload. Remaining chest unchanged.
[2021-11-28] MEDS: PROTONIX 40 MG IV IV SCH (09:03)
[2021-11-28] MEDS: Neurontin 100 MG PO SCH ×2 (09:03→22:09)
[2021-11-28] MEDS: Cordarone 200 MG PO SCH ×3 (09:03→22:09)
[2021-11-28] MEDS: Coreg 6.25 MG PO SCH ×2 (09:03→22:09)
[2021-11-28] MEDS: FOLATE 1 MG PO SCH (09:03)
[2021-11-28] MEDS: ZOCOR 20MG PO SCH (09:03)
[2021-11-28] MEDS: Paxil 20 MG PO SCH (09:03)
[2021-11-28] MEDS: Advair Hfa 115/21 Common canister IH SCH ×2 (11:38→19:02)
[2021-11-28] MEDS: TYLENOL 325 MG PO PRN (22:09)
[2021-11-28] MEDS: REMERON 30 MG PO SCH (22:09)
[2021-11-28] MEDS ORDERED: MORPHINE SULFATE 2 MG INJ IV ONE (22:24)
[2021-11-29] MEDS: solu-MEDROL 60 MG, Sterile H2O 10 ml 2 ML IV SCH ×8 (00:31→21:40)
[2021-11-29] MEDS: VANCOCIN 500 MG VIAL*** 500 MG in Sodium Chloride 100ML MINI-BAG PLUS 100 ML IV SCH (00:37)
[2021-11-29] MEDS: DUONEB 0.5-3 MG/3 ml Neb IH SCH ×3 (06:49→14:35)
[2021-11-29] MEDS: Advair Hfa 115/21 Common canister IH SCH (06:51)
--- NOTE | 2021-11-29 07:41 | PCM.NOTE ---
Date and Time: 11/29/21739 Subjective Assessment: still very short of breath - Review of Systems Constitutional: No Fever, No Chills Eyes: No Symptoms Ears, Nose, & Throat: No Symptoms Respiratory: No Cough, No Short Of Breath Cardiac: No Chest Pain, No Edema, No Syncope Abdominal/Gastrointestinal: No Abdominal Pain, No Nausea, No Vomiting, No Diarrhea Genitourinary Symptoms: No Dysuria Musculoskeletal: No Back Pain, No Neck Pain Skin: No Rash Neurological: No Dizziness, No Focal Weakness, No Sensory Changes Psychological: No Symptoms Endocrine: No Symptoms Hematologic/Lymphatic: No Symptoms Immunological/Allergic: No Symptoms Objective Exam General Appearance: no apparent distress, alert Neurologic Exam: alert, oriented x 3, cooperative, normal mood/affect, nml cerebellar function, sensation nml, No motor deficits Skin Exam: normal color, warm, dry Eye Exam: PERRL, EOMI, eyes nml inspection Ears, Nose, Throat Exam: normal ENT inspection, pharynx normal, moist mucous membranes Neck Exam: normal inspection, non-tender, supple, full range of motion Respiratory Exam: normal breath sounds, lungs clear, No respiratory distress Cardiovascular Exam: regular rate/rhythm, normal heart sounds Gastrointestinal/Abdomen Exam: soft, No tenderness, No mass Extremity Exam: normal inspection, normal range of motion Back Exam: normal inspection, normal range of motion, No CVA tenderness, No vertebral tenderness Pelvic Exam: deferred Rectal Exam: deferred OBJECTIVE DATA Vital Signs: Vital Signs - 24 hr Temp Pulse Resp BP Pulse Ox 11/29/21 07:16 85 L 11/29/21 07:09 87 L 11/29/21 06:52 113 H 20 94 L 11/29/21 04:00 97.5 F 116 H 12 132/88 96 11/29/21 00:00 98.3 F 119 H 20 122/94 90 L 11/28/21 20:00 97.7 F 128 H 20 110/73 91 L 11/28/21 18:57 126 H 22 91 L 11/28/21 16:00 97.5 F 140 H 20 110/81 86 L 11/28/21 15:12 125 H 22 91 L 11/28/21 11:36 133 H 22 88 L 11/28/21 11:14 97.3 F 113 H 21 127/90 99 11/28/21 08:39 135 H 22 97 11/28/21 08:00 96.4 F 130 H 20 107/92 88 L Pain Assessment - Last Documented Pain Intensity 8 Pain Scale Used FLACC Intake and Output: Intake & Output 11/26/21 11/27/21 11/28/21 11/29/21 11:59 11:59 11:59 11:59 Intake Total 1781 1277 1191 1060 Output Total 850 900 650 550 Balance 931 377 541 510 Weight 54.6 kg 56.8 kg 58 kg Lab Results: Lab Results-Last 24 Hours 11/28/21 Range/Units 07:54 POC Glucometer 160 H (74 to 106) mg/dL Radiology Exams: Radiology Procedures Category Date Time Status CHEST 1 VIEW (PORTABLE) DAILY Exams 11/28/21 07:00 Completed Assessment/Plan (1) Pneumothorax Current Visit: Yes Status: Acute Qualifiers: Pneumothorax type: spontaneous, primary Qualified Code(s): J93.11 - Primary spontaneous pneumothorax Assessment & Plan: Chief Complaint Diagnosis weakness for 2-3 days Allergies Allergy/AdvReac Type Severity Reaction Status Date / Time Penicillins Allergy Intermediate Verified 11/20/21 11:06 Sulfa (Sulfonamide Allergy Intermediate Verified 11/20/21 11:06 Antibiotics) Vital Signs (Last 24 hours) Temp Pulse Resp BP BP Pulse Ox 11/29/21 17:00 76 8 L 61/48 92 L 11/29/21 15:30 75 9 L 74/52 11/29/21 15:05 74 6 L 11/29/21 14:51 76 8 L 96 11/29/21 13:55 74 13 89/63 97 11/29/21 13:40 78 15 90/62 96 11/29/21 13:25 89 10 L 90/67 96 11/29/21 13:05 78 10 L 89/63 92 L 11/29/21 12:18 96.3 F 84 13 148/94 118/80 91 L 11/29/21 12:00 96.3 F 84 13 130/81 90 L 11/29/21 10:56 84 13 91 L 11/29/21 08:00 97.3 F 117 H 25 H 148/94 88 L 11/29/21 07:16 85 L 11/29/21 07:09 87 L 11/29/21 06:52 113 H 20 94 L 11/29/21 04:00 97.5 F 116 H 12 132/88 96 11/29/21 00:00 98.3 F 119 H 20 122/94 90 L 11/28/21 20:00 97.7 F 128 H 20 110/73 91 L 11/28/21 18:57 126 H 22 91 L Current Medications Generic Name Dose Route Start Last Admin Trade Name Freq PRN Reason Stop Dose Admin Acetaminophen 650 mg 11/20/21 15:07 11/29/21 08:08 Acetaminophen 325 Mg Tablet PO 12/20/21 15:06 650 mg Q4H PRN PRN Administration PAIN AND/OR FEVER Albuterol/Ipratropium 3 ml 11/20/21 15:07 11/29/21 14:35 Ipratropium/Albuterol Sulfate 3 Ml Ampul.Neb IH 12/20/21 15:06 3 ml QIDRT ESTRELLITA Administration Amiodarone HCl 200 mg 11/26/21 16:30 11/29/21 16:29 Amiodarone Hcl 200 Mg Tab PO 12/26/21 16:29 Not Given TID ESTRELLITA Carvedilol 6.25 mg 11/26/21 22:00 11/29/21 16:30 Carvedilol 6.25 Mg Tablet PO 12/26/21 21:59 Not Given BID ESTRELLITA Methylprednisolone Sodium 0 mg 11/25/21 18:00 11/29/21 16:31 Succinate 60 mg/ Sterile Water IV 12/25/21 17:59 Not Given 2 ml Q6HT ESTRELLITA Fluticasone Propionate 0 gm 11/20/21 16:42 Fluticasone Propionate 16 Gm Bottle Nasal [place] NS 12/20/21 16:41 DAILY PRN PRN ALLERGIES Folic Acid 1 mg 11/21/21 10:00 11/29/21 16:30 Folic Acid 1 Mg Tablet PO 12/21/21 09:59 Not Given DAILY ESTRELLITA Gabapentin 100 mg 11/20/21 22:00 11/29/21 16:30 Gabapentin 100 Mg Capsule PO 12/20/21 21:59 Not Given BID ESTRELLITA Sodium Chloride 1,000 mls @ 30 mls/hr 11/20/21 15:07 11/28/21 17:41 Sodium Chloride 0.9% 1000 Ml IV 12/20/21 15:06 30 mls/hr .Q24H ESTRELLITA Administration Vancomycin HCl 500 mg/ Sodium 100 mls @ 66.667 mls/hr 11/28/21 06:00 11/29/21 00:37 Chloride IV 12/28/21 05:59 66.667 mls/hr Q18H ESTRELLITA Administration Mirtazapine 30 mg 11/20/21 22:00 11/28/21 22:09 Mirtazapine 30 Mg Tablet PO 12/20/21 21:59 30 mg QHS ESTRELLITA Administration Morphine Sulfate/Sodium Chloride 30 mg 11/29/21 15:24 Morphine Sulfate/0.9% Nacl/Pf 30 Mg/30 Ml Modular Home [employer] Member.Vial IV 12/04/21 15:23 PRN PRN PAIN Pantoprazole Sodium 40 mg 11/21/21 10:00 11/29/21 11:26 Pantoprazole 40 Mg Vial IV 12/21/21 09:59 40 mg Q24H10 ESTRELLITA Administration Paroxetine HCl 20 mg 11/21/21 10:00 11/29/21 16:30 Paroxetine Hcl 20 Mg Tablet PO 12/21/21 09:59 Not Given DAILY ESTRELLITA Fluticasone/Salmeterol 2 puff 11/20/21 19:00 11/29/21 06:51 Fluticasone/Salmeterol 115/21 - 120 Puff Common Canister IH 12/20/21 18:59 2 puff BIDRT ESTRELLITA Administration Simvastatin 20 mg 11/21/21 10:00 11/29/21 16:31 Simvastatin 20 Mg Tablet PO 12/21/21 09:59 Not Given DAILY ESTRELLITA Discontinued Medications Generic Name Dose Route Start Last Admin Trade Name Freq PRN Reason Stop Dose Admin Albuterol/Ipratropium 3 ml 11/20/21 11:21 11/20/21 11:37 Ipratropium/Albuterol Sulfate 3 Ml Ampul.Neb IH 11/20/21 11:22 3 ml STAT ONE Administration Albuterol/Ipratropium Confirm 11/20/21 11:26 Ipratropium/Albuterol Sulfate 3 Ml Ampul.Neb Administered 11/20/21 11:27 Dose 3 ml IH .STK-MED ONE Amiodarone HCl 100 mg 11/24/21 10:00 11/24/21 09:47 Amiodarone Hcl 200 Mg Tab PO 12/24/21 09:59 100 mg BID ESTRELLITA Administration Amiodarone HCl 200 mg 11/24/21 12:20 11/26/21 09:07 Amiodarone Hcl 200 Mg Tab PO 12/24/21 09:59 200 mg BID ESTRELLITA Administration Amiodarone HCl 100 mg 11/24/21 12:30 11/24/21 12:45 Amiodarone Hcl 200 Mg Tab PO 11/24/21 12:31 100 mg ONCE ONE Administration Methylprednisolone Sodium 0 mg 11/20/21 11:21 11/20/21 11:27 Succinate 125 mg/ Sterile IV 11/20/21 11:22 125 mg Water 2 ml STAT ONE Administration Methylprednisolone Sodium 0 mg 11/20/21 18:00 Succinate 60 mg/ Sterile Water IV 12/20/21 17:59 2 ml Q6HT ESTRELLITA Methylprednisolone Sodium 0 mg 11/25/21 12:00 11/25/21 12:57 Succinate 60 mg/ Sterile Water IV 12/25/21 11:59 60 mg 2 ml Q6HT ESTRELLITA Administration Device 1 11/23/21 09:30 11/23/21 10:36 Therapuetic Drug Level Monitor Each IJ 11/23/21 09:31 Not Given 1XONLY ONE Device 1 11/24/21 21:30 11/26/21 07:16 Therapuetic Drug Level Monitor Each IJ 11/24/21 21:31 Not Given 1XONLY ONE Device 1 11/27/21 09:30 11/27/21 10:57 Therapuetic Drug Level Monitor Each IJ 11/27/21 09:31 1 1XONLY ONE Administration Device 1 11/29/21 17:30 Therapuetic Drug Level Monitor Each IJ 11/29/21 17:31 1XONLY ONE Dexamethasone Sodium Phosphate 6 mg 11/22/21 20:02 11/22/21 20:10 Dexamethasone Sod Phosphate 10 Mg/Ml IV 11/22/21 20:03 6 mg STAT ONE Administration Dexamethasone Sodium Phosphate Confirm 11/22/21 20:06 Dexamethasone Sod Phosphate 4 Mg/Ml Ml Administered 11/22/21 20:07 Dose 8 mg .ROUTE .STK-MED ONE Diltiazem HCl 180 mg 11/21/21 10:00 11/26/21 09:07 Diltiazem Hcl 180 Mg Cap.Sr.24h PO 12/21/21 09:59 180 mg DAILY ESTRELLITA Administration Diltiazem HCl 5 mg 11/22/21 14:12 11/22/21 14:31 Diltiazem Hcl Iv 5 Mg/Ml Vial IV 11/22/21 14:13 5 mg STAT ONE Administration Doxycycline Hyclate Confirm 11/24/21 20:40 Doxycycline Hyclate 100 Mg Tablet Administered 11/24/21 20:41 Dose 100 mg .ROUTE .STK-MED ONE Levofloxacin/Dextrose 500 mg in 100 mls @ 100 mls/hr 11/20/21 12:16 11/20/21 13:42 Levofloxacin 500mg/100ml D5w IV 11/20/21 13:15 Infused STAT STA Infusion Levofloxacin/Dextrose Confirm 11/20/21 12:32 Levofloxacin 500mg/100ml D5w Administered 11/20/21 12:33 Dose 500 mg in 100 mls @ ud IV .STK-MED ONE Sodium Chloride 1,000 mls @ 100 mls/hr 11/20/21 12:45 11/20/21 14:16 Sodium Chloride 0.9% 1000 Ml IV 12/20/21 12:44 500 mls/hr .Q10H ESTRELLITA Infusion Sodium Chloride 500 mls @ 500 mls/hr 11/20/21 14:43 11/20/21 14:45 Sodium Chloride 0.9% 500 Ml IV 11/20/21 15:42 500 mls/hr .Q1H ONE Administration Sodium Chloride Confirm 11/20/21 14:45 Sodium Chloride 0.9% 500 Ml Administered 11/20/21 14:46 Dose 500 mls @ ud IV .STK-MED ONE Sodium Chloride Confirm 11/20/21 13:10 Sodium Chloride 0.9% 1000 Ml Administered 11/20/21 13:11 Dose 1,000 mls @ ud .ROUTE .STK-MED ONE Diltiazem HCl 100 mls @ 5 mls/hr 11/20/21 16:19 11/21/21 16:57 Cardizem Drip 100 Mg/100 Ml D5w IV 12/20/21 16:18 0 mg/hr .Q20H PRN 0 mls/hr HEART RATE/ A-FIB Titration Protocol 5 MG/HR Levofloxacin/Dextrose 250 mg in 50 mls @ 100 mls/hr 11/22/21 10:00 Levaquin 250mg/50ml D5w IV 12/22/21 09:59 Q48H ESTRELLITA Vancomycin HCl 500 mg/ Sodium 100 mls @ 100 mls/hr 11/21/21 10:00 11/23/21 10:44 Chloride IV 12/21/21 09:59 100 mls/hr Q24H10 ESTRELLITA Administration Sodium Chloride Confirm 11/22/21 16:14 Sodium Chloride 0.9% 500 Ml Administered 11/22/21 16:15 Dose 500 mls @ ud IV .STK-MED ONE Diltiazem HCl 100 mls @ 5 mls/hr 11/22/21 17:46 11/26/21 11:16 Cardizem Drip 100 Mg/100 Ml D5w IV 12/22/21 17:45 15 mg/hr .Q20H PRN 15 mls/hr HEART RATE/ A-FIB Administration Protocol 5 MG/HR Vancomycin HCl 500 mg/ Sodium 100 mls @ 100 mls/hr 11/23/21 22:00 11/24/21 21:16 Chloride IV 12/23/21 21:59 100 mls/hr Q12HT ESTRELLITA Administration Sterile Water Confirm 11/23/21 22:47 Sterile Water For Injection 20 Ml Administered 11/23/21 22:48 Dose 20 mls @ ud .ROUTE .STK-MED ONE Diltiazem HCl Confirm 11/25/21 02:16 Cardizem Drip 100 Mg/100 Ml D5w Administered 11/25/21 02:17 Dose 100 mls @ ud IV .STK-MED ONE Vancomycin HCl 500 mg/ Sodium 100 mls @ 100 mls/hr 11/25/21 11:00 11/27/21 10:57 Chloride IV 12/25/21 10:59 100 mls/hr Q12H ESTRELLITA Administration Levofloxacin 250 mg 11/21/21 10:00 11/23/21 10:36 Levofloxacin 250 Mg Tab PO 12/21/21 09:59 250 mg DAILY ESTRELLITA Administration Lidocaine HCl Confirm 11/29/21 12:25 Lidocaine Hcl/Pf 1 % 30 Ml Pf Sdv Administered 11/29/21 12:26 Dose 30 ml IJ .STK-MED ONE Methylprednisolone Sodium Succinate Confirm 11/20/21 11:26 Methylprednis Sod Succ 125 Mg/2 Ml Vial Administered 11/20/21 11:27 Dose 125 mg .ROUTE .STK-MED ONE Methylprednisolone Sodium Succinate 60 mg 11/20/21 18:00 11/25/21 05:46 Methylprednis Sod Succ 125 Mg/2 Ml Vial IV 12/20/21 17:59 60 mg Q6HT ESTRELLITA Administration Methylprednisolone Sodium Succinate Confirm 11/26/21 10:50 Methylprednis Sod Succ 125 Mg/2 Ml Vial Administered 11/26/21 10:51 Dose 125 mg .ROUTE .STK-MED ONE Miscellaneous Information 1 each 11/20/21 17:00 Medication Intervention 1 Each Each 12/20/21 16:59 .RN TO CHECK WITH PT ESTRELLITA Morphine Sulfate 2 mg 11/28/21 22:24 11/28/21 22:33 Morphine Sulfate 2 Mg/Ml Inj IV 11/28/21 22:25 2 mg 1XONLY ONE Administration Morphine Sulfate 4 mg 11/29/21 08:50 11/29/21 09:00 Morphine Sulfate 4 Mg/Ml Injection IV 12/04/21 08:49 4 mg Q4H PRN PRN Administration PAIN Non-Formulary Medication 20 mg 11/21/21 10:00 Omeprazole [Omeprazole] PO 12/21/21 09:59 DAILY ESTRELLITA Non-Formulary Medication 1 each 11/21/21 08:56 11/21/21 11:11 Pharmacy Dose Request: Vancomycin 1 Each IV 11/21/21 08:57 1 each STAT STA Administration Non-Formulary Medication 1 each 11/21/21 08:57 11/21/21 11:12 Pharmacy Dosing Request 11/21/21 08:58 1 each STAT ONE Administration Prednisone 20 mg 11/20/21 22:00 Prednisone 20 Mg Tablet PO 12/20/21 21:59 BID ESTRELLITA Sterile Water Confirm 11/23/21 12:14 Water For Injection,Sterile 10 Ml Vial Administered 11/23/21 12:15 Dose 10 ml IJ .STK-MED ONE Sterile Water Confirm 11/24/21 20:44 Water For Injection,Sterile 10 Ml Vial Administered 11/24/21 20:45 Dose 10 ml IJ .STK-MED ONE Tiotropium Lawrence 1 ea 11/21/21 10:00 Tiotropium Lawrence 18 Mcg/Cap Inhaler IH 12/21/21 09:59 DAILY ESTRELLITA Intake & Output (Last 24 hours) 11/27/21 11/28/21 11/29/21 11/30/21 11:59 11:59 11:59 11:59 Intake Total 1277 1191 1060 Output Total 900 650 550 Balance 377 541 510 Weight 56.8 kg 58 kg 59.2 kg 59.2 kg Laboratory Results (Last 24 hours) 11/29/21 11/29/21 10:13 10:13 WBC 11.5 H RBC 3.50 L Hgb 12.3 Hct 38.0 MCV 108.6 H MCH 35.1 H MCHC 32.4 RDW 17.4 H Plt Count 72 L MPV 11.6 H Segmented Neutrophils 93 H Band Neutrophils 7 H Platelet Estimate DECREASED RBC Morphology NORMAL Sodium 140 Potassium 5.4 H Chloride 110 H Carbon Dioxide 26 Anion Gap 9.5 BUN 55 H Creatinine 1.29 H Estimated GFR 43.9 Glucose 203 H Calcium 8.0 L Magnesium 2.1 Total Bilirubin 0.80 AST 22 ALT 27 Alkaline Phosphatase 115 Serum Total Protein 5.9 L Albumin 2.9 L Orders (Last 24 hours) Category Date Time Status CHEST 1 VIEW (PORTABLE) Routine Exams 11/29/21 Completed CHEST 1 VIEW (PORTABLE) Routine Exams 11/30/21 08:00 Ordered CHEST 1 VIEW (PORTABLE) Urgent Exams 11/29/21 08:52 Completed FLUORO GUIDE NEEDLE PLACEMENT Routine Exams 11/29/21 Completed CBC W DIFF Urgent Lab 11/29/21 10:13 Completed CMP Urgent Lab 11/29/21 10:13 Completed MAG [MAGNESIUM] Urgent Lab 11/29/21 10:13 Completed Manual Differential NC Urgent Lab 11/29/21 10:13 Completed Vancomycin, Trough Urgent Lab 11/29/21 17:30 Ordered Lidocaine HCl/PF 1% 30 ML [Xylocaine 1% Vial 30 ML Med 11/29/21 12:25 Discontinued PF] 30 ml IJ .STK-MED ONE Morphine Sulfate 2 mg Inj Med 11/28/21 22:24 Discontinued 2 mg IV 1XONLY ONE Morphine Sulfate 4 mg Inj Med 11/29/21 08:50 Discontinued 4 mg IV Q4H PRN PRN Morphine Sulfate/0.9% NaCl/Pf [Morphine 30 mg/30 ml MANAGER MERCHANDISE Med 11/29/21 15:24 Active ] 30 mg IV PRN PRN Therapuetic Drug Level Monitor [Trough Drug Levels] Med 11/29/21 17:30 Discontinued 1 IJ 1XONLY ONE Patient Care Notes (Last 24 hours) 11/29/21 15:05 (created 11/29/21 15:37) Nursing Note by Liseth Tiwari Called Dr Younger with updated patient condition. Resp down. Remains non- responsive. BP 80's/50's. Orders to take off bipap and put on hiflow and start Morphine MANAGER MERCHANDISE. No other orders at this time. Initialized on 11/29/21 15:37 - END OF NOTE 11/29/21 13:25 (created 11/29/21 13:27) Nursing Note by June Shrestha. PATIENT BACK FROM SURGERY Initialized on 11/29/21 13:27 - END OF NOTE 11/29/21 13:05 (created 11/29/21 15:35) Nursing Note by Liseth Tiwari Pt from OR. Drsg R chest c/d/i. Chest tube intact. Set up to 40 suction. Patient not responding at this time. Legs sl mottled. Hr back in SR. HR 78 Res[ 10 Sat 92% on bipap. BP 89/63 Initialized on 11/29/21 15:35 - END OF NOTE 11/29/21 12:31 (created 11/29/21 12:30) Nursing Note by June Shrestha. PATIENT TAKEN TO SURGERY Initialized on 11/29/21 12:30 - END OF NOTE 11/29/21 12:18 Case Management Note by [facility], STATES KEEP HER UPDATED WITH PATIENT OXYGEN REQUIREMENTS AND IF ABLE TO WEAN PATIENT'S OXYGEN DOWN ENOUGH TO GET PATIENT HOME WITH HOSPICE CARE. Initialized on 11/29/21 12:18 - END OF NOTE 11/29/21 10:11 Nursing Note by Liseth Tiwari Dr. called regarding pain with pt, order recieved for Morphine 4 mg IV now, given with good reo Addendum entered by Liseth Tiwari RN 11/29/21 10:13: relief of patient. Dr. Younger orde3 Addendum entered by Liseth Tiwari, DASHAWN 11/29/21 10:14: Dr. Younger ordered CXR and williams Addendum entered by Liseth Tiwari RN 11/29/21 10:15: labs. Radiology called with report on CXR with R pneumotjhorax with 30-40%. Dr younger ordered Chest tube and said to check with Radiology and ER. They are not able to do. Patient family unsure about getting the Chest tube and want to wait to speak with MD. Dr Younger aware and will speak with family at rounds. Initialized on 11/29/21 10:11 - END OF NOTE 11/28/21 22:20 (created 11/29/21 06:19) Nursing Note by Blank Cardona Patient complaining of back pain, requesting pain medication. Dr. Crespo was called at [id number], new order given for Morphine 2mg IV push once Initialized on 11/29/21 06:19 - END OF NOTE Code(s): J93.9 - PNEUMOTHORAX, UNSPECIFIED (2) Pneumonia Current Visit: Yes Status: Acute Qualifiers: Pneumonia type: due to unspecified organism Laterality: bilateral Lung location: lower lobe of lung Qualified Code(s): J18.9 - Pneumonia, unspecified organism Code(s): J18.9 - PNEUMONIA, UNSPECIFIED ORGANISM (3) PSVT (paroxysmal supraventricular tachycardia) Current Visit: Yes Status: Acute Code(s): I47.1 - SUPRAVENTRICULAR TACHYCARDIA (4) Acute on chronic respiratory failure Current Visit: Yes Status: Acute Qualifiers: Respiratory failure complication: hypoxia and hypercapnia Qualified Cod e(s): J96.21 - Acute and chronic respiratory failure with hypoxia; J96.22 - Acute and chronic respiratory failure with hypercapnia Code(s): J96.20 - ACUTE AND CHR RESP FAILURE, UNSP W HYPOXIA OR HYPERCAPNIA (5) Thrombocytopenia Current Visit: Yes Status: Acute (6) Acute renal failure Current Visit: Yes Status: Acute Qualifiers: Acute renal failure type: unspecified Qualified Code(s): N17.9 - Acute kidney failure, unspecified (7) Elevated troponin Current Visit: Yes Status: Resolved Code(s): R77.8 - OTHER SPECIFIED ABNORMALITIES OF PLASMA PROTEINS
[2021-11-29] MEDS: TYLENOL 325 MG PO PRN (08:08)
[2021-11-29] MEDS ORDERED: MORPHINE SULFATE 4 MG INJ IV PRN (08:50)
--- NOTE | 2021-11-29 09:59 | XRAY ---
Indication: Low oxygenation. Comparison: One day earlier. Portable chest demonstrates new right sided pneumothorax greatest in the apex, approximately 30-40%. Heart and mediastinal structures within normal limits and not shifted. Remaining lungs again demonstrates diffuse bilateral interstitial opacities with new right lung atelectasis secondary to pneumothorax. Comment: Telephone report was given to the patient's floor nurse, Anusha at 0954 hrs. on November 29, 2021.
[2021-11-29 10:32] LABS: Hemoglobin 12.3 gm/dl (12.0-16.0); Mean Cell Volume 108.6 fl (78-100); Mean Corpuscular Hemoglobin 35.1 pg (26-32); Mean Corpuscular Hgb Concent. 32.4 g/dl (32-36); Mean Platelet Volume 11.6 fl (7.5-11.0); Platelet Count 72 K/mm3 (150-450); Red Cell Distribution Width 17.4 % (11.5-14.0); White Blood Count 11.5 K/mm3 (4.0-10.5)
[2021-11-29 11:09] LABS: ALBUMIN 2.9 g/dL (3.5-5.0); ANION GAP 9.5 MEQ/L (5-15); BILIRUBIN,TOTAL 0.8 mg/dL (0.2-1.3); Creatinine 1 1.29 mg/dL (0.52-1.04); EST GLOMERULAR FILTRATION RATE 43.9 ML/MIN; MAGNESIUM 2.1 mg/dL (1.6-2.3); Potassium 5.4 mmol/L (3.5-5.1); Total Protein 5.9 g/dL (6.3-8.2)
[2021-11-29] MEDS: PROTONIX 40 MG IV IV SCH (11:26)
[2021-11-29] MEDS ORDERED: Xylocaine 1% Vial 30 ML PF IJ ONE (12:25)
--- NOTE | 2021-11-29 13:28 | XRAY ---
Indication: Chest tube placement. Comparison: None Intraoperative fluoroscopy provided for 1 second. Single digital spot image submitted for interpretation demonstrates right upper lung chest tube with tip not included in [id number], presumed apex. Correlate with intraoperative findings/report.
--- NOTE | 2021-11-29 13:30 | CONS ---
CONSULT DATE: 11/29/2021 HISTORY: This is a 66-year-old with history of chronic obstructive pulmonary disease on home oxygen, increasing shortness of breath in the hospital on BiPAP struggling to breathe. Treated by Dr. Borja. They are thinking about making her comfort measures as she has developed 30-40% pneumothorax on the right. Dr. Borja asked me to put an urgent chest tube in. She has low platelets. General risk of bleeding and infection, risk of bronchopleural fistula, pneumothorax, risk of mortality but not limited to and consent was obtained. PAST MEDICAL HISTORY: Coronary artery disease, myocardial infarction, chronic obstructive pulmonary disease, arthritis, depression. PAST SURGICAL HISTORY: Shoulder surgery. Back surgery. History is taken from the chart as she is in a somnolent altered mental state and cannot answer questions. MEDICATIONS: Prior admission: Atorvastatin, carvedilol, fluticasone, gabapentin, leflunomide, mirtazapine, omeprazole, paroxetine, prednisone, Spiriva. ALLERGIES: NKDA. FAMILY HISTORY: Negative in regards to this problem. SOCIAL HISTORY: No smoking or alcohol abuse. REVIEW OF SYSTEMS: Not able to obtain directly from the patient currently. PHYSICAL EXAMINATION: GENERAL: A chronically ill female, somnolent on BiPAP in chronic respiratory failure. HEENT: Sclera nonicteric. CHEST: Equal excursion. CVS: Regular rhythm and pulse. ABDOMEN: Nondistended. EXTREMITIES: No cyanosis. NEURO: Somnolent. PSYCH: Unable to evaluate. IMPRESSION: Respiratory failure, chronic obstructive pulmonary disease. The family is planning on making her comfort measures. Dr. Borja however has requested this urgent chest tube to try to make her more comfortable. General risk of bleeding or infection, pneumothorax, risk of bronchopleural fistula, risk of mortality but not limited to. Consent obtained. Will proceed to the OR when OR time is available.
--- NOTE | 2021-11-29 13:52 | OP ---
SURGERY DATE/TIME: 11/29/2021 1238 PREOPERATIVE DIAGNOSIS: Advanced chronic obstructive pulmonary disease, respiratory failure, need for urgent right chest tube placement right pneumothorax. POSTOPERATIVE DIAGNOSIS: Advanced chronic obstructive pulmonary disease, respiratory failure, need for urgent right chest tube placement right pneumothorax. PROCEDURE: Open right thoracostomy tube placement (28 Chinese) with C-arm fluoroscopy. SURGEON: Dr. Pardeep Roblero. PARTS ADMINISTRATOR: Kayla Ta, Medical Student III. ANESTHESIA: Local 1% lidocaine. ESTIMATED BLOOD LOSS: Minimal. INDICATIONS: As noted above. The patient had a loculated pneumothorax on the right. Dr. Borja requested urgent chest tube. Consent had been obtained by nursing staff. DESCRIPTION OF PROCEDURE AND FINDINGS: She is taken to the operating room. Prepped and draped in the usual sterile fashion. She is on BiPAP. 1% Lidocaine local was infiltrated. A transverse incision made. Dissection carried deep down into the pleural space and came over the top of the rib and anterior top part of the chest. This was loculated and some trapped lung inferiorly but the chest tube was in the free thoracic space. The tube is fluctuating. It was placed on Pleurovac 20 cm negative suction. C-arm fluoroscopy confirmed the tube was in location. Again, the lung has not fully expanded yet. It may be trapped. It may not come up all the way. The tube is in place so the pneumothorax does not enlarge further. There is no family here to discuss the findings with at the moment. I will check the waiting room.
--- NOTE | 2021-11-29 14:28 | XRAY ---
1 second of fluoroscopy was used in surgery for a chest tube placement in the right lung.
[2021-11-29 15:39] LABS: BAND 7 % (0.0-2.0); Neutrophils 93 % (36.0-66.0); Platelet Estimate DECREASED (NORMAL); Total Cells Counted 100
[2021-11-29] MEDS: MORPHINE 30 MG/30 ML PCA IV PRN ×2 (16:15→18:06)
[2021-11-29] MEDS: Cordarone 200 MG PO SCH ×2 (16:29→21:43)
[2021-11-29] MEDS: Neurontin 100 MG PO SCH ×2 (16:30→21:44)
[2021-11-29] MEDS: Coreg 6.25 MG PO SCH ×2 (16:30→21:44)
[2021-11-29] MEDS: FOLATE 1 MG PO SCH (16:30)
[2021-11-29] MEDS: Paxil 20 MG PO SCH (16:30)
[2021-11-29] MEDS: ZOCOR 20MG PO SCH (16:31)
[2021-11-29] MEDS ORDERED: TROUGH DRUG LEVELS IJ ONE (17:30)
[2021-11-29] MEDS: REMERON 30 MG PO SCH (21:44)
[2021-11-30] MEDS: VANCOCIN 500 MG VIAL*** 500 MG in Sodium Chloride 100ML MINI-BAG PLUS 100 ML IV SCH ×2 (03:40→11:06)
[2021-11-30] MEDS ORDERED: solu-MEDROL ONE (05:10)
[2021-11-30] MEDS: solu-MEDROL 60 MG, Sterile H2O 10 ml 2 ML IV SCH ×6 (05:11→11:03)
--- NOTE | 2021-11-30 09:29 | XRAY ---
Indication: Chest tube. Comparison: One day earlier. Portable chest demonstrates new right chest tube with tip projecting over apex. Right pneumothorax has improved with approximately 10% pneumothorax still present. Remaining chest unchanged again demonstrating diffuse consolidating/nonconsolidating bilateral airspace disease. Heart not enlarged.
[2021-11-30] MEDS: PROTONIX 40 MG IV IV SCH (09:48)
[2021-11-30] MEDS: Paxil 20 MG PO SCH (09:49)
[2021-11-30] MEDS: Neurontin 100 MG PO SCH (09:49)
[2021-11-30] MEDS: FOLATE 1 MG PO SCH (09:49)
[2021-11-30] MEDS: ZOCOR 20MG PO SCH (09:50)
[2021-11-30] MEDS: Coreg 6.25 MG PO SCH (09:50)
[2021-11-30] MEDS: Cordarone 200 MG PO SCH (09:50)
[2021-11-30] MEDS: MORPHINE 30 MG/30 ML PCA IV PRN (14:21)
--- NOTE | 2021-11-30 17:08 | PCM.NOTE ---
Date and Time: 11/30/21 1705 Subjective Assessment: unresponsive, - Review of Systems All Other Systems: Unable due to condition Objective Exam General Appearance: severe distress Skin Exam: dry Eye Exam: other (pinpoint pupils) Respiratory Exam: diminished breath sounds, accessory muscle use, prolonged expirations, crackles/rales, rhonchi, wheezing Cardiovascular Exam: tachycardia, capillary refill >3 sec OBJECTIVE DATA Vital Signs: Vital Signs - 24 hr Temp Pulse Resp BP Pulse Ox 11/30/21 15:00 95.8 F 96 H 5 L 63/46 77 L 11/30/21 14:21 92 L 11/30/21 12:23 92 L 11/30/21 11:00 97.1 F 72 10 L 78/64 89 L 11/30/21 07:00 87 17 98/63 92 L 11/30/21 03:00 96.9 F 141 H 23 89 L 11/29/21 23:00 96.2 F 98 H 10 L 93/67 95 11/29/21 19:26 96.1 F 79 10 L 76/49 95 11/29/21 18:43 94 L 11/29/21 18:06 91 L Pain Assessment - Last Documented Pain Intensity 0 Pain Scale Used 0-10 Pain Scale Intake and Output: Intake & Output 11/28/21 11/29/21 11/30/21 12/01/21 11:59 11:59 11:59 11:59 Intake Total 1191 1060 665 Output Total 650 550 725 300 Balance 541 510 -60 -300 Weight 58 kg 59.2 kg 59.2 kg Radiology Exams: Radiology Procedures Category Date Time Status CHEST 1 VIEW (PORTABLE) Routine Exams 11/29/21 Completed CHEST 1 VIEW (PORTABLE) Routine Exams 11/30/21 08:00 Completed CHEST 1 VIEW (PORTABLE) Urgent Exams 11/29/21 08:52 Completed FLUORO GUIDE NEEDLE PLACEMENT Routine Exams 11/29/21 Completed Portable chest demonstrates new right chest tube with tip projecting over apex. Right pneumothorax has improved with approximately 10% pneumothorax still present. Remaining chest unchanged again demonstrating diffuse consolidating/nonconsolidating bilateral airspace disease. Heart not enlarged. Multi-Disciplinary Progress Notes: Multi-Disciplinary Progress Notes 11/30/21 15:25 Nutrition Note by RaySydni F/u Note: Note heart healthy diet order con't with poor po intake. Note pt declining. Urgent chest tube placed, pt unresponsive. Will con't to monitor and f/u prn. ABEBE Cronin Initialized on 11/30/21 15:25 - END OF NOTE 11/30/21 09:31 Case Management Note by Bethany Gonzalez SPOKE WITH LIDNA FROM [facility], UPDATED ON PATIENT CURRENT STATUS AND CONDITION. STATES SHE WILL KEEP UPDATED TO SEE IF PATIENT WOULD BE ABLE TO GO HOME WITH THEIR CARE AT SOME POINT. Initialized on 11/30/21 09:31 - END OF NOTE Assessment/Plan (1) Pneumothorax Current Visit: Yes Status: Acute Qualifiers: Pneumothorax type: spontaneous, primary Qualified Code(s): J93.11 - Primary spontaneous pneumothorax Assessment & Plan: Patient is unresponsive, will continue comfort measures Code(s): J93.9 - PNEUMOTHORAX, UNSPECIFIED (2) Pneumonia Current Visit: Yes Status: Acute Qualifiers: Pneumonia type: due to unspecified organism Laterality: bilateral Lung location: lower lobe of lung Qualified Code(s): J18.9 - Pneumonia, unspecified organism Code(s): J18.9 - PNEUMONIA, UNSPECIFIED ORGANISM (3) PSVT (paroxysmal supraventricular tachycardia) Current Visit: Yes Status: Acute Code(s): I47.1 - SUPRAVENTRICULAR TACHYCARDIA (4) Acute on chronic respiratory failure Current Visit: Yes Status: Acute Qualifiers: Respiratory failure complication: hypoxia and hypercapnia Qualified Code(s): J96.21 - Acute and chronic respiratory failure with hypoxia; J96.22 - Acute and chronic respiratory failure with hypercapnia Code(s): J96.20 - ACUTE AND CHR RESP FAILURE, UNSP W HYPOXIA OR HYPERCAPNIA (5) Thrombocytopenia Current Visit: Yes Status: Acute (6) Acute renal failure Current Visit: Yes Status: Acute Qualifiers: Acute renal failure type: unspecified Qualified Code(s): N17.9 - Acute kidney failure, unspecified (7) Elevated troponin Current Visit: Yes Status: Resolved Code(s): R77.8 - OTHER SPECIFIED ABNORMALITIES OF PLASMA PROTEINS
[2021-11-30 19:44] VITALS: O2SAT 82
[2021-11-30 20:21] VITALS: BP 53/42; PULSE 92
[2021-12-01] MEDS: Sodium Chloride 0.9% 1000 ML 1,000 ML IV SCH (00:42)
--- NOTE | 2021-12-01 12:49 | PCM.DS ---
Discharge Summary Date of Admission: 11/20/21 14:54 Admitting Physician: DEBI IGNACIO Consults: Consults on Case 11/26/21 12:17 Tele-Health Consult ROUTINE Primary Care Provider: MARVIN AGUILAR Allergies Allergies Penicillins Allergy (Intermediate, Verified 11/20/21 11:06) Sulfa (Sulfonamide Antibiotics) Allergy (Intermediate, Verified 11/20/21 11:06) Hospital Summary - Hospital Course Hospital Course: Chief Complaint Diagnosis weakness for 2-3 days Allergies Allergy/AdvReac Type Severity Reaction Status Date / Time Penicillins Allergy Intermediate Verified 11/20/21 11:06 Sulfa (Sulfonamide Allergy Intermediate Verified 11/20/21 11:06 Antibiotics) Vital Signs (Last 24 hours) Temp Pulse Resp BP Pulse Ox 11/30/21 19:00 99.0 F 92 H 9 L 53/42 82 L 11/30/21 18:35 82 L 11/30/21 18:21 83 L 11/30/21 15:00 95.8 F 96 H 5 L 63/46 77 L 11/30/21 14:21 92 L Current Medications Discontinued Medications Generic Name Dose Route Start Last Admin Trade Name Freq PRN Reason Stop Dose Admin Acetaminophen 650 mg 11/20/21 15:07 11/29/21 08:08 Acetaminophen 325 Mg Tablet PO 12/20/21 15:06 650 mg Q4H PRN PRN Administration PAIN AND/OR FEVER Albuterol/Ipratropium 3 ml 11/20/21 11:21 11/20/21 11:37 Ipratropium/Albuterol Sulfate 3 Ml Ampul.Neb 11/20/21 11:22 3 ml STAT ONE Administration Albuterol/Ipratropium Confirm 11/20/21 11:26 Ipratropium/Albuterol Sulfate 3 Ml Ampul.Neb Administered 11/20/21 11:27 Dose 3 ml IH .STK-MED ONE Albuterol/Ipratropium 3 ml 11/20/21 15:07 11/29/21 14:35 Ipratropium/Albuterol Sulfate 3 Ml Ampul.Neb IH 12/20/21 15:06 3 ml QIDRT ESTRELLITA Administration Amiodarone HCl 100 mg 11/24/21 10:00 11/24/21 09:47 Amiodarone Hcl 200 Mg Tab PO 12/24/21 09:59 100 mg BID ESTRELLITA Administration Amiodarone HCl 200 mg 11/24/21 12:20 11/26/21 09:07 Amiodarone Hcl 200 Mg Tab PO 12/24/21 09:59 200 mg BID ESTRELLITA Administration Amiodarone HCl 100 mg 11/24/21 12:30 11/24/21 12:45 Amiodarone Hcl 200 Mg Tab PO 11/24/21 12:31 100 mg ONCE ONE Administration Amiodarone HCl 200 mg 11/26/21 16:30 11/30/21 09:50 Amiodarone Hcl 200 Mg Tab PO 12/26/21 16:29 Not Given TID ESTRELLITA Carvedilol 6.25 mg 11/26/21 22:00 11/30/21 09:50 Carvedilol 6.25 Mg Tablet PO 12/26/21 21:59 Not Given BID ESTRELLITA Methylprednisolone Sodium 0 mg 11/20/21 11:21 11/20/21 11:27 Succinate 125 mg/ Sterile IV 11/20/21 11:22 125 mg Water 2 ml STAT ONE Administration Methylprednisolone Sodium 0 mg 11/20/21 18:00 Succinate 60 mg/ Sterile Water IV 12/20/21 17:59 2 ml Q6HT ESTRELLITA Methylprednisolone Sodium 0 mg 11/25/21 12:00 11/25/21 12:57 Succinate 60 mg/ Sterile Water IV 12/25/21 11:59 60 mg 2 ml Q6HT ESTRELLITA Administration Methylprednisolone Sodium 0 mg 11/25/21 18:00 11/30/21 11:03 Succinate 60 mg/ Sterile Water IV 12/25/21 17:59 60 mg 2 ml Q6HT ESTRELLITA Administration Device 1 11/23/21 09:30 11/23/21 10:36 Therapuetic Drug Level Monitor Each IJ 11/23/21 09:31 Not Given 1XONLY ONE Device 1 11/24/21 21:30 11/26/21 07:16 Therapuetic Drug Level Monitor Each IJ 11/24/21 21:31 Not Given 1XONLY ONE Device 1 11/27/21 09:30 11/27/21 10:57 Therapuetic Drug Level Monitor Each IJ 11/27/21 09:31 1 1XONLY ONE Administration Device 1 11/29/21 17:30 11/29/21 21:38 Therapuetic Drug Level Monitor Each IJ 11/29/21 17:31 1 1XONLY ONE Administration Dexamethasone Sodium Phosphate 6 mg 11/22/21 20:02 11/22/21 20:10 Dexamethasone Sod Phosphate 10 Mg/Ml IV 11/22/21 20:03 6 mg STAT ONE Administration Dexamethasone Sodium Phosphate Confirm 11/22/21 20:06 Dexamethasone Sod Phosphate 4 Mg/Ml Ml Administered 11/22/21 20:07 Dose 8 mg .ROUTE .STK-MED ONE Diltiazem HCl 180 mg 11/21/21 10:00 11/26/21 09:07 Diltiazem Hcl 180 Mg Cap.Sr.24h PO 12/21/21 09:59 180 mg DAILY ESTRELLITA Administration Diltiazem HCl 5 mg 11/22/21 14:12 11/22/21 14:31 Diltiazem Hcl Iv 5 Mg/Ml Vial IV 11/22/21 14:13 5 mg STAT ONE Administration Doxycycline Hyclate Confirm 11/24/21 20:40 Doxycycline Hyclate 100 Mg Tablet Administered 11/24/21 20:41 Dose 100 mg .ROUTE .STK-MED ONE Fluticasone Propionate 0 gm 11/20/21 16:42 Fluticasone Propionate 16 Gm Bottle Nasal [place] NS 12/20/21 16:41 DAILY PRN PRN ALLERGIES Folic Acid 1 mg 11/21/21 10:00 11/30/21 09:49 Folic Acid 1 Mg Tablet PO 12/21/21 09:59 Not Given DAILY ESTRELLITA Gabapentin 100 mg 11/20/21 22:00 11/30/21 09:49 Gabapentin 100 Mg Capsule PO 12/20/21 21:59 Not Given BID ESTRELLITA Levofloxacin/Dextrose 500 mg in 100 mls @ 100 mls/hr 11/20/21 12:16 11/20/21 13:42 Levofloxacin 500mg/100ml D5w IV 11/20/21 13:15 Infused STAT STA Infusion Levofloxacin/Dextrose Confirm 11/20/21 12:32 Levofloxacin 500mg/100ml D5w Administered 11/20/21 12:33 Dose 500 mg in 100 mls @ ud IV .STK-MED ONE Sodium Chloride 1,000 mls @ 100 mls/hr 11/20/21 12:45 11/20/21 14:16 Sodium Chloride 0.9% 1000 Ml IV 12/20/21 12:44 500 mls/hr .Q10H ESTRELLITA Infusion Sodium Chloride 500 mls @ 500 mls/hr 11/20/21 14:43 11/20/21 14:45 Sodium Chloride 0.9% 500 Ml IV 11/20/21 15:42 500 mls/hr .Q1H ONE Administration Sodium Chloride Confirm 11/20/21 14:45 Sodium Chloride 0.9% 500 Ml Administered 11/20/21 14:46 Dose 500 mls @ ud IV .STK-MED ONE Sodium Chloride Confirm 11/20/21 13:10 Sodium Chloride 0.9% 1000 Ml Administered 11/20/21 13:11 Dose 1,000 mls @ ud .ROUTE .STK-MED ONE Sodium Chloride 1,000 mls @ 30 mls/hr 11/20/21 15:07 12/01/21 00:42 Sodium Chloride 0.9% 1000 Ml IV 12/20/21 15:06 Not Given .Q24H ESTRELLITA Diltiazem HCl 100 mls @ 5 mls/hr 11/20/21 16:19 11/21/21 16:57 Cardizem Drip 100 Mg/100 Ml D5w IV 12/20/21 16:18 0 mg/hr .Q20H PRN 0 mls/hr HEART RATE/ A-FIB Titration Protocol 5 MG/HR Levofloxacin/Dextrose 250 mg in 50 mls @ 100 mls/hr 11/22/21 10:00 Levaquin 250mg/50ml D5w IV 12/22/21 09:59 Q48H ESTRELLITA Vancomycin HCl 500 mg/ Sodium 100 mls @ 100 mls/hr 11/21/21 10:00 11/23/21 10:44 Chloride IV 12/21/21 09:59 100 mls/hr Q24H10 ESTRELLITA Administration Sodium Chloride Confirm 11/22/21 16:14 Sodium Chloride 0.9% 500 Ml Administered 11/22/21 16:15 Dose 500 mls @ ud IV .STK-MED ONE Diltiazem HCl 100 mls @ 5 mls/hr 11/22/21 17:46 11/26/21 11:16 Cardizem Drip 100 Mg/100 Ml D5w IV 12/22/21 17:45 15 mg/hr .Q20H PRN 15 mls/hr HEART RATE/ A-FIB Administration Protocol 5 MG/HR Vancomycin HCl 500 mg/ Sodium 100 mls @ 100 mls/hr 11/23/21 22:00 11/24/21 21:16 Chloride IV 12/23/21 21:59 100 mls/hr Q12HT ESTRELLITA Administration Sterile Water Confirm 11/23/21 22:47 Sterile Water For Injection 20 Ml Administered 11/23/21 22:48 Dose 20 mls @ ud .ROUTE .STK-MED ONE Diltiazem HCl Confirm 11/25/21 02:16 Cardizem Drip 100 Mg/100 Ml D5w Administered 11/25/21 02:17 Dose 100 mls @ ud IV .STK-MED ONE Vancomycin HCl 500 mg/ Sodium 100 mls @ 100 mls/hr 11/25/21 11:00 11/27/21 10:57 Chloride IV 12/25/21 10:59 100 mls/hr Q12H ESTRELLITA Administration Vancomycin HCl 500 mg/ Sodium 100 mls @ 66.667 mls/hr 11/28/21 06:00 11/30/21 11:06 Chloride IV 12/28/21 05:59 66.667 mls/hr Q18H ESTRELLITA Administration Levofloxacin 250 mg 11/21/21 10:00 11/23/21 10:36 Levofloxacin 250 Mg Tab PO 12/21/21 09:59 250 mg DAILY ESTRELLITA Administration Lidocaine HCl Confirm 11/29/21 12:25 Lidocaine Hcl/Pf 1 % 30 Ml Pf Sdv Administered 11/29/21 12:26 Dose 30 ml IJ .STK-MED ONE Methylprednisolone Sodium Succinate Confirm 11/20/21 11:26 Methylprednis Sod Succ 125 Mg/2 Ml Vial Administered 11/20/21 11:27 Dose 125 mg .ROUTE .STK-MED ONE Methylprednisolone Sodium Succinate 60 mg 11/20/21 18:00 11/25/21 05:46 Methylprednis Sod Succ 125 Mg/2 Ml Vial IV 12/20/21 17:59 60 mg Q6HT ESTRELLITA Administration Methylprednisolone Sodium Succinate Confirm 11/26/21 10:50 Methylprednis Sod Succ 125 Mg/2 Ml Vial Administered 11/26/21 10:51 Dose 125 mg .ROUTE .STK-MED ONE Methylprednisolone Sodium Succinate Confirm 11/30/21 05:10 Methylprednis Sod Succ 125 Mg/2 Ml Vial Administered 11/30/21 05:11 Dose 125 mg .ROUTE .STK-MED ONE Mirtazapine 30 mg 11/20/21 22:00 11/29/21 21:44 Mirtazapine 30 Mg Tablet PO 12/20/21 21:59 Not Given QHS [facility] Miscellaneous Information 1 each 11/20/21 17:00 Medication Intervention 1 Each Each 12/20/21 16:59 .RN TO CHECK WITH PT ESTRELLITA Morphine Sulfate 2 mg 11/28/21 22:24 11/28/21 22:33 Morphine Sulfate 2 Mg/Ml Inj IV 11/28/21 22:25 2 mg 1XONLY ONE Administration Morphine Sulfate 4 mg 11/29/21 08:50 11/29/21 09:00 Morphine Sulfate 4 Mg/Ml Injection IV 12/04/21 08:49 4 mg Q4H PRN PRN Administration PAIN Morphine Sulfate/Sodium Chloride 30 mg 11/29/21 15:24 11/30/21 14:21 Morphine Sulfate/0.9% Nacl/Pf 30 Mg/30 Ml Profile Saw Operator.Vial IV 12/04/21 15:23 30 mg PRN PRN Administration PAIN Non-Formulary Medication 20 mg 11/21/21 10:00 Omeprazole [Omeprazole] PO 12/21/21 09:59 DAILY ESTRELLITA Non-Formulary Medication 1 each 11/21/21 08:56 11/21/21 11:11 Pharmacy Dose Request: Vancomycin 1 Each IV 11/21/21 08:57 1 each STAT STA Administration Non-Formulary Medication 1 each 11/21/21 08:57 11/21/21 11:12 Pharmacy Dosing Request 11/21/21 08:58 1 each STAT ONE Administration Pantoprazole Sodium 40 mg 11/21/21 10:00 11/30/21 09:48 Pantoprazole 40 Mg Vial IV 12/21/21 09:59 40 mg Q24H10 ESTRELLITA Administration Paroxetine HCl 20 mg 11/21/21 10:00 11/30/21 09:49 Paroxetine Hcl 20 Mg Tablet PO 12/21/21 09:59 Not Given DAILY ESTRELLITA Prednisone 20 mg 11/20/21 22:00 Prednisone 20 Mg Tablet PO 12/20/21 21:59 BID ESTRELLITA Fluticasone/Salmeterol 2 puff 11/20/21 19:00 11/29/21 06:51 Fluticasone/Salmeterol 115/21 - 120 Puff Common Canister 12/20/21 18:59 2 puff BIDRT ESTRELLITA Administration Simvastatin 20 mg 11/21/21 10:00 11/30/21 09:50 Simvastatin 20 Mg Tablet PO 12/21/21 09:59 Not Given DAILY ESTRELLITA Sterile Water Confirm 11/23/21 12:14 Water For Injection,Sterile 10 Ml Vial Administered 11/23/21 12:15 Dose 10 ml IJ .STK-MED ONE Sterile Water Confirm 11/24/21 20:44 Water For Injection,Sterile 10 Ml Vial Administered 11/24/21 20:45 Dose 10 ml IJ .STK-MED ONE Tiotropium Banner 1 ea 11/21/21 10:00 Tiotropium Banner 18 Mcg/Cap Inhaler IH 12/21/21 09:59 DAILY ESTRELLITA Intake & Output (Last 24 hours) 11/29/21 11/30/21 12/01/21 12/02/21 11:59 11:59 11:59 11:59 Intake Total 1060 665 513 Output Total 550 725 535 Balance 510 -60 -22 Weight 59.2 kg 59.2 kg Orders (Last 24 hours) Category Date Time Status Discharge Routine Discharge 11/30/21 20:15 Ordered Patient Care Notes (Last 24 hours) 12/01/21 01:30 Late Entry Note by Marian Sam This nurse attempted to contact Dr. Aguilar at 2030 to notify him of patient's . No answer but message left for return call. Initialized on 12/01/21 01:30 - END OF NOTE 12/01/21 00:37 Nursing Note by Marian Sam Patient apneic and without heartbeat on 11/30/21 at 2015, asystole on telemetry. Verified by this nurse and DASHAWN Gifford, ENVIRONMENTAL COMPLIANCE MANAGER. Patient's daughter at bedside at time of . Emotional support provided. Liseth Oviedo RN HS called [facility] and home staff at [facility] in [place], [place]. At appx 2200 postmortem care performed. Chest tube removed, IV removed, [employer] pump medication (morphine) wasted with this nurse and Ирина TAMEZ, ENVIRONMENTAL COMPLIANCE MANAGER as witnesses, vaughan catheter removed. At 2335 [facility] staff arrived. Patient was transferred to [facility] and taken to [facility] in [place], [place] per daughter's request. Addendum entered by Marian Sam 12/01/21 06:48: 26mL morphine wasted from [employer] pump cartridge and witnessed between this RN and Ирина Toscano RN ENVIRONMENTAL COMPLIANCE MANAGER. Patient received 8.6mg or 8.6mL of morphine from continuous [employer] pump infusion prior to passing on at 2014. Initialized on 12/01/21 00:37 - END OF NOTE 11/30/21 15:25 Nutrition Note by Sydni Mcginnis F/u Note: Note heart healthy diet order con't with poor po intake. Note pt declining. Urgent chest tube placed, pt unresponsive. Will con't to monitor and f/u prn. T.ABEBE Mcginnis Initialized on 11/30/21 15:25 - END OF NOTE Vital Signs Temp 99.0 F 11/30/21 19:00 Pulse 92 H 11/30/21 19:00 Resp 9 L 11/30/21 19:00 BP 53/42 11/30/21 19:00 Pulse Ox 82 L 11/30/21 19:00 Intake & Output 11/30/21 12/01/21 12/01/21 23:59 11:59 23:59 Intake Total 513 Output Total 535 Balance -22 Intake: Intake, IV Amount 513 Output: Output, Vaughan: 300 Chest Tube #1 235 Other: Number of Bowel Movements 0 - Vitals & Intake/Output Vital Signs: Vital Signs Temperature 99.0 F 11/30/21 19:00 Pulse Rate 92 H 11/30/21 19:00 Respiratory Rate 9 L 11/30/21 19:00 Blood Pressure 53/42 11/30/21 19:00 O2 Sat by Pulse Oximetry 82 L 11/30/21 19:00 Intake & Output: Intake & Output 11/29/21 11/30/21 12/01/21 12/02/21 11:59 11:59 11:59 11:59 Intake Total 1060 665 513 Output Total 550 725 535 Balance 60 -22 Weight 59.2 kg 59.2 kg - Lab Result Diagrams: 11/29/21 10:13 11/29/21 10:13 Micro Results-Entire Visit: Microbiology 11/20/21 11:44 Blood Culture Gram Stain - Final Blood Blood Culture - Final Staphylococcus Aureus 11/20/21 11:25 Blood Culture Gram Stain - Final Blood Blood Culture - Final Staphylococcus Aureus 11/20/21 11:43 Urine Culture - Final Catherized Strep Dysgalactiae Ssp Equisim - Radiology Exams Ordered Rad Exams-Entire Visit: Radiology Procedures Category Date Time Status CHEST 1 VIEW (PORTABLE) Routine Exams 11/30/21 08:00 Completed - Procedures and Test Procedures and Tests throughout Hospitalization: Therapy Orders & Screens 11/20/21 11:45 BiPap/CPAP ROUTINE Comment: Diagnosis: thrombocytopenia, elevated troponin 11/20/21 15:30 EKG ROUTINE Comment: Diagnosis: thrombocytopenia, elevated troponin 11/20/21 16:27 Oxygen High Flow per RT 50% Comment: Diagnosis: thrombocytopenia, elevated troponin Respiratory Therapy Assessment DAILY Comment: Diagnosis: thrombocytopenia, elevated troponin Discharge Exam Respiratory Exam: other (no respiration. no heart rate) Final Diagnosis/Problem List - Final Discharge Diagnosis/Problem (1) Pneumothorax Status: Acute Code(s): J93.9 - PNEUMOTHORAX, UNSPECIFIED (2) Pneumonia Status: Acute Code(s): J18.9 - PNEUMONIA, UNSPECIFIED ORGANISM (3) PSVT (paroxysmal supraventricular tachycardia) Status: Acute Code(s): I47.1 - SUPRAVENTRICULAR TACHYCARDIA (4) Acute on chronic respiratory failure Status: Acute Code(s): J96.20 - ACUTE AND CHR RESP FAILURE, UNSP W HYPOXIA OR HYPERCAPNIA (5) Thrombocytopenia Status: Acute (6) Acute renal failure Status: Acute - Discharge Discharge Date: 11/30/21 Disposition: Condition: Prescriptions: No Action Paroxetine HCl 20 mg [Paxil 20 MG] 20 mg PO DAILY Folic Acid 1 mg [Folate 1 mg] 1 mg PO DAILY Carvedilol 3.125 mg [Coreg 3.125 MG] 3.125 mg PO BID Tiotropium Banner Inhaler [Spiriva 18 Mcg/Cap Inhaler] 1 puff IH DAILY Omeprazole 20 mg PO DAILY Mirtazapine 30 mg [Remeron 30 mg] 30 mg PO QHS Gabapentin 100 mg [Neurontin 100 MG] 100 mg PO BID Fluticasone/Salmeterol 45/21 [Advair Hfa 45-21 Mcg Inhaler] 2 puff IH BID Fluticasone Propionate [Flonase NASAL] 1 spray NS DAILY PRN PRN PRN Reason: Allergies Atorvastatin Calcium [Lipitor 20MG Tablet] 20 mg PO DAILY Prednisone 20 mg [Deltasone 20 mg] 20 mg PO BID Leflunomide 20 mg PO DAILY
== END 2021-11-30 23:35 | disposition expired | DRG 199 ==
LOC: ED 10:53 → ICU 14:54
PROVIDERS: ADMIT Family Medicine; ATTEND General Practice
PROC: 0W9900Z Drainage of Right Pleural Cavity with Drainage Device, Open Approach (ICD-10-PCS; principal; 2021-11-29)
DX: J93.9 Pneumothorax, unspecified (principal); J18.9 Pneumonia, unspecified organism; J96.21 Acute and chronic respiratory failure with hypoxia; J96.22 Acute and chronic respiratory failure with hypercapnia; I47.1 Supraventricular tachycardia; N17.9 Acute kidney failure, unspecified; D69.6 Thrombocytopenia, unspecified; J44.9 Chronic obstructive pulmonary disease, unspecified; I25.10 Atherosclerotic heart disease of native coronary artery without angina pectoris; R77.8 Other specified abnormalities of plasma proteins; I25.2 Old myocardial infarction; I48.91 Unspecified atrial fibrillation; Z99.81 Dependence on supplemental oxygen; Z79.899 Other long term (current) drug therapy; Z20.828 Contact with and (suspected) exposure to other viral communicable diseases
CPT/HCPCS: 0241U; 32551; 36000; 36415; 36430; 36600; 51702; 71045; 77002; 80053; 80202; 81001; 82375; 82565; 82803; 82947; 83605; 83735; 83880; 84484; 85025; 86078; 86900; 86901; 87040; 87077; 87086; 87186; 93005; 93041; 94002; 94003; 94640; 94762; 96365; 96374; 99285; 99291; P9073; J1100; J1956; J2001; J2270; J2930; J3370; Q3014; A9270-GY